=== PATIENT | male | born 1940 | race Caucasian/White ===

== ENCOUNTER 2020-01-26 14:38 | Inpatient (IN) ==
--- NOTE | 2020-01-26 15:31 | Emergency Department Note ---
History of Present Illness General Chief complaint: Weakness Stated complaint: WEAKNESS, INTERNAL BLEEDING Time Seen by Provider: 01/26/20 14:55 Source: patient, RN notes reviewed and old records reviewed Mode of arrival: ambulatory History of Present Illness Provider complaint: GI bleed Onset (ago): week(s) 1 Severity: similar to prior episodes Pain Consistency: + now resolved Maximum Pain Intensity: 0 Current Pain Intensity: 0 Relieved By: + none Exacerbated By: + none Associated symptoms: + weakness; no chest pain, no diaphoresis and no fever/chills Treatments prior to arrival: none This is a 79-year-old male who presents emergency department complaining of generalized weakness. Patient reports he has a history of a Whipple procedure and that his ranitidine was stopped. He was placed on another medication which she has been unable to get filled. He reports approximately a week ago that he began having black tarry stools. 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 Today he became weak and feels dizzy anytime he stands up therefore came to the emergency department. Home Medications Home Medications Medication Instructions Recorded Confirmed Type cimetidine 400 mg PO BID 01/26/20 01/26/20 History colestipol 1 g PO BID 01/26/20 01/26/20 History digoxin 0.125 mcg PO DAILY 01/26/20 01/26/20 History diltiazem HCl 240 mg PO DAILY 01/26/20 01/26/20 History glimepiride 2 mg DAILY 01/26/20 01/26/20 History lisinopril 5 mg PO DAILY 01/26/20 01/26/20 History loperamide [Imodium A-D] 2 mg PO BID 01/26/20 01/26/20 History warfarin 2.5 mg PO [id number] 01/26/20 01/26/20 History warfarin 5 mg PO WK 01/26/20 01/26/20 History acetaminophen [Mapap 650 mg PO Q4H PRN #6 tab 01/27/20 Rx (acetaminophen)] Allergies Allergy/AdvReac Type Severity Reaction Status Date / Time No Known Allergies Allergy Unknown Verified 01/26/20 15:27 Past Med/Surg History Medical History Atrial fibrillation (Chronic) Diabetes mellitus, type II (Chronic) Diarrhea due to malabsorption Dyslipidemia (Chronic) GERD (gastroesophageal reflux disease) (Chronic) HTN (hypertension) Pancreatic cancer (Resolved) Venous insufficiency (Chronic) Surgical History H/O cataract removal with insertion of prosthetic lens (Resolved) H/O total hip arthroplasty (Resolved) History of pancreatectomy (Resolved) "with subtotal duodenectomy performed by Dr. 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 [employer] Other Information That Helps Us Care for You: No Feels Safe at Home: Yes Safety Concerns: Feels Safe At This Time Smoking Status: Never smoker Do You Dip or Chew Tobacco: No ; Second Hand Exposure: No ; Tobacco Cessation Education Requested by Patient: No Hx Alcohol Use: No Hx Substance Use: No Review of Systems A total of 10 systems reviewed and were otherwise negative Physical Exam Vital Signs Vital Signs - 24 hr 01/26/20 14:40 01/26/20 15:32 Temperature 36.7 C Temperature Source Oral Pulse Rate 88 Pulse Rhythm Regular Pulse Strength Normal Respiratory Rate 16 Respiratory Effort / Characteristics Non-Labored Respiratory Depth Normal Respiratory Pattern Regular Blood Pressure 125/59 L Blood Pressure Mean 81 Blood Pressure Position Sitting Pulse Oximetry 97 97 Oxygen Delivery Method Room Air Room Air Sepsis Recent Fever Within 48 Hours No Sepsis Action Taken by Nursing No Action Required GENERAL: Patient is a healthy-appearing well-nourished male HEAD: Normocephalic atraumatic EYES: Ocular movements intact pupils equal and react to light OROPHARYNX mucous membranes are moist no exudates present no erythema or edema present NECK: Supple no nuchal rigidity CHEST: Good equal expansion LUNGS: Clear and equal to auscultation CARDIAC: Normal S1 and S2 ABDOMEN: Soft nontender no guarding BACK: No CVA tenderness RECTAL: Black Tarry stool, Dark red blood; grossly heme positive, No masses EXTREMITIES: No pain upon palpation normal muscle strength in all groups no clubbing cyanosis or edema NEURO: Patient is following commands is answering questions appropriately. Alert and oriented x3 Cranial Nerves 2-12 grossly intact Course Administered Medications Colestipol HCl (Colestid) 1 gm PO BID@1000,2200 [facility] Stop: 02/25/20 21:59 Last Admin: 01/27/20 11:41 Dose: 1 gm Documented by: [id number] Admin: 01/26/20 21:03 Dose: 1 gm Documented by: [id number] Digoxin (Lanoxin) 0.125 mg PO DAILY@1600 [facility] Stop: 02/26/20 15:59 Last Admin: 01/27/20 16:48 Dose: 0.125 mg Documented by: [id number] Diltiazem HCl (Cardizem Cd) 240 mg PO DAILY [facility] Stop: 02/26/20 08:59 Last Admin: 01/27/20 07:30 Dose: 240 mg Documented by: [id number] Pantoprazole Sodium 40 mg/ (Dextrose) 100 mls @ 20 mls/hr IV Q5H [facility] Stop: 02/25/20 15:44 Last Admin: 01/27/20 16:51 Dose: 20 mls/hr Documented by: [id number] Infusion: 01/27/20 16:51 Dose: 20 mls/hr Documented by: [id number] Admin: 01/27/20 13:21 Dose: 20 mls/hr Documented by: [id number] Infusion: 01/27/20 12:26 Dose: 20 mls/hr Documented by: [id number] Admin: 01/27/20 07:26 Dose: 20 mls/hr Documented by: [id number] Infusion: 01/27/20 06:56 Dose: 20 mls/hr Documented by: [id number] Admin: 01/27/20 01:56 Dose: 20 mls/hr Documented by: [id number] Infusion: 01/27/20 01:56 Dose: 20 mls/hr Documented by: [id number] Admin: 01/26/20 21:00 Dose: 20 mls/hr Documented by: [id number] Infusion: 01/26/20 21:00 Dose: 20 mls/hr Documented by: [id number] Admin: 01/26/20 16:37 Dose: 20 mls/hr Documented by: [id number] Piperacillin Sod/Tazobactam (Sod 3.375 gm/ Dextrose) 115 mls @ 28.75 mls/hr IV Q8H [facility]; Protocol Stop: 02/06/20 01:59 Last Admin: 01/27/20 18:03 Dose: 28 mls/hr Documented by: [id number] Infusion: 01/27/20 15:39 Dose: 0 mls/hr Documented by: [id number] Admin: 01/27/20 11:39 Dose: 28.8 mls/hr Documented by: [id number] Infusion: 01/27/20 05:56 Dose: 28.8 mls/hr Documented by: [id number] Admin: 01/27/20 01:56 Dose: 28.8 mls/hr Documented by: [id number] Insulin Aspart (Novolog Flexpen) 0 units SC [facility] Stop: 02/25/20 20:59 Last Admin: 01/27/20 16:49 Dose: Not Given Documented by: [id number] Cosigned by: [id number] Admin: 01/27/20 13:22 Dose: Not Given Documented by: [id number] Cosigned by: [id number] Admin: 01/27/20 09:47 Dose: Not Given Documented by: [id number] Cosigned by: [id number] Admin: 01/26/20 21:02 Dose: Not Given Documented by: [id number] Cosigned by: [id number] Insulin Glargine (Lantus Solostar Pen) 5 units SC [facility] Stop: 02/25/20 20:59 Last Admin: 01/26/20 21:01 Dose: 5 units Documented by: [id number] Cosigned by: [id number] Discontinued Medications Pantoprazole Sodium (Protonix Bolus/Drip) 0 mls @ 1 mls/hr IV ONE STA Stop: 01/26/20 15:33 Last Infusion: 01/27/20 17:09 Dose: 0 mls/hr Documented by: [id number] Admin: 01/26/20 16:37 Dose: 1 mls/hr Documented by: [id number] Pantoprazole Sodium 80 mg/ (Dextrose) 120 mls @ 400 mls/hr IV NOW ONE Stop: 01/26/20 15:49 Last Infusion: 01/26/20 16:37 Dose: 0 mls/hr Documented by: [id number] Admin: 01/26/20 16:08 Dose: 400 mls/hr Documented by: [id number] Phytonadione 5 mg/ Sodium (Chloride) 50.5 mls @ 101 mls/hr IV ONE ONE Stop: 01/26/20 16:56 Last Infusion: 01/26/20 18:15 Dose: 0 mls/hr Documented by: [id number] Admin: 01/26/20 16:48 Dose: 101 mls/hr Documented by: [id number] Piperacillin Sod/Tazobactam (Sod 3.375 gm/ Dextrose) 115 mls @ 230 mls/hr IV NOW ONE; Protocol Stop: 01/26/20 20:29 Last Infusion: 01/26/20 21:30 Dose: 230 mls/hr Documented by: [id number] Admin: 01/26/20 21:00 Dose: 230 mls/hr Documented by: [id number] Ioversol (Optiray 320 100ml) 93 ml IV ONCE PRN PRN Reason: Interaction Checking Stop: 01/30/20 15:55 Last Admin: 01/26/20 15:56 Dose: 1 ml Documented by: [id number] Lidocaine HCl (Xylocaine 2%) Confirm Administered Dose 4 ml INFIL .STK-MED ONE Stop: 01/27/20 10:51 Last Admin: 01/27/20 13:22 Dose: Not Given Documented by: [id number] Propofol (Diprivan) Confirm Administered Dose 200 mg IV .STK-MED ONE Stop: 01/27/20 10:51 Last Admin: 01/27/20 13:22 Dose: Not Given Documented by: [id number] Critical Care Time I have personally spent greater than 90 minutes of critical care time in the direct management of this patient. This includes bedside care, interpretation of diagnostic studies, and testing, discussion with consultants, patient, and family members, and other required patient management activities. This 90 minutes is in excess of all separately billable procedures. Medical Decision Making Differential Diagnosis Diverticulosis, AVM, coagulopathy, colitis, inflammatory bowel disease, malignancy, Fiordaliza-Tavarez tear, esophagitis, peptic ulcer disease, variceal bleed, gastritis, epistaxis, fissure, hemorrhoids, as well as other pathologies. Medical Records Attestation: I reviewed the patient's medical records. Home Medications Current Medication List: was personally reviewed by me Laboratory Data Attestation: I reviewed the patient's lab results. Result diagrams: 01/27/20 15:12 01/27/20 03:06 Lab Results 01/26/20 01/26/20 01/26/20 Range/Units 15:23 15:23 15:23 WBC 7.48 (4.8-10.8) K/uL RBC 2.88 L (4.7-6.1) M/uL Hgb 8.0 L (14.0-18.0) g/dL POC Hgb (14.0-18.0) g/dl Hct 24.4 L (42-52) % POC Hct (42-52) % MCV 84.7 (80-100) fL MCH 27.8 (25-34) pg MCHC 32.8 (32-36) g/dL RDW Std Deviation 48.0 H (36.4-46.3) fL RDW Coeff of Aleks 15.3 H (11.5-14.5) % Plt Count 169 (130-400) K/uL MPV 11.0 H (7.4-10.4) fL Immature Gran % (Auto) 0.4 % Neut % (Auto) 74.9 % Lymph % (Auto) 12.8 % Beckham % (Auto) 8.3 % Eos % (Auto) 3.2 % Baso % (Auto) 0.4 % Immature Gran # (Auto) 0.03 H (0.00-0.02) K/uL Neut # (Auto) 5.60 (1.4-6.5) K/uL Lymph # (Auto) 0.96 L (1.2-3.4) K/uL Beckham # (Auto) 0.62 H (0.11-0.59) K/uL Eos # (Auto) 0.24 (0-0.5) K/uL Baso # (Auto) 0.03 (0-0.2) K/uL PT 23.7 H (9.0-12.0) Seconds INR 2.4 H (0.9-1.1) APTT 32.9 H (21.0-31.0) Seconds PTT Ratio 1.2 POC Sodium (135-144) mmol/L Sodium (136-145) mmol/L POC Potassium (3.3-5.0) mmol/L Potassium (3.5-5.1) mmol/L POC Chloride (101-112) mmol/L Chloride (98-107) mmol/L Carbon Dioxide (21-32) mmol/L POC Total CO2 (24-31) mEq/l Anion Gap (3-11) POC Anion Gap (16-25) mmol/L POC BUN (7-18) mg/dl BUN (7-18) mg/dl Creatinine (0.6-1.4) mg/dl POC Creatinine (0.6-1.3) mg/dl Est Cr Clr Drug Dosing ml/min Est GFR ( Amer) Est GFR (Non-Af Amer) BUN/Creatinine Ratio (10-20) Glucose (70-99) mg/dl POC Glucose (other) (70-99) mg/dl Calcium (8.5-10.1) mg/dl POC Ioniz Calcium Ismael (1.12-1.32) mmol/l Total Bilirubin (0.2-1) mg/dl AST (15-37) U/L ALT (12-78) U/L Alkaline Phosphatase (45-117) U/L Total Creatine Kinase (39-308) U/L CK-MB (CK-2) (0.5-3.6) ng/ml CK/CKMB % Calc (0-3.0) Troponin I (0-0.045) ng/ml Total Protein (6.4-8.2) gm/dl Albumin (3.4-5.0) gm/dl Globulin (2.5-4.0) gm/dl Albumin/Globulin Ratio (0.9-2) Blood Type B Positive Antibody Screen NEGATIVE Crossmatch See Detail 01/26/20 01/26/20 Range/Units 15:23 15:34 WBC (4.8-10.8) K/uL RBC (4.7-6.1) M/uL Hgb (14.0-18.0) g/dL POC Hgb 7.8 L (14.0-18.0) g/dl Hct (42-52) % POC Hct 23 L (42-52) % MCV (80-100) fL MCH (25-34) pg MCHC (32-36) g/dL RDW Std Deviation (36.4-46.3) fL RDW Coeff of Aleks (11.5-14.5) % Plt Count (130-400) K/uL MPV (7.4-10.4) fL Immature Gran % (Auto) % Neut % (Auto) % Lymph % (Auto) % Beckham % (Auto) % Eos % (Auto) % Baso % (Auto) % Immature Gran # (Auto) (0.00-0.02) K/uL Neut # (Auto) (1.4-6.5) K/uL Lymph # (Auto) (1.2-3.4) K/uL Beckham # (Auto) (0.11-0.59) K/uL Eos # (Auto) (0-0.5) K/uL Baso # (Auto) (0-0.2) K/uL PT (9.0-12.0) Seconds INR (0.9-1.1) APTT (21.0-31.0) Seconds PTT Ratio POC Sodium 139 (135-144) mmol/L Sodium 137 (136-145) mmol/L POC Potassium 4.6 (3.3-5.0) mmol/L Potassium 4.6 (3.5-5.1) mmol/L POC Chloride 106 (101-112) mmol/L Chloride 108 H (98-107) mmol/L Carbon Dioxide 22 (21-32) mmol/L POC Total CO2 22 L (24-31) mEq/l Anion Gap 8.0 (3-11) POC Anion Gap 16.0 (16-25) mmol/L POC BUN 26 H (7-18) mg/dl BUN 28 H (7-18) mg/dl Creatinine 1.38 (0.6-1.4) mg/dl POC Creatinine 1.4 H (0.6-1.3) mg/dl Est Cr Clr Drug Dosing 47.8 ml/min Est GFR ( Amer) 56.8 Est GFR (Non-Af Amer) 49.0 BUN/Creatinine Ratio 20.2 H (10-20) Glucose 219 H (70-99) mg/dl POC Glucose (other) 218 H (70-99) mg/dl Calcium 8.3 L (8.5-10.1) mg/dl POC Ioniz Calcium Ismael 1.22 (1.12-1.32) mmol/l Total Bilirubin 0.5 (0.2-1) mg/dl AST 29 (15-37) U/L ALT 38 (12-78) U/L Alkaline Phosphatase 146 H (45-117) U/L Total Creatine Kinase 123 (39-308) U/L CK-MB (CK-2) 3.9 H (0.5-3.6) ng/ml CK/CKMB % Calc 3.2 H (0-3.0) Troponin I 0.019 (0-0.045) ng/ml Total Protein 6.3 L (6.4-8.2) gm/dl Albumin 3.1 L (3.4-5.0) gm/dl Globulin 3.2 (2.5-4.0) gm/dl Albumin/Globulin Ratio 1.0 (0.9-2) Blood Type Antibody Screen Crossmatch Imaging Data Radiologist's Impression: [place] [phone] CT Scan Report Patient: DOMENIC GUEVARA Admit Date: 01/26/20 MR#: [id number] Address1: [address] [place] [address] Acct ID:[id number] Address2: Date: 1940 [facility] Zip: [place] [address] Age: 79 Location: ED Sex: M Room/Bed: Att Phy: Diagnosis: WEAKNESS, INTERNAL BLEEDING Lorie Phy: Jordan Grant MD Service Date: 01/26/20 [facility] Phy: Interpreting Phy: Jordan Pang MD Admit Phy: Ordering Phy: Benito Carrillo MD cc: ~ CT abd pelvis IV con only CT DOSE: 913.92 mGycm HISTORY: Pain Pt c/o hx of whipple, abd pain TECHNIQUE: Multiaxial CT images of the abdomen and pelvis were performed following the use of intravenous contrast. A dose lowering technique was utilized adhering to the principles of ALARA. COMPARISON STUDY: 06/04/2016 FINDINGS: Small bilateral pleural effusions. Small parenchymal infiltrate/atelectasis right base. The liver is uniform. There is a trace amount of perihepatic ascites. Spleen remains unremarkable. There are findings of a prior Whipple type procedure. Kidneys are negative for hydronephrosis. Several small cortical renal cysts are present bilaterally. These are similar compared to the prior study. The cystic density previously described at the juncture of the pancreatic body and jejunum are diminished compared to the prior study. Maximum dimensions of diminished from 3.3 to 1.5 cm and 2.2 to 1.0 cm. Dilatation of the residual pancreatic duct persists. The bowel pattern is suggestive of a nonspecific enteritis. Postoperative changes appear to be nonobstructive. There is no significant bowel distention. Bladder is midline. There is a trace amount of infiltrative change of the pararenal spaces bilaterally considered chronic. IMPRESSION: 1. Mild nonspecific generalized enteritis. 2. Trace perihepatic ascites. 3. Operative changes consistent with a prior Whipple type procedure 4. Improved appearance to the cystic pancreatic/anastomotic lesions described previously. 5. Interval development of a trace amount of bilateral pleural fluid with mild atelectasis right lung base. ACT 112: Negative or not required by law. The above report was generated using voice recognition software. It may contain grammatical, syntax or spelling errors. Electronically signed by: Jordan Pang M.D. 01/26/2020 4:12 PM Dictated: 01/26/20 1605 Transcribed: 01/26/20 1605 [place], [place] [phone] XRay Report Patient: DOMENIC GUEVARA Admit Date: 01/26/20 MR#: [id number] Address1: [address] [place] [address] Acct ID:[id number] Address2: Date: 1940 [facility] Zip: [place] [address] Age: 79 Location: ED Sex: M Room/Bed: Att Phy: Diagnosis: WEAKNESS, INTERNAL BLEEDING Lorie Phy: Jordan Grant MD Service Date: 01/26/20 [facility] Phy: Interpreting Phy: Jordan Pang MD Admit Phy: Ordering Phy: Benito Carrillo MD cc: ~ XR chest 1V portable CLINICAL HISTORY: Pt c/o weakness dyspnea COMPARISON STUDY: 01/26/2020 FINDINGS: The bones soft tissues and hemidiaphragms are normal. The cardiomediastinal silhouette is normal. The lungs are clear. The pulmonary vasculature is normal. IMPRESSION: Negative chest. ACT 112: Negative or not required by law. The above report was generated using voice recognition software. It may contain grammatical, syntax or spelling errors. Electronically signed by: Jordan Pang M.D. 01/26/2020 4:13 PM Dictated: 01/26/201611 Transcribed: 01/26/201611 ECG Data Attestation: I personally reviewed and interpreted this ECG as follows: Indication: + weakness Rate (beats per minute): 82 Rhythm: + atrial fibrillation ECG Intervals/blocks: + Normal QT-c (401) ECG Linn: + Normal ECG ST segments: no ST depression and no ST elevation ECG Findings: + PVCs Comparison ECG Date: from (12/30/2015) Change: the following changes noted (PVCs noted) Blood Pressure Blood Pressure Findings: Elevated blood pressure Blood Pressure Disposition: elevated BP felt to be situational MDM Narrative This is a 79-year-old male who presents emergency department with concerns over GI bleeding. The patient has a history of Whipple procedure. He has never needed a blood transfusion before however his hemoglobin here is 8.0. Blood consent was signed and placed on the chart. I did discuss the case with the hospitalist service who did agree to admit the patient. Patient was also started on Protonix bolus and drip. Patient is in agreement with the treatment plan. The patient was evaluated during the global COVID-19 pandemic, and that diagnosis was suspected/considered upon their initial presentation. Their evaluation, treatment and testing was consistent with current guidelines for patients who present with complaints or symptoms that may be related to COVID- 19. Cardiac monitoring: An order was placed for continuous cardiac monitoring. The monitor shows a rate of 68 with atrial fibrillation rhythm. Impression & Plan GIB (gastrointestinal bleeding), Atrial fibrillation, Acute blood loss anemia Discharge Plan Visit Data *Final* Discharge Date/Time: 01/26/20 19:00 Chief Complaint: Weakness Stated Complaint: WEAKNESS, INTERNAL BLEEDING ED Provider: Benito Carrillo Discharge Problem: GIB (gastrointestinal bleeding), Atrial fibrillation, Acute blood loss anemia Patient Disposition: Admitted As Inpatient Condition: Serious Discharge Instructions Interventions: ED Discharge Assessment Last Done: 01/26/20 19:00 Discharge Problem: GIB (gastrointestinal bleeding) Qualifiers: GI bleed type/associated pathology: unspecified gastrointestinal hemorrhage type Qualified Code(s): K92.2 - Gastrointestinal hemorrhage, unspecified Atrial fibrillation Qualifiers: Atrial fibrillation type: unspecified Qualified Code(s): I48.91 - Unspecified atrial fibrillation
[2020-01-26] MEDS ORDERED: SODIUM CHLORIDE 0.9% 250 ML IV PRN ×2 (15:32→16:27)
[2020-01-26] MEDS ORDERED: PANTOPRAZOLE BOLUS/DRIP 1 EA IV STA (15:32)
[2020-01-26] MEDS ORDERED: PANTOprazole 80 MG in DEXTROSE 5% 100 ML IV ONE ×2 (15:32→15:45)
[2020-01-26 15:44] LABS: Basophils # (auto) 0.03 K/uL (0-0.2); Basophils % (auto) 0.4 %; Eosinophils # (auto) 0.24 K/uL (0-0.5); Eosinophils % (auto) 3.2 %; Hematocrit (blood only) 24.4 % (42-52); Immature Granulocytes # (auto) 0.03 K/uL (0.00-0.02); Immature Granulocytes % (auto) 0.4 %; Lymphocytes # (auto) 0.96 K/uL (1.2-3.4); Lymphocytes % (auto) 12.8 %; Mean Corpuscular Hemoglobin 27.8 pg (25-34); Mean Corpuscular Hgb Conc 32.8 g/dL (32-36); Mean Corpuscular Volume 84.7 fL (80-100); Monocytes # (auto) 0.62 K/uL (0.11-0.59); Monocytes % (auto) 8.3 %; Neutrophils % (auto) 74.9 %; Platelet Count 169 K/uL (130-400); RDW Coefficient of Variation 15.3 % (11.5-14.5); Red Blood Count 2.88 M/uL (4.7-6.1); White Blood Count 7.48 K/uL (4.8-10.8)
[2020-01-26 15:46] LABS: iSTAT Creatinine 1.4 mg/dl (0.6-1.3); iSTAT Hemoglobin 7.8 g/dl (14.0-18.0); iSTAT Ionized Calcium 1.22 mmol/l (1.12-1.32); iSTAT Potassium 4.6 mmol/L (3.3-5.0)
[2020-01-26 15:56] LABS: INR 2.4 (0.9-1.1); Partial Thromboplastin Ratio 1.2; Partial Thromboplastin Time 32.9 Seconds (21.0-31.0); Prothrombin Time 23.7 Seconds (9.0-12.0)
[2020-01-26] MEDS ORDERED: IOVERSOL 100ml IV PRN (15:56)
[2020-01-26 16:00] LABS: Albumin Level 3.1 gm/dl (3.4-5.0); BUN Creatinine Ratio 20.2 (10-20); Calcium 8.3 mg/dl (8.5-10.1); Creatinine Clr Calc Pharmacy 47.8 ml/min; Est GFR (African American) 56.8; Potassium 4.6 mmol/L (3.5-5.1)
[2020-01-26 16:05] LABS: Bilirubin,Total 0.5 mg/dl (0.2-1); Creatine Kinase MB 3.9 ng/ml (0.5-3.6); Globulin 3.2 gm/dl (2.5-4.0); Total Protein 6.3 gm/dl (6.4-8.2); Troponin I 0.019 ng/ml (0-0.045)
--- NOTE | 2020-01-26 16:13 | CT Scan Report ---
CT abd pelvis IV con only CT DOSE: 913.92 mGycm HISTORY: Pain Pt c/o hx of whipple, abd pain TECHNIQUE: Multiaxial CT images of the abdomen and pelvis were performed following the use of intrave nous contrast. A dose lowering technique was utilized adhering to the principles of ALARA. COMPARISON STUDY: 06/04/2016 FINDINGS: Small bilateral pleural effusions. Small parenchymal infiltrate/atelectasis right base. The liver is uniform. There is a trace amount of perihepatic ascites. Spleen remains unremarkable. There are findings of a prior Whipple type procedure. Kidneys are negative for hydronephrosis. Severa l small cortical renal cysts are present bilaterally. These are similar compared to the prior study. The cystic density previously described at the juncture of the pancreatic body and jejunum are dimini shed compared to the prior study. Maximum dimensions of diminished from 3.3 to 1.5 cm and 2.2 to 1.0 cm. Dilatation of the residual pancreatic duct persists. The bowel pattern is suggestive of a nonspecific enteritis. Postoperative changes appear to be nonobs tructive. There is no significant bowel distention. Bladder is midline. There is a trace amount of infiltrative change of the pararenal spaces bilaterall y considered chronic. IMPRESSION: 1. Mild nonspecific generalized enteritis. 2. Trace perihepatic ascites. 3. Operative changes consistent with a prior Whipple type procedure 4. Improved appearance to the cystic pancreatic/anastomotic lesions described previously. 5. Interval development of a trace amount of bilateral pleural fluid with mild atelectasis right lung base. ACT 112: Negative or not required by law. The above report was generated using voice recognition software. It may contain grammatical, syntax or spelling errors. Electronically signed by: Jordan Pang M.D. 01/26/2020 4:12 PM
--- NOTE | 2020-01-26 16:14 | XRay Report ---
XR chest 1V portable CLINICAL HISTORY: Pt c/o weakness dyspnea COMPARISON STUDY: 01/26/2020 FINDINGS: The bones soft tissues and hemidiaphragms are normal. The cardiomediastinal silhouette is n ormal. The lungs are clear. The pulmonary vasculature is normal. IMPRESSION: Negative chest. ACT 112: Negative or not required by law. The above report was generated using voice recognition software. It may contain grammatical, syntax or spelling errors. Electronically signed by: Jordan Pang M.D. 01/26/2020 4:13 PM
[2020-01-26] MEDS ORDERED: PHYTONADIONE 5 MG in SODIUM CHLORIDE 0.9% 50 ML IV ONE (16:27)
--- NOTE | 2020-01-26 16:29 | Electrocardiogram Report ---
Test Reason : Blood Pressure : / mmHG Vent. Rate : 082 BPM Atrial Rate : 054 BPM P-R Int : 000 ms QRS Dur : 074 ms QT Int : 344 ms P-R-T Axes : 000 013 052 degrees QTc Int : 401 ms Atrial fibrillation with premature ventricular or aberrantly conducted complexes Nonspecific T wave abnormality Abnormal ECG When compared with ECG of 30-DEC-2015 14:48, Borderline criteria for Inferior infarct are no longer Present Confirmed by Bob Ramírez ([id number]) on 01/26/2020 4:28:54 PM Referred By: REFERRED SELF Confirmed By:Bob Ramírez
[2020-01-26] MEDS: PANTOprazole 40 MG in DEXTROSE 5% 100 ML IV SCH ×2 (16:37→21:00)
--- NOTE | 2020-01-26 17:21 | History & Physical Report ---
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 In ED he remained hemodynamically stable. Lab work notable for H&H 8.0 and 24.4, WBC 7.48, platelet 164, INR 2.4, BUN 28, creatinine 1.3, glucose 216, chest x-ray no acute abnormality. CT scan abdomen pelvis concerning for nonspecific enteritis. He was initiated on PPI bolus and drip, given 5 mg IV vitamin K and type and cross for transfusion. admit to PCU Continue PPI gtt Transfuse 1 unit prbc repeat H&H and PT/INR @ 9pm H&H q6h , transfuse hgb < 8.0 consult GI clear liquid diet, NPO after midnight IV zosyn due to concern for enteritis (3) Enteritis: CT scan abd/pelvis: Mild nonspecific generalized enteritis. afebrile, wbc WNL, but pt with bloody diarrhea Chronic diarrhea due to hx of whipple procedure due to pancreatic ca in 2009 on colestipol No increase in freq of diarrhea check stool studies (4) FRANKO (acute kidney injury): baseline cr 1.0 Bun/Cr 28 and 1.38 today likely in setting of hypovolemia and GIB hold lisinopril, Transfuse monitor renal fxn, avoid nephrotoxic agents (5) Diabetes mellitus, type II: Last A1c 6.3 09/2019 Repeat A1c in a.m. Glimepiride BSG [address] on low-dose Lantus/NovoLog per protocol (6) Atrial fibrillation: Chronic Afib, [id number] 3 rate controlled with diltiazem, digoxin and on warfarin for prison anticoagulation Hold warfarin, IV vit K given to reverse INR repeat INR @ 9pm (7) History of pancreatic cancer: hx of pancreatic ca s/p whipple procedure in 2009 (8) HTN (hypertension): continue diltiazem hold lisinopril in setting of GIB bleed and hypovolemia (9) DVT prophylaxis: SCD/TEDS Disposition: admit to PCU Follow up: PCP Dr. Grant upon discharge Pt was seen and examined in collaboration with Dr. Miguel, please see addendum History of Present Illness Chief Complaint: Black tarry stools x4 to 5 days. 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 He states approximately a week and a half ago he ran out of his ranitidine and was unable to get it refilled secondary to it coming off the market. He noticed approximately a week ago he started developing epigastric discomfort that would come and go. Meals would make it worse. Pain was nonradiating, described as an ache, wax and wane, improved with time and over the past 4 to 5 days has been associated with black tarry stool. What alarmed him this morning was when he had a bowel movement and also noticed bright red blood. He called into his PCP who recommended he go to the ED for further evaluation. He further admits to being lightheaded, dizzy but no overt syncope, dyspnea on exertion and overall weak. He does have chronic diarrhea ever since having the procedure and takes colestipol 1 g twice a day for this. He does not feel his diarrhea is any worse as he usually has 3 BMs a day; however, he has had 4 already today. 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 He denies any fever, chills, sweats, syncope, chest pain, palpitations, shortness with at rest, cough, hemoptysis, nausea, vomiting, dysuria, increased urgency or frequency with urination. He denies any weight loss. His appetite is overall been decreased. He denies any exposure to known COVID-19 contacts, denies loss of taste or smell and has not traveled out of the state in the past 14 days. In ED he remained hemodynamically stable. Lab work notable for H&H 8.0 and 24.4, WBC 7.48, platelet 164, INR 2.4, BUN 28, creatinine 1.3, glucose 216, chest x-ray no acute abnormality. CT scan abdomen pelvis concerning for nonspecific enteritis. He was initiated on PPI bolus and drip, given 5 mg IV vitamin K and type and cross for transfusion. Allergies Allergy/AdvReac Type Severity Reaction Status Date / Time No Known Allergies Allergy Unknown Verified 01/26/20 15:27 Home Medications Home Medications Medication Instructions Recorded Confirmed Type cimetidine 400 mg PO BID 01/26/20 01/26/20 History colestipol 1 g PO BID 01/26/20 01/26/20 History digoxin 0.125 mcg PO DAILY 01/26/20 01/26/20 History diltiazem HCl 240 mg PO DAILY 01/26/20 01/26/20 History glimepiride 2 mg DAILY 01/26/20 01/26/20 History lisinopril 5 mg PO DAILY 01/26/20 01/26/20 History loperamide [Imodium A-D] 2 mg PO BID 01/26/20 01/26/20 History warfarin 2.5 mg PO [id number] 01/26/20 01/26/20 History warfarin 5 mg PO WK 01/26/20 01/26/20 History Past Med/Surg History Medical History (Updated 01/26/20 @ 17:50 by Nichol Rowland PA-C) Atrial fibrillation (Chronic) Diabetes mellitus, type II (Chronic) Diarrhea due to malabsorption Dyslipidemia (Chronic) GERD (gastroesophageal reflux disease) (Chronic) HTN (hypertension) Pancreatic cancer (Resolved) Venous insufficiency (Chronic) Surgical History (Updated 01/26/20 @ 17:25 by Nichol Rowland PA-C) H/O cataract removal with insertion of prosthetic lens (Resolved) H/O total hip arthroplasty (Resolved) History of pancreatectomy (Resolved) "with subtotal duodenectomy performed by Dr. 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 [employer] Feels Safe at Home: Yes Smoking Status: Never smoker Hx Alcohol Use: No Hx Substance Use: No Review of Systems Review of Systems: All systems reviewed & are unremarkable except as noted in HPI & below Physical Exam Physical Exam: Constitutional: WD/WN, pale, male, vitals as above, NAD, sitting up in bed, pleasant, conversing easily Head: Normocephalic, Atraumatic Eyes: PERRL, conjunctivae normal, anicteric sclerae ENMT: external ear and nose normal, oropharynx normal Neck: trachea midline, no thyromegaly normal visual inspection Respiratory: normal respiratory effort, lungs clear to auscultation, no wheeze, rales, rhonchi. Normal insp/exp effort, no accessory muscle use Cardiovascular: IRR/IRR, no murmur, trace pretibial edema, bilateral venous insufficiency changes regarding the left, bilateral pedal pulse +1 and equal Vessels: no JVD or carotid bruit Chest: normal inspection of chest Abdomen: normal bowel sounds, soft, tender to palpation in epigastrium, no rebound, no guarding, no rigidity, no hepatosplenomegaly Musculoskeletal: no cyanosis or clubbing, extremities motor strength 5/5 Skin: no rashes, warm and dry normal turgor Neurologic: PERRL, EOMI, accommodation nl, no face palsy, no dysarthria CN's II-XI intact bilaterally and moves all extremities Psychiatric: A+Ox3, euthymic affect Lymphatic: no cervical or axillary lymphadenopathy : deferred Results & Data Results & Data ([facility]) Vital Signs (Past 12 Hours) Vital Signs Temp Pulse Resp BP Pulse Ox 01/26/20 16:36 78 22 128/59 L 99 01/26/20 15:32 97 01/26/20 14:40 36.7 C 88 16 125/59 L 97 Laboratory Results Short CBC 01/26/20 Range/Units 15:23 WBC 7.48 (4.8-10.8) K/uL Hgb 8.0 L (14.0-18.0) g/dL Hct 24.4 L (42-52) % Plt Count 169 (130-400) K/uL BMP 01/26/20 15:23 Sodium 137 Potassium 4.6 Chloride 108 H Carbon Dioxide 22 BUN 28 H Creatinine 1.38 Glucose 219 H Calcium 8.3 L Cardiac Enzymes 01/26/20 Range/Units 15:23 Total Creatine Kinase 123 (39-308) U/L CK-MB (CK-2) 3.9 H (0.5-3.6) ng/ml Troponin I 0.019 (0-0.045) ng/ml Liver Function 01/26/20 Range/Units 15:23 Total Bilirubin 0.5 (0.2-1) mg/dl AST 29 (15-37) U/L ALT 38 (12-78) U/L Alkaline Phosphatase 146 H (45-117) U/L Albumin 3.1 L (3.4-5.0) gm/dl Diagnostic Findings CXR: IMPRESSION: Negative chest. CT abd/Pelvis: IMPRESSION: 1. Mild nonspecific generalized enteritis. 2. Trace perihepatic ascites. 3. Operative changes consistent with a prior Whipple type procedure 4. Improved appearance to the cystic pancreatic/anastomotic lesions described previously. 5. Interval development of a trace amount of bilateral pleural fluid with mild atelectasis right lung base. ECG Rate (beats per minute): 80 Rhythm: atrial fibrillation Code Status & VTE Plan Code Status Full Code VTE Prophylaxis Plan VTE Prophylaxis will be ordered: Yes Reason for no VTE drug order: Contraindicated Supervising Physician Co-Signing Physician Notes I saw this patient with the physician clinical data assistant, I participated in the history, physical, review of systems, and physical exam. I reviewed the medications with the patient and the physician clinical data assistant and helped reconcile the medications. I helped take a detailed family and social history as well. I formulated the assessment and plan personally with the physician clinical data assistant and went over it with the patient. ROS-No Headache, No Visual Changes, No Nausea, No Vomiting, No Fever, No Chills, No Neck Pain or Stiffness, No Chest Pain, No Palpitations, No SOB, No ARROYO, No Cough, No Sputum, No Wheezing, No Abdominal Pain, No Diarrhea, No Hematemesis, No Hemoptysis, No Unexpected Weight Loss, No Flank pain, + Melena, +BRBPR, No Hematochezia, No Frequency, No Urgency, No Burning, No Hematuria, No Rashes, No Diaphoresis. Appetite is Normal Physical Exam Gen-AAO x 3, NAD, Afebrile Head-NCAT, EOMI, PERRLA, Anicteric Sclera, No Posterior Pharyngeal Erythema Neck-Supple, No JVD, No Thyromegaly, No Masses, No LAD, No Bruits Lungs-Clear to Auscultation Bilaterally, No Rales, No Rhonchi, No Wheezing, No Crepitus Chest-No S4, +S1, +S2, No S3, No Murmurs, No Rubs, No Gallops, No Ectopy Abdomen-Soft, Bowel Sounds Present, Non Tender, Non Distended, No Hepatomegaly, No Splenomegaly, No Palpable Masses, No Rebound, No Rigidity, No Guarding Musculoskeletal-Full Range of Motion Bilaterally, No CVAT Extremities-No Cyanosis, No Clubbing, No Edema Nuero-Cranial Nerves II-XII grossly intact, Motor WNL, DTRs WNL, Strength WNL, Non Focal Psych-Normal Mood
[2020-01-26] MEDS ORDERED: GLUCOSE 10 TABS/TUBE PO PRN (19:28)
[2020-01-26] MEDS ORDERED: CARBOHYDRATES FOR HYPOGLYCEMIA PO PRN (19:28)
[2020-01-26] MEDS ORDERED: GLUCAGON FOR INJ 1 MG VIAL SQ PRN (19:28)
[2020-01-26] MEDS ORDERED: ACETAMINOPHEN 325 MG TAB PO PRN (19:28)
[2020-01-26] MEDS ORDERED: ONDANSETRON INJ 2 MG/ML 2 ML VIAL IV PRN (19:28)
[2020-01-26] MEDS ORDERED: PIPERACILL/TAZOBAC CONSULT ACTIVE PRN (19:28)
[2020-01-26] MEDS ORDERED: DEXTROSE 50% 50 ML SYRINGE IV PRN (19:28)
[2020-01-26] MEDS ORDERED: POLYETHYLENE (MIRALAX) 17 GM PACK PO PRN (19:28)
[2020-01-26] MEDS ORDERED: GLUCOSE 40% GEL 15 GM TUBE PO PRN (19:28)
[2020-01-26] MEDS ORDERED: PIPERACILLIN/TAZOBACTAM 3.375 GM in DEXTROSE 5% 100 ML IV ONE (20:00)
[2020-01-26] MEDS ORDERED: INSULIN GLARGINE SOLOSTAR 100 UNITS/ML 3 ML PEN SC SCH (21:00)
[2020-01-26] MEDS: INSULIN ASPART 100 UNITS/ML 3 ML PEN SC SCH (21:02)
[2020-01-26] MEDS: COLESTIPOL HCL 1 GM TAB PO SCH (21:03)
[2020-01-26 21:13] LABS: Hematocrit (blood only) 27.6 % (42-52); Hemoglobin 9.2 g/dL (14.0-18.0)
[2020-01-26 21:23] LABS: INR 1.7 (0.9-1.1); Prothrombin Time 17.9 Seconds (9.0-12.0)
[2020-01-27] MEDS: PANTOprazole 40 MG in DEXTROSE 5% 100 ML IV SCH ×4 (01:56→16:51)
[2020-01-27] MEDS: PIPERACILLIN/TAZOBACTAM 3.375 GM in DEXTROSE 5% 100 ML IV SCH ×3 (01:56→18:03)
[2020-01-27 03:27] LABS: Basophils # (auto) 0.03 K/uL (0-0.2); Basophils % (auto) 0.4 %; Eosinophils # (auto) 0.33 K/uL (0-0.5); Eosinophils % (auto) 4.9 %; Hemoglobin 7.8 g/dL (14.0-18.0); Immature Granulocytes # (auto) 0.04 K/uL (0.00-0.02); Immature Granulocytes % (auto) 0.6 %; Lymphocytes # (auto) 1.37 K/uL (1.2-3.4); Lymphocytes % (auto) 20.4 %; Mean Corpuscular Hemoglobin 28.4 pg (25-34); Mean Corpuscular Hgb Conc 33.9 g/dL (32-36); Mean Corpuscular Volume 83.6 fL (80-100); Mean Platelet Volume 10.6 fL (7.4-10.4); Monocytes # (auto) 0.44 K/uL (0.11-0.59); Monocytes % (auto) 6.6 %; Neutrophils # (auto) 4.49 K/uL (1.4-6.5); Neutrophils % (auto) 67.1 %; Platelet Count 136 K/uL (130-400); RDW Coefficient of Variation 15.1 % (11.5-14.5); RDW Standard Deviation 45.9 fL (36.4-46.3); Red Blood Count 2.75 M/uL (4.7-6.1)
[2020-01-27 03:39] LABS: INR 1.5 (0.9-1.1); Prothrombin Time 15.1 Seconds (9.0-12.0)
[2020-01-27 03:46] LABS: Albumin Level 2.6 gm/dl (3.4-5.0); BUN Creatinine Ratio 19.7 (10-20); Calcium 7.8 mg/dl (8.5-10.1); Creatinine Clr Calc Pharmacy 57.5 ml/min; Est GFR (African American) 72.3; Est GFR (Non-African American) 62.4; Potassium 4.2 mmol/L (3.5-5.1)
[2020-01-27 03:48] LABS: Albumin Globulin Ratio 0.8 (0.9-2); Bilirubin,Total 0.7 mg/dl (0.2-1); Globulin 3.1 gm/dl (2.5-4.0); Total Protein 5.7 gm/dl (6.4-8.2)
[2020-01-27 03:52] LABS: Polychromasia 1+
[2020-01-27 06:23] LABS: Estimated Average Glucose 120 mg/dl; Hemoglobin A1C 5.8 % (4.5-5.6)
--- NOTE | 2020-01-27 06:23 | Hospitalist Progress Note ---
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 In ED he remained hemodynamically stable. Lab work notable for H&H 8.0 and 24.4, WBC 7.48, platelet 164, INR 2.4, BUN 28, creatinine 1.3, glucose 216, chest x-ray no acute abnormality. CT scan abdomen pelvis concerning for nonspecific enteritis. He was initiated on PPI bolus and drip, given 5 mg IV vitamin K and type and cross for transfusion. PCU Continue PPI gtt Transfuse 1 unit prbc H&H q6h , transfuse hgb < 8.0 GI to see NPO IV Zosyn due to concern for enteritis (3) Enteritis: CT scan abd/pelvis: Mild nonspecific generalized enteritis. afebrile, wbc WNL, but pt with bloody diarrhea and melena Chronic diarrhea due to hx of whipple procedure due to pancreatic ca in 2009 on colestipol No increase in freq of diarrhea check stool studies (4) FRANKO (acute kidney injury): baseline cr 1.0 likely in setting of hypovolemia and GIB hold lisinopril, Transfuse monitor renal fxn, avoid nephrotoxic agents (5) Diabetes mellitus, type II: Last A1c 6.3 09/2019 Repeat A1c in a.m. Glimepiride BSG 219 in ED Lantus/NovoLog per protocol (6) Atrial fibrillation: Chronic Afib, [id number] 3 rate controlled with diltiazem, digoxin and on warfarin for residential anticoagulation Hold warfarin, IV Vit K given (7) History of pancreatic cancer: hx of pancreatic ca s/p whipple procedure in 2009 (8) HTN (hypertension): continue diltiazem hold lisinopril in setting of GIB bleed and hypovolemia (9) DVT prophylaxis: SCD/TEDS Disposition: admit to PCU Follow up: PCP Dr. Grant upon discharge Labs Checked ROS-No Headache, No Visual Changes, No Nausea, No Vomiting, No Fever, No Chills, No Neck Pain or Stiffness, No Chest Pain, No Palpitations, No SOB, No ARROYO, No Cough, No Sputum, No Wheezing, No Abdominal Pain, No Diarrhea, No Hematemesis, No Hemoptysis, No Unexpected Weight Loss, No Flank pain, No Melena, No Hematochezia, No Frequency, No Urgency, No Burning, No Hematuria, No Rashes, No Diaphoresis. Appetite is Normal Physical Exam Gen-AAO x 3, NAD, Afebrile Head-NCAT, EOMI, PERRLA, Anicteric Sclera, No Posterior Pharyngeal Erythema Neck-Supple, No JVD, No Thyromegaly, No Masses, No LAD, No Bruits Lungs-Clear to Auscultation Bilaterally, No Rales, No Rhonchi, No Wheezing, No Crepitus Chest-No S4, +S1, +S2, No S3, No Murmurs, No Rubs, No Gallops, No Ectopy Abdomen-Soft, Bowel Sounds Present, Non Tender, Non Distended, No Hepatomegaly, No Splenomegaly, No Palpable Masses, No Rebound, No Rigidity, No Guarding Musculoskeletal-Full Range of Motion Bilaterally, No CVAT Extremities-No Cyanosis, No Clubbing, No Edema Nuero-Cranial Nerves II-XII grossly intact, Motor WNL, DTRs WNL, Strength WNL, Non Focal Psych-Normal Mood Admission and Anticipated Discharge Date Admission Date: January 26, 2020 Results & Data Results & Data ([facility]) Vital Signs (Past 12 Hours) Vital Signs Temp Pulse Pulse Resp BP BP Pulse Ox 01/27/20 04:00 82 16 95 01/27/20 03:30 80 23 94 01/27/20 03:19 80 20 122/56 L 95 01/27/20 03:00 76 21 93 01/27/20 02:30 77 24 94 01/27/20 02:18 80 14 123/61 94 01/27/20 02:00 36.6 C 82 21 97 01/27/20 01:30 66 17 97 01/27/20 01:18 70 19 109/57 L 94 01/27/20 01:00 69 20 96 01/27/20 00:30 60 20 96 01/27/20 00:19 61 16 114/37 L 97 01/27/20 00:00 36.7 C 59 L 21 96 05/04/20 23:30 62 19 98 01/26/20 23:19 70 17 123/55 L 97 01/26/20 23:00 76 20 95 01/26/20 22:00 36.7 C 65 18 123/63 01/26/20 21:00 36.7 C 80 16 99 01/26/20 20:47 69 18 132/58 L 97 01/26/20 20:30 79 15 100 01/26/20 20:17 69 17 126/62 98 01/26/20 20:00 69 21 99 01/26/20 19:47 36.7 C 70 21 128/66 99 01/26/20 19:30 147 H 20 98 01/26/20 19:28 36.7 C 91 H 18 127/74 100 01/26/20 19:15 36.7 C 74 18 128/66 99 01/26/20 18:42 36.7 C 71 24 116/50 L 98 01/26/20 18:27 36.7 C 84 24 132/54 L 98
--- NOTE | 2020-01-27 08:48 | Gastrointestinal Consultation ---
Date of Consultation January 27, 2020 Assessment & Plan (1) Acute blood loss anemia: (2) Enteritis: (3) Gastrointestinal hemorrhage with melena: (4) BRBPR (bright red blood per rectum): Pt is a 79 y/o male w significant hx of pancreatic ca s/p Whipple in 2009, Afib on Coumadin presented w epigastric pain, melena x 4-5 days, started to have BRBPR 2 days ago. He is having symptomatic anemia. INR on presentation 1.7. - Keep NPO for EGD eval by Dr. Cortes today - Continue PPI gtt - Monitor H/H and transfuse prn - If diarrhea, check stool cx and Cdiff given enteritis on CT - GI will give further recs after EGD is completed today Supervising Physician Co-Signing Physician Notes Attending attestation I have seen, examined this patient, and agree with the findings and above by our mid-level provider TIARA Garcia, with the following additions - Signs of GI bleed, will plan on EGD today. - Further recs until after EGD History of Present Illness Reason for Consultation: GI bleed Requesting Physician: Dr. Car Miguel Attending Physician: Dr. Andriy Cortes History of Present Illness Pt is a 79 y/o male w hx of pancreatic ca s/p Whipple in 2009, FRANKO, HTN, DM II, GERD, dyslipidemia, Afib on Coumadin who presented yesterday w c/o black tarry stools since last (4 days). He states before that he was having trouble getting med substitute for Ranitidine and had been having post prandial epigastric pain for over a week. He has diarrhea at baseline after his Whipple, usually managed w Colestipol and Imodium daily. He noticed a sudden change in stool color last and aware he was bleeding. Started to have BRBPR x 2 days ago and he stopped taking his Coumadin in Sunday. He denies any n/v. He felt weak and lightheaded, no CP, SOB. ? weight loss 10 lbs in last week Upon eval, noted H/H 06/20 -> 7.8/23 after 1u PRBC transfusion. Plt 136, INR 1.7 -> 1.5 this AM. BUN/Cr 22/1.3. CXR unremarkable CT abd/pelvis w contrast: 1. Mild nonspecific generalized enteritis. 2. Trace perihepatic ascites. 3. Operative changes consistent with a prior Whipple type procedure 4. Improved appearance to the cystic pancreatic/anastomotic lesions described previously. 5. Interval development of a trace amount of bilateral pleural fluid with mild atelectasis right lung base. Last EGD 2015 - LA grade A reflux esophagitis, gastroenteric anastomosis normal Last colonoscopy 2013 - diverticulosis entire colon He denies tobacco, ETOH, NSAIDs products. Allergies Allergy/AdvReac Type Severity Reaction Status Date / Time No Known Allergies Allergy Unknown Verified 01/26/20 15:27 Home Medications Home Medications Medication Instructions Recorded Confirmed Type cimetidine 400 mg PO BID 01/26/20 01/26/20 History colestipol 1 g PO BID 01/26/20 01/26/20 History digoxin 0.125 mcg PO DAILY 01/26/20 01/26/20 History diltiazem HCl 240 mg PO DAILY 01/26/20 01/26/20 History glimepiride 2 mg DAILY 01/26/20 01/26/20 History lisinopril 5 mg PO DAILY 01/26/20 01/26/20 History loperamide [Imodium A-D] 2 mg PO BID 01/26/20 01/26/20 History warfarin 2.5 mg PO [id number] 01/26/20 01/26/20 History warfarin 5 mg PO WK 01/26/20 01/26/20 History Patient History Medical History Atrial fibrillation (Chronic) Diabetes mellitus, type II (Chronic) Diarrhea due to malabsorption Dyslipidemia (Chronic) GERD (gastroesophageal reflux disease) (Chronic) HTN (hypertension) Pancreatic cancer (Resolved) Venous insufficiency (Chronic) Surgical History H/O cataract removal with insertion of prosthetic lens (Resolved) H/O total hip arthroplasty (Resolved) History of pancreatectomy (Resolved) "with subtotal duodenectomy performed by Dr. 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 [employer] Other Information That Helps Us Care for You: No Feels Safe at Home: Yes Safety Concerns: Feels Safe At This Time Smoking Status: Never smoker Do You Dip or Chew Tobacco: No ; Second Hand Exposure: No ; Tobacco Cessation Education Requested by Patient: No Hx Alcohol Use: No Hx Substance Use: No Review of Systems Review of Systems: All systems reviewed & are unremarkable except as noted in HPI & below Physical Exam Constitutional: WD/WN, vitals as above well groomed, cooperative and comfortable Eyes: PERRL, conjunctivae normal, anicteric sclerae ENMT: external ear and nose normal, oropharynx normal Respiratory: normal respiratory effort, lungs clear to auscultation Cardiovascular: RRR, no murmur, no edema Gastrointestinal (Abdomen): Percussion/Palpation: + abdomen tender (epigastric ) Skin: no rashes, warm and dry no jaundice Neurologic: Motor/Sensory: no asterixis Psychiatric: A+Ox3, euthymic affect Lymphatic: no lymphedema Results & Data ([facility]) Vital Signs (Past 12 Hours) Vital Signs Temp Pulse Resp BP Pulse Ox 01/27/20 06:30 83 23 95 01/27/20 06:19 86 20 123/59 L 94 01/27/20 06:00 75 19 97 01/27/20 05:30 78 18 96 01/27/20 05:19 83 19 116/56 L 95 01/27/20 05:00 95 H 17 93 01/27/20 04:00 82 16 95 01/27/20 03:30 80 23 94 01/27/20 03:19 80 20 122/56 L 95 01/27/20 03:00 76 21 93 01/27/20 02:30 77 24 94 01/27/20 02:18 80 14 123/61 94 01/27/20 02:00 36.6 C 82 21 97 01/27/20 01:30 66 17 97 01/27/20 01:18 70 19 109/57 L 94 01/27/20 01:00 69 20 96 01/27/20 00:30 60 20 96 01/27/20 00:19 61 16 114/37 L 97 01/27/20 00:00 36.7 C 59 L 21 96 01/26/20 23:30 62 19 98 01/26/20 23:19 70 17 123/55 L 97 01/26/20 23:00 76 20 95 01/26/20 22:00 36.7 C 65 18 123/63 01/26/20 21:00 36.7 C 80 16 99 01/26/20 20:47 69 18 132/58 L 97
[2020-01-27] MEDS ORDERED: dilTIAZem HCL 240 MG CAPCR PO SCH (09:00)
[2020-01-27 09:05] LABS: Hematocrit (blood only) 23.3 % (42-52)
[2020-01-27] MEDS: INSULIN ASPART 100 UNITS/ML 3 ML PEN SC SCH ×3 (09:47→16:49)
--- NOTE | 2020-01-27 10:08 | Anesthesiology Consultation ---
Date of Service January 27, 2020 Assessment & Plan Chart Review Chart Review: Acceptable Risk for Surgery Consults Requested none ASA ASA3 Proposed Anesthesia Anesthesia Type: MAC Risk / Benefits Reviewed With: PT / POA / Parent / Guardian, Accepts Plan and Informed Consent Obtained History Surgery Operation Date: 01/27/20 10:00 Proposed Procedures p Esophagogastroduodenoscopy Dr Sebastian Cortes Height/Weight Height: 5 ft 8 in Weight: 83 kg Allergies Allergy/AdvReac Type Severity Reaction Status Date / Time No Known Allergies Allergy Unknown Verified 01/26/20 15:27 Medications Home Medications Medication Instructions Recorded Confirmed Last Taken cimetidine 400 mg PO BID 01/26/20 01/26/20 01/26/20 07:00 colestipol 1 g PO BID 01/26/20 01/26/20 01/26/20 07:00 digoxin 0.125 mcg PO DAILY 01/26/20 01/26/20 01/26/20 07:00 diltiazem HCl 240 mg PO DAILY 01/26/20 01/26/20 01/26/20 07:00 glimepiride 2 mg DAILY 01/26/20 01/26/20 01/26/20 07:00 lisinopril 5 mg PO DAILY 01/26/20 01/26/20 Unknown loperamide [Imodium A-D] 2 mg PO BID 01/26/20 01/26/20 01/26/20 07:00 warfarin 2.5 mg PO 6XWK 01/26/20 01/26/20 01/25/20 07:00 warfarin 5 mg PO WK 01/26/20 01/26/20 01/19/20 Active Medications Generic Name Dose Route Start Last Admin Trade Name Freq PRN Reason Stop Dose Admin Colestipol HCl 1 gm 01/26/20 22:00 01/26/20 21:03 Colestid PO 02/25/20 21:59 1 gm BID@1000,2200 BIGG Administration Diltiazem HCl 240 mg 01/27/20 09:00 01/27/20 07:30 Cardizem Cd PO 02/26/20 08:59 240 mg DAILY BIGG Administration Pantoprazole Sodium 40 mg/ 100 mls @ 20 mls/hr 01/26/20 15:45 01/27/20 07:26 Dextrose IV 02/25/20 15:44 20 mls/hr Q5H BIGG Administration Piperacillin Sod/Tazobactam 115 mls @ 28.75 mls/hr 01/27/20 02:00 01/27/20 05:56 Sod 3.375 gm/ Dextrose IV 02/06/20 01:59 Infused Q8H BIGG Infusion Protocol Insulin Aspart 0 units 01/26/20 21:00 01/27/20 09:47 Novolog Flexpen SC 02/25/20 20:59 Not Given ACHS BIGG Insulin Glargine 5 units 01/26/20 21:00 01/26/20 21:01 Lantus Solostar Pen SC 02/25/20 20:59 5 units HS BIGG Administration NPO Date Last Intake of Fluids: 01/27/20 Time Last Intake of Fluids: 07:00 Last Intake of Fluids Comment: Sip Date Last Intake of Solids: 01/26/20 Time Last Intake of Solids: 12:00 Past Medical History Medical History Atrial fibrillation (Chronic) Diabetes mellitus, type II (Chronic) Diarrhea due to malabsorption Dyslipidemia (Chronic) GERD (gastroesophageal reflux disease) (Chronic) HTN (hypertension) Pancreatic cancer (Resolved) Venous insufficiency (Chronic) fbg=97 Exercise / Class Metabolic Activity II 4-5 Yardwork/Stairs/Walk up hill Past Family History Family History Grandfather (Paternal) Pancreatic cancer Mother , 77 Lung cancer Diabetes Brother Diabetes Father Atrial fibrillation Past Surgical History Surgical History H/O cataract removal with insertion of prosthetic lens (Resolved) H/O total hip arthroplasty (Resolved) History of pancreatectomy (Resolved) "with subtotal duodenectomy performed by Dr. Rudd 03/2010" History of tonsillectomy and adenoidectomy (Resolved) Past Anesthesia History No Hx of Anesthesia Complications and No Family Hx of Anesthesia Complications History of PONV No Hx of PONV and No Hx of Motion Sickness Social History Smoking Status: Never smoker Do You Dip or Chew Tobacco: No Hx Alcohol Use: No Hx Substance Use: No substance use type: does not use Physical Exam Vital Signs Last Vital Signs Temp 36.6 C 01/27/20 02:00 Pulse 83 01/27/20 06:30 Resp 23 01/27/20 06:30 BP 123/59 L 01/27/20 06:19 Pulse Ox 95 01/27/20 06:30 ENMT Mouth: no TMJ abnormality Thyromental Distance: > or= 3.5 Finger Breadths Mallampati Class: II Neck normal visual inspection and trachea midline; neck extension not limited Respiratory normal respiratory effort Auscultation: lungs clear to auscultation bilaterally Cardiovascular Rate/Rhythm: regular rate and regular rhythm Heart Sounds: no murmur Musculoskeletal Spine: normal cervical ROM Extremities: full ROM of extremities Neurologic moves all extremities Psychiatric Orientation: alert and oriented x 3 Testing Laboratory Results 01/27/20 08:51 01/27/20 03:06 PT 15.1 Seconds (9.0-12.0) H 01/27/20 03:06 INR 1.5 (0.9-1.1) H 01/27/20 03:06 APTT 32.9 Seconds (21.0-31.0) H 01/26/20 15:23 Hemoglobin A1c 5.8 % (4.5-5.6) H 01/27/20 03:06 Blood Type B Positive 01/26/20 15:23 Antibody Screen NEGATIVE 01/26/20 15:23 01/27/20 07:33 POC Glucose 97
[2020-01-27 10:16] VITALS: TEMP 98.1
[2020-01-27] MEDS ORDERED: PROPOFOL IV EMULSION 10 MG/ML 20 ML VIAL IV ONE (10:50)
[2020-01-27] MEDS ORDERED: LIDOCAINE HCL 2% 2 ML VIAL/AMP(20MG/ML) INFIL ONE (10:50)
--- NOTE | 2020-01-27 10:58 | Anesthesiology Progress Note ---
Date of Service January 27, 2020 Anesthesia Post Procedure Vital Signs Vital Signs: Temp Pulse Pulse Pulse Resp BP BP 01/27/20 10:52 77 19 90/60 L 01/27/20 09:57 36.7 C 92 H 19 123/68 01/27/20 06:30 83 23 01/27/20 06:19 86 20 123/59 L 01/27/20 06:00 75 19 01/27/20 05:30 78 18 01/27/20 05:19 83 19 116/56 L 01/27/20 05:00 95 H 17 01/27/20 04:00 82 16 01/27/20 03:30 80 23 01/27/20 03:19 80 20 122/56 L 01/27/20 03:00 76 21 01/27/20 02:30 77 24 01/27/20 02:18 80 14 123/61 01/27/20 02:00 36.6 C 82 21 01/27/20 01:30 66 17 01/27/20 01:18 70 19 109/57 L 01/27/20 01:00 69 20 01/27/20 00:30 60 20 01/27/20 00:19 61 16 114/37 L 01/27/20 00:00 36.7 C 59 L 21 01/26/20 23:30 62 19 01/26/20 23:19 70 17 123/55 L 01/26/20 23:00 76 20 01/26/20 22:00 36.7 C 65 18 123/63 01/26/20 21:00 36.7 C 80 16 01/26/20 20:47 69 18 132/58 L 01/26/20 20:30 79 15 01/26/20 20:17 69 17 126/62 01/26/20 20:00 36.7 C 70 21 128/66 01/26/20 19:47 36.7 C 70 21 128/66 01/26/20 19:30 147 H 20 01/26/20 19:28 36.7 C 91 H 18 127/74 01/26/20 19:15 36.7 C 74 18 128/66 01/26/20 18:42 36.7 C 71 24 116/50 L 01/26/20 18:27 36.7 C 84 24 132/54 L 01/26/20 18:07 36.5 C 69 21 105/50 L 01/26/20 18:06 71 19 105/50 L 01/26/20 17:30 73 20 127/62 01/26/20 17:25 80 20 136/58 L 01/26/20 17:00 80 20 116/58 L 01/26/20 16:36 78 22 128/59 L 01/26/20 15:32 01/26/20 14:40 36.7 C 88 16 125/59 L Pulse Ox 01/27/20 10:52 99 01/27/20 09:57 96 01/27/20 06:30 95 01/27/20 06:19 94 01/27/20 06:00 97 01/27/20 05:30 96 01/27/20 05:19 95 01/27/20 05:00 93 01/27/20 04:00 95 01/27/20 03:30 94 01/27/20 03:19 95 01/27/20 03:00 93 01/27/20 02:30 94 01/27/20 02:18 94 01/27/20 02:00 97 01/27/20 01:30 97 01/27/20 01:18 94 01/27/20 01:00 96 01/27/20 00:30 96 01/27/20 00:19 97 01/27/20 00:00 96 01/26/20 23:30 98 01/26/20 23:19 97 01/26/20 23:00 95 01/26/20 22:00 01/26/20 21:00 99 01/26/20 20:47 97 01/26/20 20:30 100 01/26/20 20:17 98 01/26/20 20:00 99 01/26/20 19:47 99 01/26/20 19:30 98 01/26/20 19:28 100 01/26/20 19:15 99 01/26/20 18:42 98 01/26/20 18:27 98 01/26/20 18:07 99 01/26/20 18:06 99 01/26/20 17:30 98 01/26/20 17:25 100 01/26/20 17:00 97 01/26/20 16:36 99 01/26/20 15:32 97 01/26/20 14:40 97 Transfer of Care Handoff Completed per policy Notes Mental Status: alert / awake / arousable Patient Amnestic to Procedure: Yes Nausea / Vomiting: adequately controlled Pain: adequately controlled Airway Patency, RR, SpO2: stable & adequate BP & HR: stable & adequate Hydration State: stable & adequate Anesthetic Complications: no major complications apparent and Pt Satisfied with anesthetic care
--- NOTE | 2020-01-27 11:37 | GI REPORT ---
Patient Name: Sánchez Espinal Procedure Date: 01/27/2020 9:50 AM Date of : 1940 Admit Type: Inpatient Age: 79 Gender: Male Attending MD: Andriy Cortes MD Procedure: Upper GI endoscopy Providers: Andriy Cortes MD Referring MD: Car Miguel Do Indications: Hematochezia, Melena Medicines: Monitored Anesthesia Care Complications: No immediate complications. Estimated blood loss: None. Estimated Blood Loss: Estimated blood loss: none. Procedure: Pre-Anesthesia Assessment: - Pre-Anesthesia Assessment: - Prior to the procedure, a History and Physical was performed, and patient medications, allergies and sensitivities were reviewed. The patient's tolerance of previous anesthesia was reviewed. Please see [employer] for complete details. - The risks and benefits of the procedure and the sedation options and risks were discussed with the patient. All questions were answered and informed consent was obtained. - Patient identification and proposed procedure were verified prior to the procedure by the physician and the nurse. The procedure was verified in the pre-procedure area in the procedure room. After obtaining informed consent, the endoscope was passed carefully and meticuously under direct vision and only advanced when the lumen was clearly identified, C02 insuflation was utilized throughout the entirity of the procedure. Throughout the procedure, the patient's blood pressure, pulse, and oxygen saturations were monitored continuously. After obtaining informed consent, the endoscope was passed under direct vision. Throughout the procedure, the patient's blood pressure, pulse, and oxygen saturations were monitored continuously. The Endoscope was introduced through the mouth, and advanced to the jejunum. The upper GI endoscopy was accomplished without difficulty. The patient tolerated the procedure well. Findings: The examined esophagus was normal. 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 This was characterized by ulceration on the small bowel side. Non bleeding, however, there was a large clot or more concerning of a large visible vessel on the distal margin of the anastomosis of the small bowel. It was in an angulated semi-unstable position, given lack of IR and surgical support, definitive intervention was not performed. No Active Bleeding identified, but source confirmed. Impression: - Normal esophagus. 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 - No specimens collected. Recommendation: - Transfer patient to [facility] for possible over the scope clip and or IR intervention. - Continue NPO - Continue IV PPI gtt - Case discussed with GI attending continuous improvement engineer [place] [facility] [place] agreed with plan. Andriy Cortes MD 01/27/2020 11:37:39 AM This report has been signed electronically. Note Initiated On: 01/27/2020 9:50 AM Number of Addenda: 0 I attest to the content of the Intraoperative Record and orders documented therein, exceptions below {[id number]}
[2020-01-27] MEDS: COLESTIPOL HCL 1 GM TAB PO SCH (11:41)
--- NOTE | 2020-01-27 12:28 | Discharge Summary ---
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 He states approximately a week and a half ago he ran out of his ranitidine and was unable to get it refilled secondary to it coming off the market. He noticed approximately a week ago he started developing epigastric discomfort that would come and go. Meals would make it worse. Pain was nonradiating, described as an ache, wax and wane, improved with time and over the past 4 to 5 days has been associated with black tarry stool. What alarmed him this morning was when he had a bowel movement and also noticed bright red blood. He called into his PCP who recommended he go to the ED for further evaluation. He further admits to being lightheaded, dizzy but no overt syncope, dyspnea on exertion and overall weak. He does have chronic diarrhea ever since having the procedure and takes colestipol 1 g twice a day for this. He does not feel his diarrhea is any worse as he usually has 3 BMs a day; however, he has had 4 already today. 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 He denies any fever, chills, sweats, syncope, chest pain, palpitations, shortness with at rest, cough, hemoptysis, nausea, vomiting, dysuria, increased urgency or frequency with urination. He denies any weight loss. His appetite is overall been decreased. He denies any exposure to known COVID-19 contacts, denies loss of taste or smell and has not traveled out of the [facility] in the past 14 days. In ED he remained hemodynamically stable. Lab work notable for H&H 8.0 and 24.4, WBC 7.48, platelet 164, INR 2.4, BUN 28, creatinine 1.3, glucose 216, chest x-ray no acute abnormality. CT scan abdomen pelvis concerning for nonspecific enteritis. He was initiated on PPI bolus and drip, given 5 mg IV vitamin K and type and cross for transfusion. Admission Exam Per Admitting Provider Constitutional: WD/WN, pale, male, vitals as above, NAD, sitting up in bed, pleasant, conversing easily Head: Normocephalic, Atraumatic Eyes: PERRL, conjunctivae normal, anicteric sclerae ENMT: external ear and nose normal, oropharynx normal Neck: trachea midline, no thyromegaly normal visual inspection Respiratory: normal respiratory effort, lungs clear to auscultation, no wheeze, rales, rhonchi. Normal insp/exp effort, no accessory muscle use Cardiovascular: IRR/IRR, no murmur, trace pretibial edema, bilateral venous insufficiency changes regarding the left, bilateral pedal pulse +1 and equal Vessels: no JVD or carotid bruit Chest: normal inspection of chest Abdomen: normal bowel sounds, soft, tender to palpation in epigastrium, no rebound, no guarding, no rigidity, no hepatosplenomegaly Musculoskeletal: no cyanosis or clubbing, extremities motor strength 5/5 Skin: no rashes, warm and dry normal turgor Neurologic: PERRL, EOMI, accommodation nl, no face palsy, no dysarthria CN's II-XI intact bilaterally and moves all extremities Psychiatric: A+Ox3, euthymic affect Lymphatic: no cervical or axillary lymphadenopathy : deferred Principal Diagnosis UGIB-Melena and BRBPR Hx Pancreatic CA/Whipple HTN DM II HLD GERD AFIB Chronic Anticoagulation Discharge Exam Physical Exam Gen-AAO x 3, NAD, Afebrile Head-NCAT, EOMI, PERRLA, Anicteric Sclera, No Posterior Pharyngeal Erythema Neck-Supple, No JVD, No Thyromegaly, No Masses, No LAD, No Bruits Lungs-Clear to Auscultation Bilaterally, No Rales, No Rhonchi, No Wheezing, No Crepitus Chest-No S4, +S1, +S2, No S3, No Murmurs, No Rubs, No Gallops, No Ectopy Abdomen-Soft, Bowel Sounds Present, Non Tender, Non Distended, No Hepatomegaly, No Splenomegaly, No Palpable Masses, No Rebound, No Rigidity, No Guarding Musculoskeletal-Full Range of Motion Bilaterally, No CVAT Extremities-No Cyanosis, No Clubbing, No Edema Nuero-Cranial Nerves II-XII grossly intact, Motor WNL, DTRs WNL, Strength WNL, Non Focal Psych-Normal Mood Discharge Data Allergies Allergy/AdvReac Type Severity Reaction Status Date / Time No Known Allergies Allergy Unknown Verified 01/26/20 15:27 Consultations 01/26/20 16:20 ED Decision to Admit Stat 01/26/20 19:28 Consult Case Management - Discharge Planning Routine Consult Gastroenterology Routine Procedures Performed Operation Date: 01/27/20 10:00 Actual Procedures p Esophagogastroduodenoscopy - Andriy Cortes-Impression: - Normal esophagus. 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 - No specimens collected. Recommendation: - Transfer patient to [facility] for possible over the scope clip and or IR intervention. - Continue NPO - Continue IV PPI gtt - Case discussed with GI attending Dr Iyer hyperion analyst at [facility] [place] who agreed with plan. Ordered Studies 01/26/20 15:20 CT abd pelvis IV con only Stat Current Diagnoses Acute posthemorrhagic anemia (01/26/20) Type 2 diabetes mellitus without complications (01/26/20) Essential (primary) hypertension (01/26/20) Unspecified atrial fibrillation (01/26/20) Noninfective gastroenteritis and colitis, unspecified (01/26/20) Hemorrhage of anus and rectum (01/26/20) Melena (01/26/20) Gastrointestinal hemorrhage, unspecified (01/26/20) Acute kidney failure, unspecified (01/26/20) Encounter for prophylactic measures, unspecified (01/26/20) Personal history of malignant neoplasm of pancreas (01/26/20) Allergies No Known Allergies Allergy (Unknown, Verified 01/26/20 15:27) Height/Weight/Isolation Height 5 ft 8 in Weight 83 kg Chemistry 01/26/20 01/27/20 15:23 03:06 Sodium 137 141 Potassium 4.6 4.2 Chloride 108 H 111 H Carbon Dioxide 22 23 Anion Gap 8.0 7.0 BUN 28 H 22 H Creatinine 1.38 1.13 Glucose 219 H 88 Hospital Course (1) GIB (gastrointestinal bleeding): (2) Acute blood loss anemia: This is a 79-year-old male who has significant past medical history of pancreatic cancer status post Whipple procedure, PAF anticoagulated on warfarin, HTN, HLD, T2DM, 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 In ED he remained hemodynamically stable. Lab work notable for H&H 8.0 and 24.4, WBC 7.48, platelet 164, INR 2.4, BUN 28, creatinine 1.3, glucose 216, chest x-ray no acute abnormality. CT scan abdomen pelvis concerning for nonspecific enteritis. He was initiated on PPI bolus and drip, given 5 mg IV vitamin K and type and cross for transfusion. PCU Continue PPI gtt Transfuse 1 unit prbc H&H q6h , transfuse hgb < 8.0 GI Scoped-See above NPO IV Zosyn due to concern for enteritis Transfer to [facility] for IR or clip over Ulcer (3) Enteritis: CT scan abd/pelvis: Mild nonspecific generalized enteritis. afebrile, wbc WNL, but pt with bloody diarrhea and melena Chronic diarrhea due to hx of whipple procedure due to pancreatic ca in 2009 on colestipol (4) FRANKO (acute kidney injury): baseline cr 1.0 likely in setting of hypovolemia and GIB hold lisinopril, Transfuse monitor renal fxn, avoid nephrotoxic agents (5) Diabetes mellitus, type II: Last A1c 6.3 09/2019 Repeat A1c in a.m. Glimepiride BSG 219 in ED Lantus/NovoLog per protocol (6) Atrial fibrillation: Chronic Afib, [id number] 3 rate controlled with diltiazem, digoxin and on warfarin for halfway anticoagulation Hold warfarin, IV Vit K given (7) History of pancreatic cancer: hx of pancreatic ca s/p whipple procedure in 2009 (8) HTN (hypertension): continue diltiazem hold lisinopril in setting of GIB bleed and hypovolemia (9) DVT prophylaxis: SCD/TEDS Disposition: Transfer To [facility] Follow up: PCP Dr. Grant upon discharge Total Time Total Time Spent Total Time Spent (In Minutes): 60 mins Total Time Includes: Examination of the Patient, Discharge Planning, Medication Reconciliation and Communication With Other Providers Discharge Plan Discharge Items Patient Disposition: Transfer Acute Care Hospital Reason For Visit: GIB Discharge Diagnosis: UGIB-Melena and BRBPR Hx Pancreatic CA/Whipple HTN DM II HLD GERD AFIB Chronic Anticoagulation Condition on Discharge: Serious Health Concerns: bleeding Activity: Per Instructions section Activity Comment: bedrest Lifting: None Bathing: No limitations Sexual Activity: Wait until after follow-up appointment Exercise/Sports: None Driving/Machine Use: none Weightbearing: Full weightbearing Non-emergency contact: [employer] Call non-emergency contact if: you have any medication questions Follow-up/Referrals: Jordan Grant MD [Primary Care Provider] - Diet: Clear liquid Addtl Attending Provider Instructions: npo Pending Studies at Discharge: No Stand-Alone Forms: [facility] [employer] Skilled Items Patient informed of condition?: Yes DNR: No Discharge Level of Care: Other Communicable Disease: No Discharge Prognosis: Stable Lines: Peripheral IV Urinary Catheter: No Medications and DC Order Prescriptions: New acetaminophen [Mapap (acetaminophen)] 325 mg Tablet 650 mg PO Q4H PRN (Reason: fever or pain) Qty: 6 RF: 0 Continued diltiazem HCl 240 mg capsule,extended release 24hr 240 mg PO DAILY RF: 0 digoxin 125 mcg (0.125 mg) tablet 0.125 mcg PO DAILY RF: 0 colestipol 1 gram tablet 1 g PO BID RF: 0 Discontinued cimetidine 400 mg tablet 400 mg PO BID RF: 0 glimepiride 2 mg tablet 2 mg DAILY RF: 0 warfarin 5 mg tablet 5 mg PO WK RF: 0 warfarin 5 mg tablet 2.5 mg PO 6XWK RF: 0 loperamide [Imodium A-D] 2 mg Tablet 2 mg PO BID RF: 0 lisinopril 5 mg tablet 5 mg PO DAILY RF: 0 Discharge Orders: Discharge Order (Routine); Ordered 01/27/20 Ordered By: Car Miguel Admission Data Admit Date/Time: 01/26/20 16:33 Attending Provider: Car Miguel Admit Provider: Car Miguel Primary Care Provider: Jordan Grant Other Providers: Car Miguel ; Andriy Cortes
[2020-01-27 15:18] LABS: Hematocrit (blood only) 25.2 % (42-52); Hemoglobin 8.5 g/dL (14.0-18.0)
[2020-01-27] MEDS ORDERED: DIGOXIN 0.125 MG TAB PO SCH (16:00)
[2020-01-27 18:56] VITALS: BP 120/63; PULSE 75; O2SAT 96
== END 2020-01-27 19:30 | disposition short-term general hospital (02) | DRG 379 ==
LOC: ED 14:38 → 1E 16:33

== ENCOUNTER 2021-02-15 03:13 | Observation (INO) ==
[2021-02-15] MEDS ORDERED: SODIUM CHLORIDE 0.9% 1000ML 500 ML IV ONE (03:32)
[2021-02-15] MEDS ORDERED: ONDANSETRON INJ 2 MG/ML 2 ML VIAL IV STA (03:32)
--- NOTE | 2021-02-15 03:40 | Emergency Department Note ---
Impression & Plan Acute weakness, Acute dehydration, Elevated troponin ED Provider Note Name: DOMENIC GUEVARA Age: 80 Sex: M Arrives Via: Walk-In Informant: Patient, ED Provider: Paresh Marte MD Chief Complaint: Weakness Impression: Acute Weakness Acute Dehydration Elevated Troponin Medical Decision Makin yr old male with history afib, chf, ckd, gib, htn, dmii, gerd, amongst others arrives with worsening weakness, fatigue, falling and illness. He is dehydrated on exam and given 500ml IV fluids with improvement in symptoms. Labs with mild renal insufficiency and mildly bumped troponin. CBC with no significant anemia though thrombocytopenia has worsened from baseline. CT head and cxr clear. EKG with Afib. Dig level is low but hr is well controlled. Given weakness, elevated trop and general findings of this patient felt hospitalist evaluation warranted. I do not feel there is clear evidence of sepsis at this time, nor acute stroke requiring emergent MRI> Prior Medical Record and Triage/Nursing Notes reviewed by Me Additional history obtained from chart Differentials:Infection, dehydration, metabolic abnormality, hypo/hyperglycemia, electrolyte disturbance, anemia, hypoxia, cardiac sources, intracerebral event, toxicologic, neurologic, as well as other pathologies. Vital Signs: reviewed and remarkable for no significant abnormalities Interventions: Saline lock, nss bolus 500ml IV, Zofran 4mg IV Labs:Reviewed and remarkable for no significant abnormalities Imaging:X ray results are stated below per my interpretation: Chest: 1 view: No infiltrate, no effusion, normal cardiac border. [facility] Radiologist interpretation reviewed by me: ct head no acute findings, old findings noted EKG:Per My Interpretation: Indication Weakness: Afib 84 bpm, qtc 399 with PVCs, no Ischemia. Compared to EKG 01/26/20, no significant changes though baseline today much improved. Cardiac/Tele Monitoring: Cardiac Monitoring: An Order was placed for continuous cardiac monitoring. The monitor shows a rate of 80 with a afib rhythm. Consults:Dr Mart Acuna Hospitalist Plan: Disposition:Hospitalization. Condition: Good History of Present Illness:80 yr old male arrives for evaluation of generalized weakness. Patient notes that he has been unwell for the last decade though the last few months has been weak. His Spe[place] Fisher started him on lasix for heart failure and increased the dose to 80mg daily a few months ago. States that he has rapidly worsened since then. The last 2 days he has been very unsteady, weak, nauseous and stumbling. Admits striking his head on something a few days ago though cant remember what nor when. Notes nausea without vomiting. States he is getting to point he is too weak to walk. He has had increased loose stools recently. He always has frequent urination. Urine is dark. Denies cp, sob, headache, neck pain, vision changes, focal deficits, abdominal pain, back pain, urinary burning, leg swelling, calf pain, rashes, fevers nor other symptoms. No change in medications the last few days. Notes he hasn't been eating well either. Exertion makes worse, rest makes better. He is on coumadin and digoxin for his afib. ROS: See above HPI for pertinent positives & negatives. A total of 10 systems reviewed and were otherwise negative. Past Medical History:GERD, GI Bleed, CKD, Pancreatic Cancer, HLD, Afib, DMII, HTN Past Surgical History:Whipple Family History:See Below Social History:See Below Home Medications:See Below Allergies:NKDA Vitals:Blood Pressure: 94/56, Pulse 75, RR 20, T 36.6C, O2 97% on RA Physical Exam: GENERAL: Patient is chronically unwell appearing and in mild distress. Dehydrated appearing HEAD: Abrasion to left forehead EYES: No scleral icterus, unremarkable pupils. ENT: Mucous membranes dry, no nasal congestion. NECK: No masses appreciated, nomeningismus, trachea is midline. RESPIRATORY: No dyspnea. Clear to auscultation and equal bilaterally. No wheeze, no rhonchi. CARDIOVASCULAR: Irregular.No murmurs, rubs, gallops appreciated. GASTROINTESTINAL: Abdomen soft, non-tender, no peritonitis.Bowel sounds positive.No masses appreciated. BACK: No midline tenderness, no CVA tenderness EXTREMITIES: Normal motion all extremities, no cyanosis, no edema. NEUROLOGIC: Alert and oriented, no acute motor or sensory deficits, no focal weakness, cranial nerves grossly intact. SKIN: Bruising varying ages over arms. No rash, no jaundice, no diaphoresis. PSYCH: Anxious, sad GCS: 15 ED Course: Times/Reassessments: stable, feeling better with IV fluids though still weak on examination Paresh Marte MD Past Med/Surg History Medical History (Updated 02/15/21 @ 06:40 by Gallo Cevallos MD) Atrial fibrillation Diabetes mellitus, type II Diarrhea due to malabsorption Dyslipidemia GERD (gastroesophageal reflux disease) HTN (hypertension) Pancreatic cancer Venous insufficiency Surgical History H/O cataract removal with insertion of prosthetic lens H/O total hip arthroplasty History of pancreatectomy "with subtotal duodenectomy performed by Dr. 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5 mg PO 6XWK 01/26/20 01/26/20 warfarin 5 mg PO WK 01/26/20 01/26/20 Previous Rx's Medication Instructions Recorded acetaminophen [Mapap 650 mg PO Q4H PRN #6 tab 01/27/20 (acetaminophen)] Results & Data (ED) Vital Signs Vital Signs - 24 hr 02/15/21 03:17 02/15/21 03:48 02/15/21 04:40 Temperature 36.6 C Temperature Source Temporal Artery Scan Pulse Rate 75 Pulse Rate [Bilateral Apical] 85 83 Pulse Rhythm Regular Pulse Strength Normal Respiratory Rate 20 20 20 Respiratory Effort / Characteristics Non-Labored Spontaneous Respiratory Depth Normal Respiratory Pattern Regular Blood Pressure 94/56 L Blood Pressure [Left Arm] 128/68 114/62 Blood Pressure Mean 68 Blood Pressure Mean [Left Arm] 88 79 Blood Pressure Position Sitting Blood Pressure Position [Left Arm] Lying Pulse Oximetry 97 99 97 Oxygen Delivery Method Room Air Room Air Room Air Sepsis Recent Fever Within 48 Hours No Sepsis New/Unexplained Change in Mental Status N/A Sepsis Action Taken by Nursing No Action Required 02/15/21 05:31 02/15/21 06:29 Temperature Temperature Source Pulse Rate Pulse Rate [Bilateral Apical] 78 76 Pulse Rhythm Pulse Strength Respiratory Rate 18 20 Respiratory Effort / Characteristics Respiratory Depth Respiratory Pattern Blood Pressure Blood Pressure [Left Arm] 107/90 116/60 Blood Pressure Mean Blood Pressure Mean [Left Arm] 95 78 Blood Pressure Position Blood Pressure Position [Left Arm] Pulse Oximetry 98 96 Oxygen Delivery Method Room Air Room Air Sepsis Recent Fever Within 48 Hours Sepsis New/Unexplained Change in Mental Status Sepsis Action Taken by Nursing Laboratory Data Result diagrams: 02/15/21 04:34 02/15/21 03:34 Lab Results 02/15/21 02/15/21 02/15/21 Range/Units 03:33 03:34 03:34 WBC (4.8-10.8) K/uL RBC (4.7-6.1) M/uL Hgb (14.0-18.0) g/dL Hct (42-52) % MCV (80-100) fL MCH (25-34) pg MCHC (32-36) g/dL RDW Std Deviation (36.4-46.3) fL RDW Coeff of Aleks (11.5-14.5) % Plt Count (130-400) K/uL MPV (7.4-10.4) fL Immature Gran % (Auto) % Neut % (Auto) % Lymph % (Auto) % Conway % (Auto) % Eos % (Auto) % Baso % (Auto) % Neut # (Auto) (1.4-6.5) K/uL Lymph # (Auto) (1.2-3.4) K/uL Conway # (Auto) (0.11-0.59) K/uL Eos # (Auto) (0-0.5) K/uL Baso # (Auto) (0-0.2) K/uL Immature Gran # (Auto) (0.00-0.02) K/uL Platelet Estimate (Normal) RBC Morphology PT 15.4 H (9.0-12.0) Seconds INR 1.6 H (0.9-1.1) APTT 38.0 H (21.0-31.0) Seconds PTT Ratio 1.4 Sodium 129 L (136-145) mmol/L Potassium 3.9 (3.5-5.1) mmol/L Chloride 95 L (98-107) mmol/L Carbon Dioxide 29 (21-32) mmol/L Anion Gap 5.0 (3-11) BUN 16 (7-18) mg/dl Creatinine 1.41 H (0.6-1.4) mg/dl Est Cr Clr Drug Dosing 43.2 ml/min Est GFR ( Amer) 54.9 ml/min Est GFR (Non-Af Amer) 47.4 ml/min BUN/Creatinine Ratio 11.5 (10-20) Glucose 90 (70-99) mg/dl Osmolality (280-300) mOsm/kg Calcium 7.7 L (8.5-10.1) mg/dl Magnesium 1.8 (1.8-2.4) mg/dl Total Bilirubin 1.1 H (0.2-1) mg/dl Direct Bilirubin 0.5 H (0-0.2) mg/dl AST 69 H (15-37) U/L ALT 41 (12-78) U/L Alkaline Phosphatase 134 H (45-117) U/L Troponin I 0.061 H* (0-0.045) ng/ml Total Protein 6.6 (6.4-8.2) gm/dl Albumin 2.4 L (3.4-5.0) gm/dl Lipase 52 L (73-393) U/L TSH 2.320 Cancelled (0.300-4.500) uIu/ml Urine Color Urine Appearance (Clear) Urine pH (4.5-7.5) Ur Specific Ulysses (1.000-1.030) Urine Protein (Negative) Urine Glucose (UA) (Negative) Urine Ketones (Negative) Urine Blood (Negative) Urine Nitrite (Negative) Urine Bilirubin (Negative) Urine Urobilinogen (Negative) Ur Leukocyte Esterase (Negative) Urine Osmolality (500-800) mOsm/kg Ur Random Sodium mmol/L Digoxin (0.8-2.0) ng/ml COVID-19 Eval Order SARS-CoV-2 (PCR) (Negative) 02/15/21 02/15/21 02/15/21 Range/Units 03:51 03:51 04:33 WBC (4.8-10.8) K/uL RBC (4.7-6.1) M/uL Hgb (14.0-18.0) g/dL Hct (42-52) % MCV (80-100) fL MCH (25-34) pg MCHC (32-36) g/dL RDW Std Deviation (36.4-46.3) fL RDW Coeff of Aleks (11.5-14.5) % Plt Count (130-400) K/uL MPV (7.4-10.4) fL Immature Gran % (Auto) % Neut % (Auto) % Lymph % (Auto) % Conway % (Auto) % Eos % (Auto) % Baso % (Auto) % Neut # (Auto) (1.4-6.5) K/uL Lymph # (Auto) (1.2-3.4) K/uL Conway # (Auto) (0.11-0.59) K/uL Eos # (Auto) (0-0.5) K/uL Baso # (Auto) (0-0.2) K/uL Immature Gran # (Auto) (0.00-0.02) K/uL Platelet Estimate (Normal) RBC Morphology PT (9.0-12.0) Seconds INR (0.9-1.1) APTT (21.0-31.0) Seconds PTT Ratio Sodium (136-145) mmol/L Potassium (3.5-5.1) mmol/L Chloride (98-107) mmol/L Carbon Dioxide (21-32) mmol/L Anion Gap (3-11) BUN (7-18) mg/dl Creatinine (0.6-1.4) mg/dl Est Cr Clr Drug Dosing ml/min Est GFR ( Amer) ml/min Est GFR (Non-Af Amer) ml/min BUN/Creatinine Ratio (10-20) Glucose (70-99) mg/dl Osmolality (280-300) mOsm/kg Calcium (8.5-10.1) mg/dl Magnesium (1.8-2.4) mg/dl Total Bilirubin (0.2-1) mg/dl Direct Bilirubin (0-0.2) mg/dl AST (15-37) U/L ALT (12-78) U/L Alkaline Phosphatase (45-117) U/L Troponin I (0-0.045) ng/ml Total Protein (6.4-8.2) gm/dl Albumin (3.4-5.0) gm/dl Lipase (73-393) U/L TSH (0.300-4.500) uIu/ml Urine Color Urine Appearance (Clear) Urine pH (4.5-7.5) Ur Specific Ulysses (1.000-1.030) Urine Protein (Negative) Urine Glucose (UA) (Negative) Urine Ketones (Negative) Urine Blood (Negative) Urine Nitrite (Negative) Urine Bilirubin (Negative) Urine Urobilinogen (Negative) Ur Leukocyte Esterase (Negative) Urine Osmolality (500-800) mOsm/kg Ur Random Sodium mmol/L Digoxin 0.7 L (0.8-2.0) ng/ml COVID-19 Eval Order Covid19 at [facility] SARS-CoV-2 (PCR) NEGATIVE (Negative) 02/15/21 02/15/21 02/15/21 Range/Units 04:33 04:34 05:08 WBC 6.22 (4.8-10.8) K/uL RBC 3.86 L (4.7-6.1) M/uL Hgb 10.5 L (14.0-18.0) g/dL Hct 30.4 L (42-52) % MCV 78.8 L (80-100) fL MCH 27.2 (25-34) pg MCHC 34.5 (32-36) g/dL RDW Std Deviation 43.7 (36.4-46.3) fL RDW Coeff of Aleks 15.2 H (11.5-14.5) % Plt Count 87 L (130-400) K/uL MPV 10.4 (7.4-10.4) fL Immature Gran % (Auto) 0.2 % Neut % (Auto) 75.3 % Lymph % (Auto) 14.8 % Conway % (Auto) 9.5 % Eos % (Auto) 0.0 % Baso % (Auto) 0.2 % Neut # (Auto) 4.69 (1.4-6.5) K/uL Lymph # (Auto) 0.92 L (1.2-3.4) K/uL Conway # (Auto) 0.59 (0.11-0.59) K/uL Eos # (Auto) 0.00 (0-0.5) K/uL Baso # (Auto) 0.01 (0-0.2) K/uL Immature Gran # (Auto) 0.01 (0.00-0.02) K/uL Platelet Estimate Decreased L (Normal) RBC Morphology Unremarkable PT (9.0-12.0) Seconds INR (0.9-1.1) APTT (21.0-31.0) Seconds PTT Ratio Sodium (136-145) mmol/L Potassium (3.5-5.1) mmol/L Chloride (98-107) mmol/L Carbon Dioxide (21-32) mmol/L Anion Gap (3-11) BUN (7-18) mg/dl Creatinine (0.6-1.4) mg/dl Est Cr Clr Drug Dosing ml/min Est GFR ( Amer) ml/min Est GFR (Non-Af Amer) ml/min BUN/Creatinine Ratio (10-20) Glucose (70-99) mg/dl Osmolality 263 L (280-300) mOsm/kg Calcium (8.5-10.1) mg/dl Magnesium (1.8-2.4) mg/dl Total Bilirubin (0.2-1) mg/dl Direct Bilirubin (0-0.2) mg/dl AST (15-37) U/L ALT (12-78) U/L Alkaline Phosphatase (45-117) U/L Troponin I (0-0.045) ng/ml Total Protein (6.4-8.2) gm/dl Albumin (3.4-5.0) gm/dl Lipase (73-393) U/L TSH (0.300-4.500) uIu/ml Urine Color Yellow Urine Appearance Clear (Clear) Urine pH 6.0 (4.5-7.5) Ur Specific Ulysses 1.010 (1.000-1.030) Urine Protein Negative (Negative) Urine Glucose (UA) Negative (Negative) Urine Ketones Trace H (Negative) Urine Blood Negative (Negative) Urine Nitrite Negative (Negative) Urine Bilirubin Negative (Negative) Urine Urobilinogen Negative (Negative) Ur Leukocyte Esterase Negative (Negative) Urine Osmolality (500-800) mOsm/kg Ur Random Sodium mmol/L Digoxin (0.8-2.0) ng/ml COVID-19 Eval Order SARS-CoV-2 (PCR) (Negative) 02/15/21 02/15/21 Range/Units 05:08 05:08 WBC (4.8-10.8) K/uL RBC (4.7-6.1) M/uL Hgb (14.0-18.0) g/dL Hct (42-52) % MCV (80-100) fL MCH (25-34) pg MCHC (32-36) g/dL RDW Std Deviation (36.4-46.3) fL RDW Coeff of Aleks (11.5-14.5) % Plt Count (130-400) K/uL MPV (7.4-10.4) fL Immature Gran % (Auto) % Neut % (Auto) % Lymph % (Auto) % Conway % (Auto) % Eos % (Auto) % Baso % (Auto) % Neut # (Auto) (1.4-6.5) K/uL Lymph # (Auto) (1.2-3.4) K/uL Conway # (Auto) (0.11-0.59) K/uL Eos # (Auto) (0-0.5) K/uL Baso # (Auto) (0-0.2) K/uL Immature Gran # (Auto) (0.00-0.02) K/uL Platelet Estimate (Normal) RBC Morphology PT (9.0-12.0) Seconds INR (0.9-1.1) APTT (21.0-31.0) Seconds PTT Ratio Sodium (136-145) mmol/L Potassium (3.5-5.1) mmol/L Chloride (98-107) mmol/L Carbon Dioxide (21-32) mmol/L Anion Gap (3-11) BUN (7-18) mg/dl Creatinine (0.6-1.4) mg/dl Est Cr Clr Drug Dosing ml/min Est GFR ( Amer) ml/min Est GFR (Non-Af Amer) ml/min BUN/Creatinine Ratio (10-20) Glucose (70-99) mg/dl Osmolality (280-300) mOsm/kg Calcium (8.5-10.1) mg/dl Magnesium (1.8-2.4) mg/dl Total Bilirubin (0.2-1) mg/dl Direct Bilirubin (0-0.2) mg/dl AST (15-37) U/L ALT (12-78) U/L Alkaline Phosphatase (45-117) U/L Troponin I (0-0.045) ng/ml Total Protein (6.4-8.2) gm/dl Albumin (3.4-5.0) gm/dl Lipase (73-393) U/L TSH (0.300-4.500) uIu/ml Urine Color Urine Appearance (Clear) Urine pH (4.5-7.5) Ur Specific Ulysses (1.000-1.030) Urine Protein (Negative) Urine Glucose (UA) (Negative) Urine Ketones (Negative) Urine Blood (Negative) Urine Nitrite (Negative) Urine Bilirubin (Negative) Urine Urobilinogen (Negative) Ur Leukocyte Esterase (Negative) Urine Osmolality 353 L (500-800) mOsm/kg Ur Random Sodium 60 mmol/L Digoxin (0.8-2.0) ng/ml COVID-19 Eval Order SARS-CoV-2 (PCR) (Negative) Administered Medications Discontinued Medications Sodium Chloride (Nss 1000ml) 500 mls @ 999 mls/hr IV .Q31M ONE Stop: 02/15/21 04:02 Last Infusion: 02/15/21 04:19 Dose: 0 mls/hr Documented by: [id number] Admin: 02/15/21 03:45 Dose: 999 mls/hr Documented by: [id number] Ondansetron HCl (Ondansetron Inj 2 Mg/Ml 2 Ml Vial) 4 mg IV NOW STA Stop: 02/15/21 03:33 Last Admin: 02/15/21 03:45 Dose: 4 mg Documented by: [id number] Discharge Plan Visit Data Chief Complaint: Illness Stated Complaint: SICK,LETHARGIC,OUT OF IT ED Provider: Paresh Marte Discharge Problem: Acute weakness, Acute dehydration, Elevated troponin Forms Stand Alone Forms: My [facility] Prescriptions Prescriptions: No Action cimetidine 400 mg tablet 400 mg PO BID RF: 0 diltiazem HCl 240 mg capsule,extended release 24hr 240 mg PO DAILY RF: 0 glimepiride 2 mg tablet 2 mg DAILY RF: 0 digoxin 125 mcg (0.125 mg) tablet 0.125 mcg PO DAILY RF: 0 colestipol 1 gram tablet 1 g PO BID RF: 0 warfarin 5 mg tablet 5 mg PO WK RF: 0 warfarin 5 mg tablet 2.5 mg PO 6XWK RF: 0 loperamide [Imodium A-D] 2 mg Tablet 2 mg PO BID RF: 0 lisinopril 5 mg tablet 5 mg PO DAILY RF: 0 acetaminophen [Mapap (acetaminophen)] 325 mg Tablet 650 mg PO Q4H PRN (Reason: fever or pain) Qty: 6 RF: 0
[2021-02-15 04:03] LABS: INR 1.6 (0.9-1.1); Partial Thromboplastin Ratio 1.4; Prothrombin Time 15.4 Seconds (9.0-12.0)
[2021-02-15 04:13] LABS: Albumin Level 2.4 gm/dl (3.4-5.0); BUN Creatinine Ratio 11.5 (10-20); Bilirubin Direct 0.5 mg/dl (0-0.2); Calcium 7.7 mg/dl (8.5-10.1); Creatinine Clr Calc Pharmacy 43.2 ml/min; Est GFR (African American) 54.9 ml/min; Est GFR (Non-African American) 47.4 ml/min; Magnesium 1.8 mg/dl (1.8-2.4); Potassium 3.9 mmol/L (3.5-5.1)
[2021-02-15 04:29] LABS: Bilirubin,Total 1.1 mg/dl (0.2-1); Total Protein 6.6 gm/dl (6.4-8.2); Troponin I 0.061 ng/ml (0-0.045)
[2021-02-15 05:17] LABS: Appearance Urine Clear (Clear); Bilirubin Urine Negative (Negative); Blood Urine Negative (Negative); Color Urine Yellow; Glucose Urine UA Negative (Negative); Ketones Urine Trace (Negative); Leukocyte Esterase Urine Negative (Negative); Nitrite Urine Negative (Negative); Protein Urine Negative (Negative); Urobilinogen Urine Negative (Negative)
[2021-02-15 05:29] LABS: Basophils # (auto) 0.01 K/uL (0-0.2); Basophils % (auto) 0.2 %; Hematocrit (blood only) 30.4 % (42-52); Hemoglobin 10.5 g/dL (14.0-18.0); Immature Granulocytes # (auto) 0.01 K/uL (0.00-0.02); Immature Granulocytes % (auto) 0.2 %; Lymphocytes # (auto) 0.92 K/uL (1.2-3.4); Lymphocytes % (auto) 14.8 %; Mean Corpuscular Hemoglobin 27.2 pg (25-34); Mean Corpuscular Hgb Conc 34.5 g/dL (32-36); Mean Corpuscular Volume 78.8 fL (80-100); Mean Platelet Volume 10.4 fL (7.4-10.4); Monocytes # (auto) 0.59 K/uL (0.11-0.59); Monocytes % (auto) 9.5 %; Neutrophils # (auto) 4.69 K/uL (1.4-6.5); Neutrophils % (auto) 75.3 %; Platelet Count 87 K/uL (130-400); Platelet Estimate Decreased (Normal); RBC Morphology Unremarkable; RDW Coefficient of Variation 15.2 % (11.5-14.5); RDW Standard Deviation 43.7 fL (36.4-46.3); Red Blood Count 3.86 M/uL (4.7-6.1); White Blood Count 6.22 K/uL (4.8-10.8)
--- NOTE | 2021-02-15 06:05 | History & Physical Report ---
Date of Service February 15, 2021 Assessment & Plan (1) Hyponatremia: Secondary to poor p.o. intake secondary to worsening of chronic abdominal pain/diarrhea symptoms Rule out intra-abdominal pathology with abnormal LFTs, C. difficile Asymptomatic troponin elevation in the setting of baseline chronic kidney dysfunction chronic diastolic heart failure (EF 50%, TTE 2020), patient on the dry side A. fib on Coumadin, rate controlled, INR subtherapeutic HTN, BP on the lower side, possible explanation for weakness/lightheadedness symptoms valvular heart disease (moderate MR, severe TR) pancreatic cancer sp partial Whipple procedure 2009, GERD, stable on PPI DM2 diet-controlled, well-controlled as of recent hemoglobin A1c of 6.27 April 2020 chronic anemia, hemoglobin at baseline Episodic thrombocytopenia past tobacco abuse. Medical telemetry Careful correction of sodium Hyponatremia work-up Hold home diuretic for now Nephrology consult if without improvement CT abdomen pelvis RE abdominal pain Stool C. difficile Appropriate to decrease maintenance beta-rosendo dose, hold home KEYANNA inhibitor given borderline BP ISS BG goal 1 10-1 40, update hemoglobin A1c DVT prophylaxis. Coumadin INR goal between 2 and 3 if no bleeding on CAT scan Full code Patient's requesting update providers. Ms. Patito Espinal, contact #[phone]. Text document was generated using [employer] voice recognition software. It may contain grammatical or spelling errors. Kindly contact undersigned for clarification of any documentation item in question. History of Present Illness Chief Complaint: Weakness, abdominal pain, poor appetite Primary Care Provider: Jordan Grant MD History obtained from patient, family, and records. Medical history significant for chronic diastolic heart failure (EF 50%, TTE 2020), A. fib on Coumadin, HTN, hyperlipidemia, valvular heart disease (moderate MR, severe TR), pancreatic cancer sp partial Whipple procedure 2009, IBS diarrhea predominant, GERD, DM2 diet-controlled, CRI (baseline creatinine 1.3-1.5), chronic anemia (baseline hemoglobin 10), past tobacco abuse. Last confinement January 2020 for UGI B. [place] subsequently [place] [facility] [place] Patient unhappy with current Lasix 80 mg daily dosing which leads to urinary frequency for about a year now. The last few days, patient noted some worsening of chronic lower abdominal discomfort along with worsening nonbloody diarrhea symptoms. No fever, no chills. Patient denies chest pain, S OB. No recent out-of-town travel/sick c ontacts/antibiotic Rx. Poor appetite. Patient denies depression. Patient noted to be unsteady and weak by . Patient later stumbled at home leading to head trauma. No syncope/LOC. Patient was brought to the Emergency Room by . Patient feeling much better after IVF administration at the ER. MEDICAL HISTORY: As above. SURGERIES: He had a Whipple procedure, cataract surgery, Lasik surgery, partial Whipple procedure, tonsillectomy, and adenectomy. FAMILY HISTORY: Lung cancer and heart disease. PERSONAL AND SOCIAL HISTORY: past tobacco abuse. No chronic intake of alcoho lic beverages. 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 Allergies Allergy/AdvReac Type Severity Reaction Status Date / Time No Known Allergies Allergy Unknown Verified 01/26/20 15:27 Home Medications Medication Instructions Recorded Confirmed Type cimetidine 400 mg PO BID 01/26/20 01/26/20 History colestipol 1 g PO BID 01/26/20 01/26/20 History digoxin 0.125 mcg PO DAILY 01/26/20 01/26/20 History diltiazem HCl 240 mg PO DAILY 01/26/20 01/26/20 History glimepiride 2 mg DAILY 01/26/20 01/26/20 History lisinopril 5 mg PO DAILY 01/26/20 01/26/20 History loperamide [Imodium A-D] 2 mg PO BID 01/26/20 01/26/20 History warfarin 2.5 mg PO [id number] 01/26/20 01/26/20 History warfarin 5 mg PO WK 01/26/20 01/26/20 History acetaminophen [Mapap 650 mg PO Q4H PRN #6 tab 01/27/20 Rx (acetaminophen)] Past Med/Surg History Medical History (Updated 02/15/21 @ 06:40 by Gallo Cevallos MD) Atrial fibrillation Diabetes mellitus, type II Diarrhea due to malabsorption Dyslipidemia GERD (gastroesophageal reflux disease) HTN (hypertension) Pancreatic cancer Venous insufficiency Surgical History H/O cataract removal with insertion of prosthetic lens H/O total hip arthroplasty History of pancreatectomy "with subtotal duodenectomy performed by Dr. 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 [employer] Feels Safe at Home: Yes Assistive Devices: None Review of Systems Review of Systems: As per HPI, all 10 systems reviewed, all other ROS negative Physical Exam Physical Exam: GENERAL: Slightly uncomfortable, pleasant, no respiratory distress SKIN: Pallor , warm HEENT: Alopecia, pale palpebral conjunctivae, no ptosis, dry buccal mucosa NECK : Supple, no tenderness CHEST : Decreased breath sounds, no tenderness HEART : Irregular, apical systolic murmur ABDOMEN: Some distention, hypogastric tenderness EXTREMITIES : No LE swelling/tenderness, no other conspicuous deformities noted NEUROLOGIC : Coherent, no facial asymmetry, no other gross focality Results & Data Results & Data ([facility]) Vital Signs (Past 12 Hours) Vital Signs Temp Pulse Pulse Resp BP BP Pulse Ox 02/15/21 05:31 78 18 107/90 98 02/15/21 04:40 83 20 114/62 97 02/15/21 03:48 85 20 128/68 99 02/15/21 03:17 36.6 C 75 20 94/56 L 97 Laboratory Results Laboratory Results WBC 6.22 K/uL (4.8-10.8) 02/15/21 04:34 RBC 3.86 M/uL (4.7-6.1) L 02/15/21 04:34 Hgb 10.5 g/dL (14.0-18.0) L 02/15/21 04:34 Hct 30.4 % (42-52) L 02/15/21 04:34 MCV 78.8 fL (80-100) L 02/15/21 04:34 MCH 27.2 pg (25-34) 02/15/21 04:34 MCHC 34.5 g/dL (32-36) 02/15/21 04:34 RDW Std Deviation 43.7 fL (36.4-46.3) 02/15/21 04:34 RDW Coeff of Aleks 15.2 % (11.5-14.5) H 02/15/21 04:34 Plt Count 87 K/uL (130-400) L 02/15/21 04:34 MPV 10.4 fL (7.4-10.4) 02/15/21 04:34 Immature Gran % (Auto) 0.2 % 02/15/21 04:34 Neut % (Auto) 75.3 % 02/15/21 04:34 Lymph % (Auto) 14.8 % 02/15/21 04:34 Camp % (Auto) 9.5 % 02/15/21 04:34 Eos % (Auto) 0.0 % 02/15/21 04:34 Baso % (Auto) 0.2 % 02/15/21 04:34 Neut # (Auto) 4.69 K/uL (1.4-6.5) 02/15/21 04:34 Lymph # (Auto) 0.92 K/uL (1.2-3.4) L 02/15/21 04:34 Camp # (Auto) 0.59 K/uL (0.11-0.59) 02/15/21 04:34 Eos # (Auto) 0.00 K/uL (0-0.5) 02/15/21 04:34 Baso # (Auto) 0.01 K/uL (0-0.2) 02/15/21 04:34 Immature Gran # (Auto) 0.01 K/uL (0.00-0.02) 02/15/21 04:34 Platelet Estimate Decreased (Normal) L 02/15/21 04:34 RBC Morphology Unremarkable 02/15/21 04:34 PT 15.4 Seconds (9.0-12.0) H 02/15/21 03:33 INR 1.6 (0.9-1.1) H 02/15/21 03:33 APTT 38.0 Seconds (21.0-31.0) H 02/15/21 03:33 PTT Ratio 1.4 02/15/21 03:33 Sodium 129 mmol/L (136-145) L 02/15/21 03:34 Potassium 3.9 mmol/L (3.5-5.1) 02/15/21 03:34 Chloride 95 mmol/L (98-107) L 02/15/21 03:34 Carbon Dioxide 29 mmol/L (21-32) 02/15/21 03:34 Anion Gap 5.0 (3-11) 02/15/21 03:34 BUN 16 mg/dl (7-18) 02/15/21 03:34 Creatinine 1.41 mg/dl (0.6-1.4) H 02/15/21 03:34 Est Cr Clr Drug Dosing 43.2 ml/min 02/15/21 03:34 Est GFR ( Amer) 54.9 ml/min 02/15/21 03:34 Est GFR (Non-Af Amer) 47.4 ml/min 02/15/21 03:34 BUN/Creatinine Ratio 11.5 (10-20) 02/15/21 03:34 Glucose 90 mg/dl (70-99) 02/15/21 03:34 Osmolality 263 mOsm/kg (280-300) L 02/15/21 04:33 Calcium 7.7 mg/dl (8.5-10.1) L 02/15/21 03:34 Magnesium 1.8 mg/dl (1.8-2.4) 02/15/21 03:34 Total Bilirubin 1.1 mg/dl (0.2-1) H 02/15/21 03:34 Direct Bilirubin 0.5 mg/dl (0-0.2) H 02/15/21 03:34 AST 69 U/L (15-37) H 02/15/21 03:34 ALT 41 U/L (12-78) 02/15/21 03:34 Alkaline Phosphatase 134 U/L (45-117) H 02/15/21 03:34 Troponin I 0.061 ng/ml (0-0.045) H* 02/15/21 03:34 Total Protein 6.6 gm/dl (6.4-8.2) 02/15/21 03:34 Albumin 2.4 gm/dl (3.4-5.0) L 02/15/21 03:34 Lipase 52 U/L (73-393) L 02/15/21 03:34 TSH Cancelled 02/15/21 03:34 Urine Color Yellow 02/15/21 05:08 Urine Appearance Clear (Clear) 02/15/21 05:08 Urine pH 6.0 (4.5-7.5) 02/15/21 05:08 Ur Specific [place] 1.010 (1.000-1.030) 02/15/21 05:08 Urine Protein Negative (Negative) 02/15/21 05:08 Urine Glucose (UA) Negative (Negative) 02/15/21 05:08 Urine Ketones Trace (Negative) H 02/15/21 05:08 Urine Blood Negative (Negative) 02/15/21 05:08 Urine Nitrite Negative (Negative) 02/15/21 05:08 Urine Bilirubin Negative (Negative) 02/15/21 05:08 Urine Urobilinogen Negative (Negative) 02/15/21 05:08 Ur Leukocyte Esterase Negative (Negative) 02/15/21 05:08 Urine Osmolality 353 mOsm/kg (500-800) L 02/15/21 05:08 Ur Random Sodium 60 mmol/L 02/15/21 05:08 Digoxin 0.7 ng/ml (0.8-2.0) L 02/15/21 04:33 COVID-19 Eval Order Covid19 at [facility] 02/15/21 03:51 SARS-CoV-2 (PCR) NEGATIVE (Negative) 02/15/21 03:[address] head initial read: There is an approximately 1.5 cm area of encephalomalacia in the left frontal lobe subcortical white matter consistent with old infarct. Mild periventricular and deep white matter low densities consistent with chronic small vessel disease and/or senescent changes. There is no evidence of acute large vessel infarct or intracranial hemorrhage. The paranasal sinuses and mastoid air cells are normal. No skull fracture or significant scalp hematoma is seen. Chest x-ray : Cardiomegaly, elevated right hemidiaphragm EKG as per my interpretation : Rate 85, A. fib, T wave flattening lateral leads, low voltage
[2021-02-15 06:07] LABS: Thyroid Stimulating Hormone 2.32 uIu/ml (0.300-4.500)
[2021-02-15 07:09] LABS: Estimated Average Glucose 131 mg/dl; Hemoglobin A1C 6.2 % (4.5-5.6)
--- NOTE | 2021-02-15 07:33 | CT Scan Report ---
ABDOMEN AND PELVIS CT WITHOUT CONTRAST CT DOSE: 430.00 mGy.cm HISTORY: Generalized abdominal pain. Pancreatic cancer. TECHNIQUE: Multiaxial CT images of the abdomen and pelvis were performed without contrast. A dose lo wering technique was utilized adhering to the principles of ALARA. COMPARISON STUDY: Abdomen and pelvis CT 01/26/2020. FINDINGS: The lung bases are clear. The heart remains enlarged. No pneumoperitoneum. No pneumatosis. There is a right total hip arthroplasty. No suspicious lytic or blastic osseous lesions. Stable mildl y enlarged right anterior diaphragmatic lymph node measuring 11 mm. No hepatic or splenic masses. Sma ll focal right subhepatic fluid collection best seen on image 198. This measures 4.2 cm. No hydroneph rosis. Normal caliber abdominal aorta. The adrenal glands are unremarkable. Prior cholecystectomy and Whipple procedure. Persistent dilatation of the residual pancreatic duct. No retroperitoneal lymphad enopathy. Upper abdominal varicosities persist. The bladder is unremarkable. The prostate gland is en larged. There are also scattered pelvic varicosities most pronounced in the perirectal location. [place] ceci diverticulosis. There is moderate diffuse colonic wall thickening with pericolonic fat stranding consistent with a pancolitis. Normal appendix. No dilated loops of bowel to suggest an obstruction. IMPRESSION: 1. Moderate diffuse colonic wall thickening with pericolonic fat stranding consistent with a nonspeci fic colitis. This favors an infectious or inflammatory process. 2. Status post Whipple procedure. No change in the dilated residual main pancreatic duct. 3. Nonspecific 4.2 cm focal fluid collection within the right subhepatic location. This could repres ent a pseudocyst. Follow-up recommended to ensure resolution. 4. Colonic diverticulosis. No evidence for acute diverticulitis. ACT 112: Negative or not required by law. Electronically signed by: Tesfaye Muro M.D. 02/15/2021 7:32 AM
[2021-02-15] MEDS ORDERED: GLUCAGON FOR INJ 1 MG VIAL SQ PRN (07:51)
[2021-02-15] MEDS ORDERED: HYDROmorphone INJ 0.5 MG/0.5 ML SYR IV PRN (07:51)
[2021-02-15] MEDS ORDERED: CARBOHYDRATES FOR HYPOGLYCEMIA PO PRN (07:51)
[2021-02-15] MEDS ORDERED: oxyCODONE HCL IR 5 MG TAB (IMMEDIATE RELEASE) PO PRN (07:51)
[2021-02-15] MEDS ORDERED: POTASSIUM CHLORIDE CRTAB 20 MEQ TABCR PO STA (07:51)
[2021-02-15] MEDS ORDERED: ACETAMINOPHEN 325 MG TAB PO PRN (07:51)
[2021-02-15] MEDS ORDERED: POTASSIUM CHLORIDE CRTAB 20 MEQ TABCR PO SCH (07:51)
[2021-02-15] MEDS ORDERED: DEXTROSE 50% 50 ML SYRINGE IV PRN (07:51)
[2021-02-15] MEDS ORDERED: GLUCOSE 10 TABS/TUBE PO PRN (07:51)
[2021-02-15] MEDS ORDERED: PROMETHAZINE HCL 6.25 MG in SODIUM CHLORIDE 0.9% 50 ML IV PRN (07:51)
[2021-02-15] MEDS ORDERED: GLUCOSE 40% GEL 15 GM TUBE PO PRN (07:51)
[2021-02-15] MEDS ORDERED: MAGNESIUM SULFATE / D5W 1 GM/100 ML BAG IV ONE (08:00)
--- NOTE | 2021-02-15 08:07 | XRay Report ---
XR chest 1V portable HISTORY: weakness COMPARISON: Chest 01/26/2020. FINDINGS: No pneumothorax. No pleural effusions. The cardiac silhouette remains mildly enlarged. No n ew focal lung consolidations to suggest pneumonia. No evidence for pulmonary edema. IMPRESSION: Stable mild cardiomegaly. ACT 112: Negative or not required by law. Electronically signed by: Tesfaye Muro M.D. 02/15/2021 8:05 AM
--- NOTE | 2021-02-15 08:53 | CT Scan Report ---
CT SCAN OF THE BRAIN WITHOUT IV CONTRAST CLINICAL HISTORY: Generalized weakness. For an injury. COMPARISON STUDY: No priors. TECHNIQUE: Unenhanced axial CT scan of the brain is performed from the vertex to the skull base. A do se lowering technique was utilized adhering to the principles of ALARA. CT DOSE: 614.27 mGy.cm FINDINGS: Brain parenchyma: There are age-related involutional changes noting mild to moderate subcortical and periventricular microangiopathic change. A focus of left frontal encephalomalacia is consistent with a remote insult. There is no hemorrhage, mass effect, or evidence of acute territorial ischemia by C T criteria. Enriquez-white matter differentiation is preserved. No extra-axial fluid collection is seen. Mineralization is noted in the basal ganglia. Ventricles, sulci, cisterns: Prominent secondary to involutional change. Intracranial vasculature: There is atherosclerotic calcification of the cavernous carotid arteries. Calvarium: Unremarkable. Sinuses and mastoids: The visualized paranasal sinuses are clear. The mastoid air cells are well pneu matized. Orbits: The bony orbits are grossly intact. There are bilateral ocular lens implants. IMPRESSION: There is no hemorrhage, mass effect, or evidence of acute territorial ischemia by CT natalia naik. ACT 112: Negative or not required by law. Electronically signed by: Benedict Ray M.D. 02/15/2021 8:51 AM
[2021-02-15] MEDS: INSULIN ASPART 100 UNITS/ML 3 ML PEN SC SCH ×4 (09:24→20:22)
[2021-02-15] MEDS: METOPROLOL SUCC 25MG EXT REL TAB PO SCH (10:11)
[2021-02-15] MEDS: PANTOprazole 40 MG TAB PO SCH (10:12)
--- NOTE | 2021-02-15 11:40 | History & Physical Report ---
Date of Service February 15, 2021 Assessment & Plan (1) Colitis: 80-year-old male s/p Whipple 2009 for pancreatic CA, admitted with acute on chronic diarrhea, weakness, hyponatremia, and CT findings suggestive of colitis, and nonspecific fluid collection in the subhepatic region. Diff dx for his CT findings would be infectious versus inflammatory colitis, does not seem to be consistent with ischemic etiology; also consider colopathy from CHF. Today overall he is feeling better; abd soft. -Await C. diff testing -On review of his Epic chart, his chronic diarrhea s/p Billroth II surgery was not previously helped by pancreatic enzymes, Imodium or Questran; am not sure that repeat trial of pancreatic enzymes would be beneficial. I'm not sure if Lomotil has been tried. Will r/o infectious etiologies first. - Supportive care with hydration; liquid diet as tolerated - His subhepatic fluid collection is of unclear etiology; would recommend follow-up with repeat imaging after discharge Thank you for allowing us to participate in the care of this patient. Please call with any acute changes, questions or concerns. Please see addendum below with additional recommendation from my supervising physician. Admission and Anticipated Discharge Date Admission Date: February 15, 2021 History of Present Illness Chief Complaint: colitis Primary Care Provider: Jordan Grant MD This is a 80-year-old male with history of chronic diastolic heart failure, A. fib on Coumadin, HTN, HLD, valvular heart disease, pancreatic cancer SP partial Whipple 2009, IBS diarrhea, GERD, T2DM, CKD, chronic anemia, past tobacco abuse, history of gastrojejunal anastomotic ulcer, admitted today after presenting with worsening of his chronic lower abdominal discomfort and diarrhea, along with weakness. Patient states he was too weak to get up and so his took him to the hospital. On arrival, found to have hyponatremia; Hgb improved from baseline at 10.5. CTAP with diffuse colonic thickening c/w nonspecific colitis and a nonspecific 4.2 cm focal fluid collection within the right subhepatic location. Stool culture neg; c diff pending. He states ever since his whipple he's had chronic nonbloody diarrhea several times a day. He states he was tried on pancreatic enzymes which were not helpful. Denies melena, hematochezia, hematemesis fevers or chills, chest pain or shortness of breath, change in appetite. No recent sick contacts, he is on well water. Lasix has been added recently, and he feels that this may have contributed to his weakness. Last EGD 05/25/2020: Large inlet patch x 2 in proximal esophagus. The GE junction was unremarkable. There was evidence of a prior gastro jejunostomy. The stomach mucosa was normal. Random stomach biopsies were done. The previously placed Padlock clip was seen to be embedded in the mucosa at the anastomosis. There was no active scar or anastomotic stricture. The small intestine was normal. Last colonoscopy 05/25/2020: Hemorrhoids found on perianal exam. - Diverticulosis in the entire examined colon. - One 2 mm polyp in the ascending colon, removed with a cold snare. Complete resection. Polyp tissue not retrieved. - The examination was otherwise normal. Allergies Allergy/AdvReac Type Severity Reaction Status Date / Time No Known Allergies Allergy Unknown Verified 02/15/21 07:18 Home Medications Medication Instructions Recorded Confirmed Type digoxin 0.125 mcg PO DAILY 01/26/20 02/15/21 History glimepiride 2 mg PO DAILY 01/26/20 02/15/21 History loperamide [Imodium A-D] 2 mg PO BID 01/26/20 02/15/21 History ascorbic acid (vitamin C) [Vitamin 500 mg PO DAILY 02/15/21 02/15/21 History C] cholecalciferol (vitamin D3) 5,000 unit PO DAILY 02/15/21 02/15/21 History ferrous sulfate 325 mg PO BID 02/15/21 02/15/21 History furosemide 80 mg PO DAILY 02/15/21 02/15/21 History lisinopril 2.5 mg PO DAILY 02/15/21 02/15/21 History metoprolol succinate 150 mg PO DAILY 02/15/21 02/15/21 History pantoprazole 40 mg PO DAILY 02/15/21 02/15/21 History warfarin See Rx Instructions .ROUTE .COMPLEX 02/15/21 02/15/21 History Past Med/Surg History Medical History (Updated 02/15/21 @ 11:48 by Meseret Ren PA-C) Atrial fibrillation Diabetes mellitus, type II Diarrhea due to malabsorption Dyslipidemia GERD (gastroesophageal reflux disease) HTN (hypertension) Pancreatic cancer Venous insufficiency Surgical History H/O cataract removal with insertion of prosthetic lens H/O total hip arthroplasty History of pancreatectomy "with subtotal duodenectomy performed by Dr. 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 [employer] Feels Safe at Home: Yes Assistive Devices: None Review of Systems All systems reviewed & are unremarkable except as noted in HPI & below Physical Exam Constitutional: WD/WN, vitals as above Eyes: + anicteric sclerae Neck: trachea midline Respiratory: normal respiratory effort, lungs clear to auscultation Cardiovascular: RRR, no murmur, no edema Gastrointestinal (Abdomen): normal bowel sounds, soft, nontender, no hepat osplenomegaly + Healed surgical scars Skin: no rashes, warm and dry Psychiatric: A+Ox3, euthymic affect Results & Data ([facility]) Vital Signs (Past 12 Hours) Vital Signs Temp Pulse Pulse Resp BP BP Pulse Ox 02/15/21 11:04 37.7 C H 89 16 136/73 99 02/15/21 06:29 76 20 116/60 96 02/15/21 05:31 78 18 107/90 98 02/15/21 04:40 83 20 114/62 97 02/15/21 03:48 85 20 128/68 99 02/15/21 03:17 36.6 C 75 20 94/56 L 97 Laboratory Results 02/15/21 02/15/21 02/15/21 Range/Units 11:30 08:09 08:09 WBC (4.8-10.8) K/uL RBC (4.7-6.1) M/uL Hgb (14.0-18.0) g/dL Hct (42-52) % MCV (80-100) fL MCH (25-34) pg MCHC (32-36) g/dL RDW Std Deviation (36.4-46.3) fL RDW Coeff of Aleks (11.5-14.5) % Plt Count (130-400) K/uL MPV (7.4-10.4) fL Immature Gran % (Auto) % Neut % (Auto) % Lymph % (Auto) % [place] % (Auto) % Eos % (Auto) % Baso % (Auto) % Neut # (Auto) (1.4-6.5) K/uL Lymph # (Auto) (1.2-3.4) K/uL [place] # (Auto) (0.11-0.59) K/uL Eos # (Auto) (0-0.5) K/uL Baso # (Auto) (0-0.2) K/uL Immature Gran # (Auto) (0.00-0.02) K/uL Platelet Estimate (Normal) RBC Morphology PT (9.0-12.0) Seconds INR (0.9-1.1) APTT (21.0-31.0) Seconds PTT Ratio Sodium (136-145) mmol/L Potassium (3.5-5.1) mmol/L Chloride (98-107) mmol/L Carbon Dioxide (21-32) mmol/L Anion Gap (3-11) BUN (7-18) mg/dl Creatinine (0.6-1.4) mg/dl Est Cr Clr Drug Dosing ml/min Est GFR ( Amer) ml/min Est GFR (Non-Af Amer) ml/min BUN/Creatinine Ratio (10-20) Glucose (70-99) mg/dl POC Glucose 139 H (70-99) mg/dl Estimat Average Glucose mg/dl Hemoglobin A1c (4.5-5.6) % Osmolality (280-300) mOsm/kg Lactate 1.1 (0.4-2.0) mmol/L Calcium (8.5-10.1) mg/dl Magnesium (1.8-2.4) mg/dl Total Bilirubin (0.2-1) mg/dl Direct Bilirubin (0-0.2) mg/dl AST (15-37) U/L ALT (12-78) U/L Alkaline Phosphatase (45-117) U/L Troponin I 0.064 H* (0-0.045) ng/ml Total Protein (6.4-8.2) gm/dl Albumin (3.4-5.0) gm/dl Lipase (73-393) U/L TSH (0.300-4.500) uIu/ml Urine Color Urine Appearance (Clear) Urine pH (4.5-7.5) Ur Specific [place] (1.000-1.030) Urine Protein (Negative) Urine Glucose (UA) (Negative) Urine Ketones (Negative) Urine Blood (Negative) Urine Nitrite (Negative) Urine Bilirubin (Negative) Urine Urobilinogen (Negative) Ur Leukocyte Esterase (Negative) Urine Osmolality (500-800) mOsm/kg Ur Random Sodium mmol/L Digoxin (0.8-2.0) ng/ml COVID-19 Eval Order SARS-CoV-2 (PCR) (Negative) 02/15/21 02/15/21 02/15/21 Range/Units 07:56 05:08 05:08 WBC (4.8-10.8) K/uL RBC (4.7-6.1) M/uL Hgb (14.0-18.0) g/dL Hct (42-52) % MCV (80-100) fL MCH (25-34) pg MCHC (32-36) g/dL RDW Std Deviation (36.4-46.3) fL RDW Coeff of Aleks (11.5-14.5) % Plt Count (130-400) K/uL MPV (7.4-10.4) fL Immature Gran % (Auto) % Neut % (Auto) % Lymph % (Auto) % [place] % (Auto) % Eos % (Auto) % Baso % (Auto) % Neut # (Auto) (1.4-6.5) K/uL Lymph # (Auto) (1.2-3.4) K/uL [place] # (Auto) (0.11-0.59) K/uL Eos # (Auto) (0-0.5) K/uL Baso # (Auto) (0-0.2) K/uL Immature Gran # (Auto) (0.00-0.02) K/uL Platelet Estimate (Normal) RBC Morphology PT (9.0-12.0) Seconds INR (0.9-1.1) APTT (21.0-31.0) Seconds PTT Ratio Sodium (136-145) mmol/L Potassium (3.5-5.1) mmol/L Chloride (98-107) mmol/L Carbon Dioxide (21-32) mmol/L Anion Gap (3-11) BUN (7-18) mg/dl Creatinine (0.6-1.4) mg/dl Est Cr Clr Drug Dosing ml/min Est GFR ( Amer) ml/min Est GFR (Non-Af Amer) ml/min BUN/Creatinine Ratio (10-20) Glucose (70-99) mg/dl POC Glucose 78 (70-99) mg/dl Estimat Average Glucose mg/dl Hemoglobin A1c (4.5-5.6) % Osmolality (280-300) mOsm/kg Lactate (0.4-2.0) mmol/L Calcium (8.5-10.1) mg/dl Magnesium (1.8-2.4) mg/dl Total Bilirubin (0.2-1) mg/dl Direct Bilirubin (0-0.2) mg/dl AST (15-37) U/L ALT (12-78) U/L Alkaline Phosphatase (45-117) U/L Troponin I (0-0.045) ng/ml Total Protein (6.4-8.2) gm/dl Albumin (3.4-5.0) gm/dl Lipase (73-393) U/L TSH (0.300-4.500) uIu/ml Urine Color Urine Appearance (Clear) Urine pH (4.5-7.5) Ur Specific [place] (1.000-1.030) Urine Protein (Negative) Urine Glucose (UA) (Negative) Urine Ketones (Negative) Urine Blood (Negative) Urine Nitrite (Negative) Urine Bilirubin (Negative) Urine Urobilinogen (Negative) Ur Leukocyte Esterase (Negative) Urine Osmolality 353 L (500-800) mOsm/kg Ur Random Sodium 60 mmol/L Digoxin (0.8-2.0) ng/ml COVID-19 Eval Order SARS-CoV-2 (PCR) (Negative) 05/25/21 05/25/21 05/25/21 Range/Units 05:08 04:34 04:34 WBC 6.22 (4.8-10.8) K/uL RBC 3.86 L (4.7-6.1) M/uL Hgb 10.5 L (14.0-18.0) g/dL Hct 30.4 L (42-52) % MCV 78.8 L (80-100) fL MCH 27.2 (25-34) pg MCHC 34.5 (32-36) g/dL RDW Std Deviation 43.7 (36.4-46.3) fL RDW Coeff of Aleks 15.2 H (11.5-14.5) % Plt Count 87 L (130-400) K/uL MPV 10.4 (7.4-10.4) fL Immature Gran % (Auto) 0.2 % Neut % (Auto) 75.3 % Lymph % (Auto) 14.8 % [place] % (Auto) 9.5 % Eos % (Auto) 0.0 % Baso % (Auto) 0.2 % Neut # (Auto) 4.69 (1.4-6.5) K/uL Lymph # (Auto) 0.92 L (1.2-3.4) K/uL [place] # (Auto) 0.59 (0.11-0.59) K/uL Eos # (Auto) 0.00 (0-0.5) K/uL Baso # (Auto) 0.01 (0-0.2) K/uL Immature Gran # (Auto) 0.01 (0.00-0.02) K/uL Platelet Estimate Decreased L (Normal) RBC Morphology Unremarkable PT (9.0-12.0) Seconds INR (0.9-1.1) APTT (21.0-31.0) Seconds PTT Ratio Sodium (136-145) mmol/L Potassium (3.5-5.1) mmol/L Chloride (98-107) mmol/L Carbon Dioxide (21-32) mmol/L Anion Gap (3-11) BUN (7-18) mg/dl Creatinine (0.6-1.4) mg/dl Est Cr Clr Drug Dosing ml/min Est GFR ( Amer) ml/min Est GFR (Non-Af Amer) ml/min BUN/Creatinine Ratio (10-20) Glucose (70-99) mg/dl POC Glucose (70-99) mg/dl Estimat Average Glucose 131 mg/dl Hemoglobin A1c 6.2 H (4.5-5.6) % Osmolality (280-300) mOsm/kg Lactate (0.4-2.0) mmol/L Calcium (8.5-10.1) mg/dl Magnesium (1.8-2.4) mg/dl Total Bilirubin (0.2-1) mg/dl Direct Bilirubin (0-0.2) mg/dl AST (15-37) U/L ALT (12-78) U/L Alkaline Phosphatase (45-117) U/L Troponin I (0-0.045) ng/ml Total Protein (6.4-8.2) gm/dl Albumin (3.4-5.0) gm/dl Lipase (73-393) U/L TSH (0.300-4.500) uIu/ml Urine Color Yellow Urine Appearance Clear (Clear) Urine pH 6.0 (4.5-7.5) Ur Specific [place] 1.010 (1.000-1.030) Urine Protein Negative (Negative) Urine Glucose (UA) Negative (Negative) Urine Ketones Trace H (Negative) Urine Blood Negative (Negative) Urine Nitrite Negative (Negative) Urine Bilirubin Negative (Negative) Urine Urobilinogen Negative (Negative) Ur Leukocyte Esterase Negative (Negative) Urine Osmolality (500-800) mOsm/kg Ur Random Sodium mmol/L Digoxin (0.8-2.0) ng/ml COVID-19 Eval Order SARS-CoV-2 (PCR) (Negative) 02/15/21 02/15/21 02/15/21 Range/Units 04:33 04:33 03:51 WBC (4.8-10.8) K/uL RBC (4.7-6.1) M/uL Hgb (14.0-18.0) g/dL Hct (42-52) % MCV (80-100) fL MCH (25-34) pg MCHC (32-36) g/dL RDW Std Deviation (36.4-46.3) fL RDW Coeff of Aleks (11.5-14.5) % Plt Count (130-400) K/uL MPV (7.4-10.4) fL Immature Gran % (Auto) % Neut % (Auto) % Lymph % (Auto) % [place] % (Auto) % Eos % (Auto) % Baso % (Auto) % Neut # (Auto) (1.4-6.5) K/uL Lymph # (Auto) (1.2-3.4) K/uL [place] # (Auto) (0.11-0.59) K/uL Eos # (Auto) (0-0.5) K/uL Baso # (Auto) (0-0.2) K/uL Immature Gran # (Auto) (0.00-0.02) K/uL Platelet Estimate (Normal) RBC Morphology PT (9.0-12.0) Seconds INR (0.9-1.1) APTT (21.0-31.0) Seconds PTT Ratio Sodium (136-145) mmol/L Potassium (3.5-5.1) mmol/L Chloride (98-107) mmol/L Carbon Dioxide (21-32) mmol/L Anion Gap (3-11) BUN (7-18) mg/dl Creatinine (0.6-1.4) mg/dl Est Cr Clr Drug Dosing ml/min Est GFR ( Amer) ml/min Est GFR (Non-Af Amer) ml/min BUN/Creatinine Ratio (10-20) Glucose (70-99) mg/dl POC Glucose (70-99) mg/dl Estimat Average Glucose mg/dl Hemoglobin A1c (4.5-5.6) % Osmolality 263 L (280-300) mOsm/kg Lactate (0.4-2.0) mmol/L Calcium (8.5-10.1) mg/dl Magnesium (1.8-2.4) mg/dl Total Bilirubin (0.2-1) mg/dl Direct Bilirubin (0-0.2) mg/dl AST (15-37) U/L ALT (12-78) U/L Alkaline Phosphatase (45-117) U/L Troponin I (0-0.045) ng/ml Total Protein (6.4-8.2) gm/dl Albumin (3.4-5.0) gm/dl Lipase (73-393) U/L TSH (0.300-4.500) uIu/ml Urine Color Urine Appearance (Clear) Urine pH (4.5-7.5) Ur Specific [place] (1.000-1.030) Urine Protein (Negative) Urine Glucose (UA) (Negative) Urine Ketones (Negative) Urine Blood (Negative) Urine Nitrite (Negative) Urine Bilirubin (Negative) Urine Urobilinogen (Negative) Ur Leukocyte Esterase (Negative) Urine Osmolality (500-800) mOsm/kg Ur Random Sodium mmol/L Digoxin 0.7 L (0.8-2.0) ng/ml COVID-19 Eval Order SARS-CoV-2 (PCR) NEGATIVE (Negative) 02/15/21 02/15/21 02/15/21 Range/Units 03:51 03:34 03:34 WBC (4.8-10.8) K/uL RBC (4.7-6.1) M/uL Hgb (14.0-18.0) g/dL Hct (42-52) % MCV (80-100) fL MCH (25-34) pg MCHC (32-36) g/dL RDW Std Deviation (36.4-46.3) fL RDW Coeff of Aleks (11.5-14.5) % Plt Count (130-400) K/uL MPV (7.4-10.4) fL Immature Gran % (Auto) % Neut % (Auto) % Lymph % (Auto) % [place] % (Auto) % Eos % (Auto) % Baso % (Auto) % Neut # (Auto) (1.4-6.5) K/uL Lymph # (Auto) (1.2-3.4) K/uL [place] # (Auto) (0.11-0.59) K/uL Eos # (Auto) (0-0.5) K/uL Baso # (Auto) (0-0.2) K/uL Immature Gran # (Auto) (0.00-0.02) K/uL Platelet Estimate (Normal) RBC Morphology PT (9.0-12.0) Seconds INR (0.9-1.1) APTT (21.0-31.0) Seconds PTT Ratio Sodium 129 L (136-145) mmol/L Potassium 3.9 (3.5-5.1) mmol/L Chloride 95 L (98-107) mmol/L Carbon Dioxide 29 (21-32) mmol/L Anion Gap 5.0 (3-11) BUN 16 (7-18) mg/dl Creatinine 1.41 H (0.6-1.4) mg/dl Est Cr Clr Drug Dosing 43.2 ml/min Est GFR ( Amer) 54.9 ml/min Est GFR (Non-Af Amer) 47.4 ml/min BUN/Creatinine Ratio 11.5 (10-20) Glucose 90 (70-99) mg/dl POC Glucose (70-99) mg/dl Estimat Average Glucose mg/dl Hemoglobin A1c (4.5-5.6) % Osmolality (280-300) mOsm/kg Lactate (0.4-2.0) mmol/L Calcium 7.7 L (8.5-10.1) mg/dl Magnesium 1.8 (1.8-2.4) mg/dl Total Bilirubin 1.1 H (0.2-1) mg/dl Direct Bilirubin 0.5 H (0-0.2) mg/dl AST 69 H (15-37) U/L ALT 41 (12-78) U/L Alkaline Phosphatase 134 H (45-117) U/L Troponin I 0.061 H* (0-0.045) ng/ml Total Protein 6.6 (6.4-8.2) gm/dl Albumin 2.4 L (3.4-5.0) gm/dl Lipase 52 L (73-393) U/L TSH Cancelled 2.320 (0.300-4.500) uIu/ml Urine Color Urine Appearance (Clear) Urine pH (4.5-7.5) Ur Specific [place] (1.000-1.030) Urine Protein (Negative) Urine Glucose (UA) (Negative) Urine Ketones (Negative) Urine Blood (Negative) Urine Nitrite (Negative) Urine Bilirubin (Negative) Urine Urobilinogen (Negative) Ur Leukocyte Esterase (Negative) Urine Osmolality (500-800) mOsm/kg Ur Random Sodium mmol/L Digoxin (0.8-2.0) ng/ml COVID-19 Eval Order Covid19 at [facility] SARS-CoV-2 (PCR) (Negative) 02/15/21 Range/Units 03:33 WBC (4.8-10.8) K/uL RBC (4.7-6.1) M/uL Hgb (14.0-18.0) g/dL Hct (42-52) % MCV (80-100) fL MCH (25-34) pg MCHC (32-36) g/dL RDW Std Deviation (36.4-46.3) fL RDW Coeff of Aleks (11.5-14.5) % Plt Count (130-400) K/uL MPV (7.4-10.4) fL Immature Gran % (Auto) % Neut % (Auto) % Lymph % (Auto) % [place] % (Auto) % Eos % (Auto) % Baso % (Auto) % Neut # (Auto) (1.4-6.5) K/uL Lymph # (Auto) (1.2-3.4) K/uL [place] # (Auto) (0.11-0.59) K/uL Eos # (Auto) (0-0.5) K/uL Baso # (Auto) (0-0.2) K/uL Immature Gran # (Auto) (0.00-0.02) K/uL Platelet Estimate (Normal) RBC Morphology PT 15.4 H (9.0-12.0) Seconds INR 1.6 H (0.9-1.1) APTT 38.0 H (21.0-31.0) Seconds PTT Ratio 1.4 Sodium (136-145) mmol/L Potassium (3.5-5.1) mmol/L Chloride (98-107) mmol/L Carbon Dioxide (21-32) mmol/L Anion Gap (3-11) BUN (7-18) mg/dl Creatinine (0.6-1.4) mg/dl Est Cr Clr Drug Dosing ml/min Est GFR ( Amer) ml/min Est GFR (Non-Af Amer) ml/min BUN/Creatinine Ratio (10-20) Glucose (70-99) mg/dl POC Glucose (70-99) mg/dl Estimat Average Glucose mg/dl Hemoglobin A1c (4.5-5.6) % Osmolality (280-300) mOsm/kg Lactate (0.4-2.0) mmol/L Calcium (8.5-10.1) mg/dl Magnesium (1.8-2.4) mg/dl Total Bilirubin (0.2-1) mg/dl Direct Bilirubin (0-0.2) mg/dl AST (15-37) U/L ALT (12-78) U/L Alkaline Phosphatase (45-117) U/L Troponin I (0-0.045) ng/ml Total Protein (6.4-8.2) gm/dl Albumin (3.4-5.0) gm/dl Lipase (73-393) U/L TSH (0.300-4.500) uIu/ml Urine Color Urine Appearance (Clear) Urine pH (4.5-7.5) Ur Specific [place] (1.000-1.030) Urine Protein (Negative) Urine Glucose (UA) (Negative) Urine Ketones (Negative) Urine Blood (Negative) Urine Nitrite (Negative) Urine Bilirubin (Negative) Urine Urobilinogen (Negative) Ur Leukocyte Esterase (Negative) Urine Osmolality (500-800) mOsm/kg Ur Random Sodium mmol/L Digoxin (0.8-2.0) ng/ml COVID-19 Eval Order SARS-CoV-2 (PCR) (Negative) Diagnostic Findings CTAP: 1. Moderate diffuse colonic wall thickening with pericolonic fat stranding consistent with a nonspecific colitis. This favors an infectious or inflammatory process. 2. Status post Whipple procedure. No change in the dilated residual main pancreatic duct. 3. Nonspecific 4.2 cm focal fluid collection within the right subhepatic location. This could represent a pseudocyst. Follow-up recommended to ensure resolution. 4. Colonic diverticulosis. No evidence for acute diverticulitis. Head CT: IMPRESSION: There is no hemorrhage, mass effect, or evidence of acute territorial ischemia by CT criteria. CXR: Stable mild cardiomegaly. Code Status & VTE Plan VTE Prophylaxis Plan VTE Prophylaxis will be ordered: Yes Supervising Physician Co-Signing Physician Notes I have seen and examined the patient and discussed the management with Meseret Ren PA-C. Consult for diarrhea/colitis on imaging. Has had chronic diarrhea since prior whipple surgery, recent worsening that he states he believes is after recent medication use (lasix he states). Admitted for weakness- feeling better today, has an appetite. Acute worsening of diarrhea he reports remains floaty type diarrhea, without evidence of bleeding. Labs reviewed, images reviewed Agree with further plan of care as per the assessment and plan below.
[2021-02-15] MEDS ORDERED: CONSULT PHARMACY STA (13:28)
--- NOTE | 2021-02-15 13:28 | Electrocardiogram Report ---
Test Reason : Blood Pressure : / mmHG Vent. Rate : 084 BPM Atrial Rate : 092 BPM P-R Int : 000 ms QRS Dur : 080 ms QT Int : 338 ms P-R-T Axes : 000 -05 073 degrees QTc Int : 399 ms Atrial fibrillation with premature ventricular or aberrantly conducted complexes Nonspecific T wave abnormality Abnormal ECG When compared with ECG of 26-JAN-2020 15:29, Nonspecific T wave abnormality, worse in Lateral leads Confirmed by Elver Urbina ([id number]) on 02/15/2021 1:27:53 PM Referred By: REFERRED SELF Confirmed By:Elver Urbina
[2021-02-15] MEDS ORDERED: SODIUM CHLORIDE 0.9% 1000ML 1,000 ML IV ONE (13:30)
[2021-02-15] MEDS ORDERED: PIPERACILL/TAZOBAC CONSULT ACTIVE PRN (13:40)
[2021-02-15] MEDS ORDERED: PIPERACILLIN/TAZOBACTAM 3.375 GM in DEXTROSE 5% 100 ML IV ONE (13:45)
--- NOTE | 2021-02-15 14:18 | Hospitalist Progress Note ---
Date of Service February 15, 2021 Assessment & Plan (1) Hyponatremia: Colitis -CT ABD:Moderate diffuse colonic wall thickening with pericolonic fat stranding consistent with a nonspecific colitis. This favors an infectious or inflammatory process. Status post Whipple procedure. No change in the dilated residual main pancreatic duct. Nonspecific 4.2 cm focal fluid collection within the right subhepatic location. This could represent a pseudocyst. Follow-up recommended to ensure resolution. Colonic diverticulosis. No evidence for acute diverticulitis. -Patient states having chronic diarrhea after having Whipple surgery -Blood cultures obtained -Stool for C. difficile pending Stool culture negative IV fluids as needed Empirically started on Zosyn GI consulted for input Febrile today Thrombocytopenia No acute bleeding issues Monitor platelets Mild Troponin Likely Type II DC/FRANKO Denies any anginal symptoms EKG shows nonspecific T wave abnormality Obtain resting ECHO Acute kidney injury Creatinine 1.4 Avoid nephrotoxic agents as able Monitor renal function Gentle IV fluids given H/O CHF Hold lisinopril Chronic diastolic heart failure EF 50%, TTE 2020 Valvular heart disease (moderate MR, severe TR) No signs of exacerbation Monitor volume status Continue home medications Atrial fibrillation Subtherapeutic INR INR: 1.6 Continue metoprolol Continue Coumadin--adjust dose as needed Following dose decreased secondary to relatively low blood pressure, adjust dose as able HTN BP relatively low Likely due to dehydration Hold diuretics Hyponatremia Likely secondary to diuretics, dehydration from diarrhea Monitor sodium levels closely Gentle IV fluids Pancreatic cancer S/P Partial Whipple procedure 2009 GI consulted GERD on PPI DM II HbA1c of 6.27 April 2020 Hold p.o. meds Continue insulin therapy while hospitalized Monitor BGs DVT Px: Coumadin Code Status Full code Disposition PT/OT prior to discharge Admission and Anticipated Discharge Date Admission Date: February 15, 2021 Subjective Patient is seen and examined at bedside Nausea much improved States feeling extremely tired and weak States having mild lower abdominal discomfort Reports chronic diarrhea unchanged as per patient Denies chest pain, dyspnea, dizziness, nausea, abdominal pain Offers no other complaints Febrile today Review of Systems Review of Systems: All systems reviewed & are unremarkable except as noted in HPI & below Physical Exam Physical Exam: Physical Exam: Vitals signs as noted above General Appearance:Moderately built and nourished, no apparent distress Head: normocephalic, Atraumatic Eyes: normal inspection, EOMI Neck: supple, Trachea midline Respiratory/Chest: Decreased breath sounds, CTA Cardiovascular: Irregularly irregular, No murmur Abdomen/GI:Soft, Mild lower abd tender, Bowel sounds present Extremities/Musculoskeletal:normal inspection, no edema Neurologic/Psych:AAOX3, grossly no focal neurological deficits Skin: normal color, warm Results & Data Results & Data ([facility]) Vital Signs (Past 12 Hours) Vital Signs Temp Pulse Pulse Resp BP BP Pulse Ox 02/15/21 11:36 38.8 C H 86 20 114/65 98 02/15/21 11:04 37.7 C H 89 16 136/73 99 02/15/21 06:29 76 20 116/60 96 02/15/21 05:31 78 18 107/90 98 02/15/21 04:40 83 20 114/62 97 02/15/21 03:48 85 20 128/68 99 02/15/21 03:17 36.6 C 75 20 94/56 L 97 Laboratory Results Short CBC 02/15/21 Range/Units 04:34 WBC 6.22 (4.8-10.8) K/uL Hgb 10.5 L (14.0-18.0) g/dL Hct 30.4 L (42-52) % Plt Count 87 L (130-400) K/uL BMP 02/15/21 03:34 Sodium 129 L Potassium 3.9 Chloride 95 L Carbon Dioxide 29 BUN 16 Creatinine 1.41 H Glucose 90 Calcium 7.7 L Cardiac Enzymes 02/15/21 02/15/21 Range/Units 03:34 08:09 Troponin I 0.061 H* 0.064 H* (0-0.045) ng/ml Liver Function 02/15/21 Range/Units 03:34 Total Bilirubin 1.1 H (0.2-1) mg/dl Direct Bilirubin 0.5 H (0-0.2) mg/dl AST 69 H (15-37) U/L ALT 41 (12-78) U/L Alkaline Phosphatase 134 H (45-117) U/L Albumin 2.4 L (3.4-5.0) gm/dl Urine 02/15/21 Range/Units 05:08 Urine Color Yellow Urine Appearance Clear (Clear) Urine pH 6.0 (4.5-7.5) Ur Specific [place] 1.010 (1.000-1.030) Urine Protein Negative (Negative) Urine Glucose (UA) Negative (Negative)
[2021-02-15] MEDS ORDERED: DIGOXIN 0.125 MG TAB PO SCH (16:00)
[2021-02-15] MEDS ORDERED: WARFARIN SOD 5 MG TAB PO ONE (16:00)
[2021-02-15] MEDS: PIPERACILLIN/TAZOBACTAM 3.375 GM in DEXTROSE 5% 100 ML IV SCH (17:41)
[2021-02-16] MEDS: PIPERACILLIN/TAZOBACTAM 3.375 GM in DEXTROSE 5% 100 ML IV SCH ×2 (02:47→10:14)
--- NOTE | 2021-02-16 03:36 | Communication Note ---
Date of Service: February 16, 2021 Notified by RN of patient complaint of persistent diarrhea with last BM being black. Intermittent occurrence at home since 2009 since Whipple surgery as per patient. AP Dark stool Rule out GI bleed Stool FOBT Will relay to AM provider.
[2021-02-16 07:12] LABS: Hematocrit (blood only) 32.9 % (42-52); Hemoglobin 11.4 g/dL (14.0-18.0); Mean Corpuscular Hemoglobin 27.6 pg (25-34); Mean Corpuscular Hgb Conc 34.7 g/dL (32-36); Mean Corpuscular Volume 79.7 fL (80-100); RDW Coefficient of Variation 15.4 % (11.5-14.5); RDW Standard Deviation 45.5 fL (36.4-46.3); Red Blood Count 4.13 M/uL (4.7-6.1)
[2021-02-16 07:19] LABS: INR 1.9 (0.9-1.1); Prothrombin Time 18.4 Seconds (9.0-12.0)
[2021-02-16 07:40] LABS: Albumin Level 2.2 gm/dl (3.4-5.0); BUN Creatinine Ratio 12.7 (10-20); Calcium 7.7 mg/dl (8.5-10.1); Creatinine Clr Calc Pharmacy 46.5 ml/min; Est GFR (Non-African American) 51.8 ml/min; Magnesium 2.5 mg/dl (1.8-2.4); Potassium 3.4 mmol/L (3.5-5.1)
[2021-02-16 07:41] LABS: Basophils # (auto) 0.01 K/uL (0-0.2); Basophils % (auto) 0.2 %; Eosinophils # (auto) 0.01 K/uL (0-0.5); Eosinophils % (auto) 0.2 %; Immature Granulocytes # (auto) 0.01 K/uL (0.00-0.02); Immature Granulocytes % (auto) 0.2 %; Lymphocytes # (auto) 0.93 K/uL (1.2-3.4); Lymphocytes % (auto) 19.8 %; Mean Platelet Volume 10.4 fL (7.4-10.4); Monocytes % (auto) 10.6 %; Neutrophils # (auto) 3.24 K/uL (1.4-6.5); Platelet Count 88 K/uL (130-400)
[2021-02-16 07:43] LABS: Albumin Globulin Ratio 0.6 (0.9-2); Globulin 3.8 gm/dl (2.5-4.0)
[2021-02-16] MEDS: METOPROLOL SUCC 25MG EXT REL TAB PO SCH (08:01)
[2021-02-16] MEDS: PANTOprazole 40 MG TAB PO SCH (08:01)
[2021-02-16] MEDS: INSULIN ASPART 100 UNITS/ML 3 ML PEN SC SCH ×2 (08:02→12:22)
--- NOTE | 2021-02-16 09:15 | Gastroenterology Progress Note ---
Date of Service February 16, 2021 Assessment & Plan (1) Colitis: 80-year-old male s/p Whipple 2010 for pancreatic CA, admitted with acute on chronic diarrhea, weakness, hyponatremia, and CT findings suggestive of colitis, and nonspecific fluid collection in the subhepatic region. Stool cultures neg. Consider diff including infectious vs inflammatory vs colopathy from CHF. Today overall he is feeling much better and diarrhea seems to resolved. - Await c diff testing -If infectious etiology ruled out, and diarrhea returns, as his chronic diarrhea s/p Billroth II surgery was not previously helped by pancreatic enzymes, Imodium or Questran; am not sure that repeat trial of pancreatic enzymes would be beneficial. I'm not sure if Lomotil has been tried. - Supportive care with hydration, diet as tolerated - His subhepatic fluid collection is of unclear etiology; would recommend foll ow-up with repeat imaging after discharge Thank you for allowing us to participate in the care of this patient. Please call with any acute changes, questions or concerns. Please see addendum below wi th additional recommendation from my supervising physician. Admission and Anticipated Discharge Date Admission Date: February 15, 2021 Supervising Physician Co-Signing Physician Notes I have seen and examined the patient. Patient reports no further diarrhea today, feeling better. Slight fever overnite- stated on zosyn. Reports he does not want an outpatient in 2 months. PE - unchanged- benign abdomen Reports he thinks his worsening of diarrhea was from a recent get together this past sunday that he thinks is food related. Would consider a brief course of abx (10 days) as an outpatient givne findings of fever, subhepatic fluid collection which appears to be chronic and also colitis on imaging for presumed infectious colitis. His reported hemoccult + stool can be from colitis. Okay to dc home from a gi perspective when tolerating po and given no further episodes of diarrhea. Subjective Patient seen and examined, chart reviewed. Today he tolerated a regular breakfast. Had a formed stool today, none overnight. Feels much better, states he is ready to go home. Denies diarrhea, abdominal pain, hematemesis, melena or hematochezia, fevers or chills, chest pain or shortness of breath. Review of Systems Review of Systems: All systems reviewed & are unremarkable except as noted in HPI & below Physical Exam Constitutional: WD/WN, vitals as above Eyes: + anicteric sclerae Neck: trachea midline Respiratory: normal respiratory effort Cardiovascular: Rate/Rhythm: regular rate and regular rhythm Gastrointestinal (Abdomen): normal bowel sounds, soft, nontender, no hepatosplenomegaly Skin: no rashes, warm and dry Psychiatric: A+Ox3, euthymic affect Results & Data ([facility]) Vital Signs (Past 12 Hours) Vital Signs Temp Pulse Pulse Resp BP BP Pulse Ox 02/16/21 07:31 36.9 C 100 H 20 112/65 97 02/16/21 07:15 90 02/16/21 03:00 36.9 C 76 20 107/71 98 02/16/21 00:15 69 02/15/21 22:53 36.8 C 86 18 97/56 L 97 Laboratory Results 02/16/21 02/16/21 02/16/21 Range/Units 08:00 08:00 07:23 WBC (4.8-10.8) K/uL RBC (4.7-6.1) M/uL Hgb (14.0-18.0) g/dL Hct (42-52) % MCV (80-100) fL MCH (25-34) pg MCHC (32-36) g/dL RDW Std Deviation (36.4-46.3) fL RDW Coeff of Aleks (11.5-14.5) % Plt Count (130-400) K/uL MPV (7.4-10.4) fL Immature Gran % (Auto) % Neut % (Auto) % Lymph % (Auto) % [place] % (Auto) % Eos % (Auto) % Baso % (Auto) % Neut # (Auto) (1.4-6.5) K/uL Lymph # (Auto) (1.2-3.4) K/uL [place] # (Auto) (0.11-0.59) K/uL Eos # (Auto) (0-0.5) K/uL Baso # (Auto) (0-0.2) K/uL Immature Gran # (Auto) (0.00-0.02) K/uL PT (9.0-12.0) Seconds INR (0.9-1.1) Sodium (136-145) mmol/L Potassium (3.5-5.1) mmol/L Chloride (98-107) mmol/L Carbon Dioxide (21-32) mmol/L Anion Gap (3-11) BUN (7-18) mg/dl Creatinine (0.6-1.4) mg/dl Est Cr Clr Drug Dosing ml/min Est GFR ( Amer) ml/min Est GFR (Non-Af Amer) ml/min BUN/Creatinine Ratio (10-20) Glucose (70-99) mg/dl POC Glucose 92 (70-99) mg/dl Calcium (8.5-10.1) mg/dl Magnesium (1.8-2.4) mg/dl Total Bilirubin (0.2-1) mg/dl AST (15-37) U/L ALT (12-78) U/L Alkaline Phosphatase (45-117) U/L Total Protein (6.4-8.2) gm/dl Albumin (3.4-5.0) gm/dl Globulin (2.5-4.0) gm/dl Albumin/Globulin Ratio (0.9-2) Stool Occult Bld Scrn Positive A (Negative) Stl C. diff Tox B Gene Pending Blood Type Antibody Screen 02/16/21 02/16/21 02/16/21 Range/Units 06:50 06:50 06:50 WBC (4.8-10.8) K/uL RBC (4.7-6.1) M/uL Hgb (14.0-18.0) g/dL Hct (42-52) % MCV (80-100) fL MCH (25-34) pg MCHC (32-36) g/dL RDW Std Deviation (36.4-46.3) fL RDW Coeff of Aleks (11.5-14.5) % Plt Count (130-400) K/uL MPV (7.4-10.4) fL Immature Gran % (Auto) % Neut % (Auto) % Lymph % (Auto) % [place] % (Auto) % Eos % (Auto) % Baso % (Auto) % Neut # (Auto) (1.4-6.5) K/uL Lymph # (Auto) (1.2-3.4) K/uL [place] # (Auto) (0.11-0.59) K/uL Eos # (Auto) (0-0.5) K/uL Baso # (Auto) (0-0.2) K/uL Immature Gran # (Auto) (0.00-0.02) K/uL PT 18.4 H (9.0-12.0) Seconds INR 1.9 H (0.9-1.1) Sodium 134 L (136-145) mmol/L Potassium 3.4 L (3.5-5.1) mmol/L Chloride 103 (98-107) mmol/L Carbon Dioxide 24 (21-32) mmol/L Anion Gap 7.0 (3-11) BUN 17 (7-18) mg/dl Creatinine 1.31 (0.6-1.4) mg/dl Est Cr Clr Drug Dosing 46.5 ml/min Est GFR ( Amer) 60.0 ml/min Est GFR (Non-Af Amer) 51.8 ml/min BUN/Creatinine Ratio 12.7 (10-20) Glucose 85 (70-99) mg/dl POC Glucose (70-99) mg/dl Calcium 7.7 L (8.5-10.1) mg/dl Magnesium 2.5 H (1.8-2.4) mg/dl Total Bilirubin 1.0 (0.2-1) mg/dl AST 59 H (15-37) U/L ALT 36 (12-78) U/L Alkaline Phosphatase 114 (45-117) U/L Total Protein 6.0 L (6.4-8.2) gm/dl Albumin 2.2 L (3.4-5.0) gm/dl Globulin 3.8 (2.5-4.0) gm/dl Albumin/Globulin Ratio 0.6 L (0.9-2) Stool Occult Bld Scrn (Negative) Stl C. diff Tox B Gene Blood Type B Positive Antibody Screen NEGATIVE 02/16/21 02/15/21 02/15/21 Range/Units 06:50 20:17 16:20 WBC 4.70 L (4.8-10.8) K/uL RBC 4.13 L (4.7-6.1) M/uL Hgb 11.4 L (14.0-18.0) g/dL Hct 32.9 L (42-52) % MCV 79.7 L (80-100) fL MCH 27.6 (25-34) pg MCHC 34.7 (32-36) g/dL RDW Std Deviation 45.5 (36.4-46.3) fL RDW Coeff of Aleks 15.4 H (11.5-14.5) % Plt Count 88 L (130-400) K/uL MPV 10.4 (7.4-10.4) fL Immature Gran % (Auto) 0.2 % Neut % (Auto) 69.0 % Lymph % (Auto) 19.8 % [place] % (Auto) 10.6 % Eos % (Auto) 0.2 % Baso % (Auto) 0.2 % Neut # (Auto) 3.24 (1.4-6.5) K/uL Lymph # (Auto) 0.93 L (1.2-3.4) K/uL [place] # (Auto) 0.50 (0.11-0.59) K/uL Eos # (Auto) 0.01 (0-0.5) K/uL Baso # (Auto) 0.01 (0-0.2) K/uL Immature Gran # (Auto) 0.01 (0.00-0.02) K/uL PT (9.0-12.0) Seconds INR (0.9-1.1) Sodium (136-145) mmol/L Potassium (3.5-5.1) mmol/L Chloride (98-107) mmol/L Carbon Dioxide (21-32) mmol/L Anion Gap (3-11) BUN (7-18) mg/dl Creatinine (0.6-1.4) mg/dl Est Cr Clr Drug Dosing ml/min Est GFR ( Amer) ml/min Est GFR (Non-Af Amer) ml/min BUN/Creatinine Ratio (10-20) Glucose (70-99) mg/dl POC Glucose 106 H 86 (70-99) mg/dl Calcium (8.5-10.1) mg/dl Magnesium (1.8-2.4) mg/dl Total Bilirubin (0.2-1) mg/dl AST (15-37) U/L ALT (12-78) U/L Alkaline Phosphatase (45-117) U/L Total Protein (6.4-8.2) gm/dl Albumin (3.4-5.0) gm/dl Globulin (2.5-4.0) gm/dl Albumin/Globulin Ratio (0.9-2) Stool Occult Bld Scrn (Negative) Stl C. diff Tox B Gene Blood Type Antibody Screen 02/15/21 02/15/21 Range/Units 13:50 11:30 WBC (4.8-10.8) K/uL RBC (4.7-6.1) M/uL Hgb (14.0-18.0) g/dL Hct (42-52) % MCV (80-100) fL MCH (25-34) pg MCHC (32-36) g/dL RDW Std Deviation (36.4-46.3) fL RDW Coeff of Aleks (11.5-14.5) % Plt Count (130-400) K/uL MPV (7.4-10.4) fL Immature Gran % (Auto) % Neut % (Auto) % Lymph % (Auto) % [place] % (Auto) % Eos % (Auto) % Baso % (Auto) % Neut # (Auto) (1.4-6.5) K/uL Lymph # (Auto) (1.2-3.4) K/uL [place] # (Auto) (0.11-0.59) K/uL Eos # (Auto) (0-0.5) K/uL Baso # (Auto) (0-0.2) K/uL Immature Gran # (Auto) (0.00-0.02) K/uL PT (9.0-12.0) Seconds INR (0.9-1.1) Sodium 128 L (136-145) mmol/L Potassium (3.5-5.1) mmol/L Chloride (98-107) mmol/L Carbon Dioxide (21-32) mmol/L Anion Gap (3-11) BUN (7-18) mg/dl Creatinine (0.6-1.4) mg/dl Est Cr Clr Drug Dosing ml/min Est GFR ( Amer) ml/min Est GFR (Non-Af Amer) ml/min BUN/Creatinine Ratio (10-20) Glucose (70-99) mg/dl POC Glucose 139 H (70-99) mg/dl Calcium (8.5-10.1) mg/dl Magnesium (1.8-2.4) mg/dl Total Bilirubin (0.2-1) mg/dl AST (15-37) U/L ALT (12-78) U/L Alkaline Phosphatase (45-117) U/L Total Protein (6.4-8.2) gm/dl Albumin (3.4-5.0) gm/dl Globulin (2.5-4.0) gm/dl Albumin/Globulin Ratio (0.9-2) Stool Occult Bld Scrn (Negative) Stl C. diff Tox B Gene Blood Type Antibody Screen
--- NOTE | 2021-02-16 10:14 | Hospitalist Progress Note ---
Date of Service February 16, 2021 Assessment & Plan (1) Hyponatremia: Colitis -CT ABD:Moderate diffuse colonic wall thickening with pericolonic fat stranding consistent with a nonspecific colitis. This favors an infectious or inflammatory process. Status post Whipple procedure. No change in the dilated residual main pancreatic duct. Nonspecific 4.2 cm focal fluid collection within the right subhepatic location. This could represent a pseudocyst. Follow-up recommended to ensure resolution. Colonic diverticulosis. No evidence for acute diverticulitis. -Patient states having chronic diarrhea after having Whipple surgery -Blood cultures NGTD -Stool for C. difficile pending Stool culture negative IV fluids Empirically started on Zosyn GI consulted for input Febrile at 1900 5/25 Thrombocytopenia No acute bleeding issues Monitor platelets Mild Troponin Likely Type II AZ/FRANKO Denies any anginal symptoms EKG shows nonspecific T wave abnormality Obtain resting ECHO Acute kidney injury Creatinine 1.4 Avoid nephrotoxic agents as able Monitor renal function Gentle IV fluids given H/O CHF Hold lisinopril Chronic diastolic heart failure EF 50%, TTE 2020 Valvular heart disease (moderate MR, severe TR) No signs of exacerbation Monitor volume status Continue home medications Atrial fibrillation Subtherapeutic INR INR: 1.6 Continue metoprolol Continue Coumadin--adjust dose as needed Following dose decreased secondary to relatively low blood pressure, adjust dose as able HTN BP relatively low Likely due to dehydration Hold diuretics Hyponatremia Likely secondary to diuretics, dehydration from diarrhea Monitor sodium levels closely Gentle IV fluids Pancreatic cancer S/P Partial Whipple procedure 2009 GI consulted GERD on PPI DM II HbA1c of 6.27 April 2020 Hold p.o. meds Continue insulin therapy while hospitalized Monitor BGs DVT Px: Coumadin Code Status Full code Disposition PT/OT prior to discharge, DC 1-2 days ROS-No Headache, No Visual Changes, No Nausea, No Vomiting, No Fever, No Chills, No Neck Pain or Stiffness, No Chest Pain, No Palpitations, No SOB, No ARROYO, No Cough, No Sputum, No Wheezing, No Abdominal Pain, No Diarrhea, No Hematemesis, No Hemoptysis, No Unexpected Weight Loss, No Flank pain, No Melena, No Hematoch ezia, No Frequency, No Urgency, No Burning, No Hematuria, No Rashes, No Diaphoresis. Appetite is Normal Physical Exam Gen-AAO x 3, NAD, Afebrile Head-NCAT, EOMI, PERRLA, Anicteric Sclera, No Posterior Pharyngeal Erythema Neck-Supple, No JVD, No Thyromegaly, No Masses, No LAD, No Bruits Lungs-Clear to Auscultation Bilaterally, No Rales, No Rhonchi, No Wheezing, No Crepitus Chest-No S4, +S1, +S2, No S3, No Murmurs, No Rubs, No Gallops, No Ectopy Abdomen-Soft, Bowel Sounds Present, Non Tender, Non Distended, No Hepatomegaly, No Splenomegaly, No Palpable Masses, No Rebound, No Rigidity, No Guarding Musculoskeletal-Full Range of Motion Bilaterally, No CVAT Extremities-No Cyanosis, No Clubbing, No Edema Nuero-Cranial Nerves II-XII grossly intact, Motor WNL, DTRs WNL, Strength WNL, Non Focal Psych-Normal Mood Admission and Anticipated Discharge Date Admission Date: February 15, 2021 Results & Data Results & Data ([facility]) Vital Signs (Past 12 Hours) Vital Signs Temp Pulse Pulse Resp BP BP Pulse Ox 02/16/21 07:31 36.9 C 100 H 20 112/65 97 02/16/21 07:15 90 02/16/21 03:00 36.9 C 76 20 107/71 98 02/16/21 00:15 69 02/15/21 22:53 36.8 C 86 18 97/56 L 97
--- NOTE | 2021-02-16 13:02 | Discharge Summary ---
Date of Service February 16, 2021 Admission HPI Per Admitting Provider This is a 80-year-old male with history of chronic diastolic heart failure, A. fib on Coumadin, HTN, HLD, valvular heart disease, pancreatic cancer SP partial Whipple 2010, IBS diarrhea, GERD, T2DM, CKD, chronic anemia, past tobacco abuse, history of gastrojejunal anastomotic ulcer, admitted today after presenting with worsening of his chronic lower abdominal discomfort and diarrhea, along with weakness. Patient states he was too weak to get up and so his took him to the hospital. On arrival, found to have hyponatremia; Hgb improved from baseline at 10.5. CTAP with diffuse colonic thickening c/w nonspecific colitis and a nonspecific 4.2 cm focal fluid collection within the right subhepatic location. Stool culture neg; c diff pending. He states ever since his whipple he's had chronic nonbloody diarrhea several times a day. He states he was tried on pancreatic enzymes which were not helpful. Denies melena, hematochezia, hematemesis fevers or chills, chest pain or shortness of breath, change in appetite. No recent sick contacts, he is on well water. Lasix has been added recently, and he feels that this may have contributed to his weakness. Last EGD 05/25/2020: Large inlet patch x 2 in proximal esophagus. The GE junction was unremarkable. There was evidence of a prior gastro jejunostomy. The stomach mucosa was normal. Random stomach biopsies were done. The previously placed Padlock clip was seen to be embedded in the mucosa at the anastomosis. There was no active scar or anastomotic stricture. The small intestine was normal. Last colonoscopy 05/25/2020: Hemorrhoids found on perianal exam. - Diverticulosis in the entire examined colon. - One 2 mm polyp in the ascending colon, removed with a cold snare. Complete resection. Polyp tissue not retrieved. - The examination was otherwise normal. Admission Exam Per Admitting Provider GENERAL: Slightly uncomfortable, pleasant, no respiratory distress SKIN: Pallor , warm HEENT: Alopecia, pale palpebral conjunctivae, no ptosis, dry buccal mucosa NECK : Supple, no tenderness CHEST : Decreased breath sounds, no tenderness HEART : Irregular, apical systolic murmur ABDOMEN: Some distention, hypogastric tenderness EXTREMITIES : No LE swelling/tenderness, no other conspicuous deformities noted NEUROLOGIC : Coherent, no facial asymmetry, no other gross focality Principal Diagnosis Hyponatremia: Colitis Thrombocytopenia Acute kidney injury Chronic diastolic heart failure Atrial fibrillation HTN Hyponatremia Pancreatic cancer GERD DM II Discharge Exam See Below Discharge Data Allergies Allergy/AdvReac Type Severity Reaction Status Date / Time No Known Allergies Allergy Unknown Verified 02/15/21 07:18 Consultations 02/15/21 05:35 ED Decision to Admit Stat 02/15/21 09:06 Consult Gastroenterology Routine Ordered Studies 02/15/21 03:32 CT head/brain wo con Urgent 02/15/21 06:09 CT abd pelvis wo con Urgent Current Diagnoses Hypo-osmolality and hyponatremia (02/15/21) Noninfective gastroenteritis and colitis, unspecified (02/15/21) Allergies No Known Allergies Allergy (Unknown, Verified 02/15/21 07:18) Height/Weight/Isolation Height 5 ft 9 in Weight 73.5 kg Chemistry 02/15/21 02/15/21 02/16/21 03:34 13:50 06:50 Sodium 129 L 128 L 134 L Potassium 3.9 3.4 L Chloride 95 L 103 Carbon Dioxide 29 24 Anion Gap 5.0 7.0 BUN 16 17 Creatinine 1.41 H 1.31 Glucose 90 85 Urinalysis 02/15/21 05:08 Urine Color Yellow Urine Appearance Clear Urine pH 6.0 Ur Specific [place] 1.010 Urine Protein Negative Urine Glucose (UA) Negative Urine Ketones Trace H Urine Blood Negative Urine Nitrite Negative Urine Bilirubin Negative Microbiology 02/15/21 14:03 Blood Aerobic Blood Culture - Pending 02/15/21 14:03 Blood Anaerobic Blood Culture - Pending 02/15/21 13:50 Blood Aerobic Blood Culture - Pending 02/15/21 13:50 Blood Anaerobic Blood Culture - Pending Hospital Course (1) Hyponatremia: Infectious Colitis-Heme Pos Colitis, will treat c PO augmentin -CT ABD:Moderate diffuse colonic wall thickening with pericolonic fat stranding consistent with a nonspecific colitis. This favors an infectious or inflammatory process. Status post Whipple procedure. No change in the dilated residual main pancreatic duct. Nonspecific 4.2 cm focal fluid collection within the right subhepatic location. This could represent a pseudocyst. Follow-up recommended to ensure resolution. Colonic diverticulosis. No evidence for acute diverticulitis. -Patient states having chronic diarrhea after having Whipple surgery -Blood cultures NGTD -Stool for C. difficile was negative Stool culture negative IV fluids Thrombocytopenia No acute bleeding issues Monitor platelets Mild Troponin Likely Type II MS/FRANKO Denies any anginal symptoms EKG shows nonspecific T wave abnormality ECHO EF 50-55% Acute kidney injury Gentle IV fluids given H/O CHF Resume lisinopril on DC Chronic diastolic heart failure EF 50-55%, TTE done yesterday Valvular heart disease (moderate MR, severe TR) No signs of exacerbation Monitor volume status Continue home medications Atrial fibrillation Continue metoprolol Continue Coumadin--adjust dose as needed Following dose decreased secondary to relatively low blood pressure, adjust dose as able HTN BP good Hyponatremia improved, Push diet Pancreatic cancer S/P Partial Whipple procedure 2009 GERD on PPI DM II HbA1c of 6.27 April 2020 Hold p.o. meds Continue insulin therapy while hospitalized Monitor BGs DVT Px: Coumadin Code Status Full code Disposition DC home ROS-No Headache, No Visual Changes, No Nausea, No Vomiting, No Fever, No Chills, No Neck Pain or Stiffness, No Chest Pain, No Palpitations, No SOB, No ARROYO, No Cough, No Sputum, No Wheezing, No Abdominal Pain, No Diarrhea, No Hematemesis, No Hemoptysis, No Unexpected Weight Loss, No Flank pain, No Melena, No Hematochezia, No Frequency, No Urgency, No Burning, No Hematuria, No Rashes, No Diaphoresis. Appetite is Normal Physical Exam Gen-AAO x 3, NAD, Afebrile Head-NCAT, EOMI, PERRLA, Anicteric Sclera, No Posterior Pharyngeal Erythema Neck-Supple, No JVD, No Thyromegaly, No Masses, No LAD, No Bruits Lungs-Clear to Auscultation Bilaterally, No Rales, No Rhonchi, No Wheezing, No Crepitus Chest-No S4, +S1, +S2, No S3, No Murmurs, No Rubs, No Gallops, No Ectopy Abdomen-Soft, Bowel Sounds Present, Non Tender, Non Distended, No Hepatomegaly, No Splenomegaly, No Palpable Masses, No Rebound, No Rigidity, No Guarding Musculoskeletal-Full Range of Motion Bilaterally, No CVAT Extremities-No Cyanosis, No Clubbing, No Edema Nuero-Cranial Nerves II-XII grossly intact, Motor WNL, DTRs WNL, Strength WNL, Non Focal Psych-Normal Mood Total Time Total Time Spent Total Time Spent (In Minutes): 45 mins Discharge Plan Discharge Items Patient Disposition: Home - Self-Care Reason For Visit: HYPONATREMIA Discharge Diagnosis: Hyponatremia: Colitis Thrombocytopenia Acute kidney injury Chronic diastolic heart failure Atrial fibrillation HTN Hyponatremia Pancreatic cancer GERD DM II Condition on Discharge: Good Health Concerns: Nutrition Activity: Resume your previous activity Lifting: Gradually increase as tolerated Bathing: No limitations Exercise/Sports: Gradually increase as tolerated Driving/Machine Use: none Weightbearing: Full weightbearing Non-emergency contact: Primary Care Provider Call non-emergency contact if: you have any medication questions Follow-up/Referrals: Jordan Grant MD [Primary Care Provider] - (Date & Time 02/22/2021 11:20 AM Provider Jordan Grant MD [facility] ) Diet: Carb Consistent or DM2 and Heart Healthy Addtl Attending Provider Instructions: None Pending Studies at Discharge: No Stand-Alone Forms: My [employer], Smoking Cessation Medications and DC Order Prescriptions: New warfarin [Jantoven] 2.5 mg Tablet 2.5 mg PO DAILY@1600 Qty: 30 RF: 0 metoprolol succinate 25 mg Tablet Extended Release 24 Hr 25 mg PO QAM Qty: 30 RF: 0 amoxicillin-pot clavulanate [Augmentin] 875-125 mg Tablet 1 tab PO BID Qty: 20 RF: 0 furosemide [Lasix] 40 mg tablet 40 mg PO QAM Qty: 60 RF: 0 Continued glimepiride 2 mg tablet 2 mg PO DAILY RF: 0 digoxin 125 mcg (0.125 mg) tablet 0.125 mcg PO DAILY RF: 0 loperamide [Imodium A-D] 2 mg Tablet 2 mg PO BID RF: 0 pantoprazole 40 mg tablet,delayed release (DR/EC) 40 mg PO DAILY RF: 0 ferrous sulfate 325 mg (65 mg iron) tablet 325 mg PO BID RF: 0 ascorbic acid (vitamin C) [Vitamin C] 500 mg Capsule, Extended Release 500 mg PO DAILY RF: 0 lisinopril 2.5 mg tablet 2.5 mg PO DAILY RF: 0 cholecalciferol (vitamin D3) 125 mcg (5,000 unit) capsule 5,000 unit PO DAILY RF: 0 Discontinued metoprolol succinate 100 mg tablet extended release 24 hr 150 mg PO DAILY RF: 0 furosemide 80 mg tablet 80 mg PO DAILY RF: 0 warfarin 5 mg tablet See Rx Instructions .ROUTE .COMPLEX RF: 0 Discharge Orders: Discharge Order (Routine); Ordered 02/16/21 Ordered By: Car Cantu/Other Patient Handouts: Managing Type 2 Diabetes, A1C Admission Data Admit Date/Time: 02/15/21 06:13 Attending Provider: Car Miguel Admit Provider: Gallo Cevallos Primary Care Provider: Jordan Grant Other Providers: Gallo Cevallos ; Glen Brannon ; Meseret Ren ; Wesley Castaneda ; Jayda Lopez ; Andriy Cortes ; Justo Shaikh ; Nancy Stroud ; Davon Rodgers ; Dariela Green ; Tessa Benson ; Tori Shannon ; Faye Balderas ; Ronni Orellana
--- NOTE | 2021-02-16 13:44 | Electrocardiogram Report ---
Test Reason : Blood Pressure : / mmHG Vent. Rate : 086 BPM Atrial Rate : 036 BPM P-R Int : 000 ms QRS Dur : 078 ms QT Int : 340 ms P-R-T Axes : 000 004 052 degrees QTc Int : 406 ms Atrial fibrillation with premature ventricular or aberrantly conducted complexes Low voltage QRS Septal infarct , age undetermined Abnormal ECG When compared with ECG of 15-FEB-2021 03:29, Nonspecific T wave abnormality now evident in Inferior leads Confirmed by Elver Urbina ([id number]) on 02/16/2021 1:44:30 PM Referred By: REFERRED SELF Confirmed By:Elver Urbina
[2021-02-16] MEDS ORDERED: WARFARIN SOD 2.5 MG TAB PO SCH (16:00)
[2021-02-16] MEDS ORDERED: AMOXICILLIN/CLAVULANATE 875 MG TAB PO SCH (21:00)
== END 2021-02-16 15:24 | disposition home or self-care (01) ==
LOC: ED 03:13 → 2N 06:13 → INTOOBSV 06:13 → SUATTDRO 06:13 → 2N 06:51

== ENCOUNTER 2022-12-12 18:45 | Observation (INO) ==
[2022-12-12 19:49] LABS: Basophils # (auto) 0.02 K/uL (0-0.2); Basophils % (auto) 0.3 %; Eosinophils # (auto) 0.07 K/uL (0-0.50); Eosinophils % (auto) 0.9 %; Hematocrit (blood only) 32.6 % (42.0-52.0); Hemoglobin 11.2 g/dl (14.0-18.0); Immature Granulocytes # (auto) 0.03 K/uL (0.01-0.20); Immature Granulocytes % (auto) 0.4 %; Lymphocytes # (auto) 0.54 K/uL (1.2-3.4); Mean Corpuscular Hemoglobin 30.4 pg (25.0-34.0); Mean Corpuscular Hgb Conc 34.4 g/dL (32.0-36.0); Mean Corpuscular Volume 88.6 fL (80.0-100.0); Mean Platelet Volume 10.6 fL (9.4-12.4); Monocytes # (auto) 0.51 K/uL (0.11-0.59); Monocytes % (auto) 6.6 %; Neutrophils # (auto) 6.54 K/uL (1.40-6.50); Neutrophils % (auto) 84.8 %; Platelet Count 147 K/uL (130-400); RDW Coefficient of Variation 13.6 % (11.5-14.5); RDW Standard Deviation 44.2 fL (36.4-46.3); Red Blood Count 3.68 M/uL (4.70-6.10); White Blood Count 7.71 K/ul (4.8-10.8)
[2022-12-12 20:02] LABS: Albumin Level 3.3 gm/dl (3.4-5.0); BUN Creatinine Ratio 13.4 (10-20); Bilirubin,Total 1.3 mg/dl (0.2-1.0); Calcium 8.5 mg/dl (8.5-10.1); Creatinine Clr Calc Pharmacy 50.9 ml/min; Est GFR (African American) 71.5 ml/min; Est GFR (Non-African American) 61.7 ml/min; Globulin 3.2 gm/dl (2.5-4.0); Potassium 3.1 mmol/L (3.5-5.1); Total Protein 6.5 gm/dl (6.0-8.3)
--- NOTE | 2022-12-12 21:07 | Emergency Department Note ---
Impression & Plan SBO (small bowel obstruction), Nonspecific colitis, History of pancreatic cancer ED Provider Note NAME: DOMENIC GUEVARA AGE: 82 SEX: M ARRIVES VIA: Walk-In INFORMANT: Patient ED PROVIDER(S): Raad Noe MD CHIEF COMPLAINT: SBO, referred. PLAN: Disposition: Admit MEDICAL DECISION MAKING: The patient is a pleasant 82-year-old gentleman with a past medical history of pancreatic cancer status post Whipple procedure approximately 13 years ago who presents to the emergency department referred by his PCP office for evaluation and admission after having outpatient CT imaging which demonstrated evidence of small bowel obstruction which was ordered/performed in the setting of the patient having acute onset upper abdominal pain and nausea last night that cont inued into today. The patient reports that he had his bowels several times but this was somewhat loose and mostly gas. He reports he did take Pepto-Bismol which she felt significantly improved his pain. Outpatient CT scan was performed this afternoon and demonstrated the following impression: "The pancreaticobiliary limb appears dilated and fluid-filled, measuring up to 3.7 cm in diameter. Findings are highly suspicious for obstruction of this loop, and this may be a closed loop type obstruction related to an internal hernia. Clinical and laboratory correlation will be essential. Surgical assessment is advised." as well as "...evidence of a nonspecific colitis of the left colon. This could be on an infectious, inflammatory, or ischemic basis. Correlate clinically." On my evaluation the patient is well-appearing in no acute distress, afebrile with stable vital signs. He has mild epigastric discomfort without discrete tenderness. He has no guarding or rebound. WBC and platelets within normal limits. H/H similar to prior range values. Chemistry without metabolic acidosis. Nonspecific LFT elevations are noted with total bilirubin 1.3 and direct bilirubin 0.5 and AST, ALT and alk phos 167, 81 and 198, respectively. Lipase is not elevated. UA without evidence of infection. COVID-19 RNA, JUAN DANIEL test was negative. Case was discussed with Dr. Tripp, general surgery on-call. Appreciate consultation/recommendation and agrees with admission for n.p.o. status and IV fluids at this time. Given no significant abdominal tenderness in the setting of the patient being afebrile without leukocytosis closed-loop obstruction is not likely at this time. Additionally, given the patient is minimally symptomatic G-tube can be deferred at this time. Case was discussed with Dr. Benito, [facility] hospitalist, who will evaluate the patient for admission. Triage Nursing notes reviewed and agree them. Prior/outside medical records reviewed Vital Signs: reviewed Differential diagnosis: See below. ER treatment provided: See below. Diagnostics interpreted by me: Cardiac Monitoring: An order for continuous cardiac monitoring was placed and demonstrated normal sinus rhythm, 60 bpm, no ectopy. Laboratory studies: See below Imaging studies: See below Consultation(s): Dr. Tripp, general surgery on-call. Dr. Benito, [facility] hospitalist. HPI: The patient is a pleasant 82-year-old gentleman with a past medical history of pancreatic cancer status post Whipple procedure approximately 13 years ago who presents to the emergency department referred by his PCP office for evaluation and admission after having outpatient CT imaging which demonstrated evidence of small bowel obstruction which was ordered/performed in the setting of the patient having acute onset upper abdominal pain and nausea last night that continued into today. The patient reports that he had his bowels several times but this was somewhat loose and mostly gas. He reports he did take Pepto- Bismol which she felt significantly improved his pain. Outpatient CT scan was performed this afternoon and demonstrated the following impression: "The pancreaticobiliary limb appears dilated and fluid-filled, measuring up to 3.7 cm in diameter. Findings are highly suspicious for obstruction of this loop, and this may be a closed loop type obstruction related to an internal hernia. Clinical and laboratory correlation will be essential. Surgical assessment is advised." as well as "...evidence of a nonspecific colitis of the left colon. This could be on an infectious, inflammatory, or ischemic basis. Correlate clinically." ROS: See above HPI for pertinent positives & negatives. A total of 10 systems reviewed and were otherwise negative. VITALS:See Below PHYSICAL EXAMINATION: GENERAL: Awake, alert, well-appearing, in no distress HENT: Normocephalic, atraumatic. Oropharynx with dry mucous membranes and otherwise unremarkable. EYES: Normal conjunctiva. Sclera non-icteric. NECK: Supple. No nuchal rigidity. FROM. No JVD. RESPIRATORY: Clear to auscultation. CARDIAC: Regular rate, normal rhythm. Extremities warm and well perfused. Pulses equal. ABDOMEN: Soft, non-distended. Mild epigastric discomfort without discrete tenderness to palpation. No rebound or guarding. No masses. RECTAL: Deferred. MUSCULOSKELETAL: Chest examination reveals no tenderness. The back is sy mmetrical on inspection without obvious abnormality. There is no CVA tenderness to palpation. No joint edema. LOWER EXTREMITIES: Calves are equal size bilaterally and non-tender. No edema. No discoloration. NEURO: Normal sensorium. No sensory or motor deficits noted. SKIN: No rash or jaundice noted. Raad Noe MD Past Med/Surg History Medical History (Updated 12/13/22 @ 01:19 by Raad Noe MD) Atrial fibrillation Diabetes mellitus, type II Diarrhea due to malabsorption Dyslipidemia GERD (gastroesophageal reflux disease) HTN (hypertension) Pancreatic cancer Venous insufficiency Surgical History H/O cataract removal with insertion of prosthetic lens H/O total hip arthroplasty History of pancreatectomy "with subtotal duodenectomy performed by Dr. 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: No Beliefs That Will Affect Care: None marital status: Current Living Situation: Spouse Current Living Situation Comment: Lives with on farm current occupational status: retired 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 [employer] How many Children do You have: 2 Other Information That Helps Us Care for You: No Feels Safe at Home: Yes Assistive Devices: Denture - Upper and Glasses Assistive Devices Comment: Partial upper dentures and reading glasses - both n ot present Allergies Allergies Allergy/AdvReac Type Severity Reaction Status Date / Time No Known Allergies Allergy Unknown Verified 12/12/22 21:32 Home Meds Home Medications Medication Instructions Recorded Confirmed digoxin 125 mcg (0.125 mg) tablet 0.125 mcg PO 3XWK 01/26/20 12/12/22 cholecalciferol (vitamin D3) 125 5,000 unit PO DAILY 02/15/21 12/12/22 mcg (5,000 unit) capsule ferrous sulfate 325 mg (65 mg 325 mg PO BID 02/15/21 12/12/22 iron) tablet pantoprazole 40 mg tablet,delayed 40 mg PO DAILY 02/15/21 12/12/22 release amoxicillin 500 mg capsule 2,000 mg PO DIRECTED PRN PRIOR 12/12/22 12/12/22 TO DENTAL APPT. ascorbic acid (vitamin C) 1,000 mg 1 g PO DAILY 12/12/22 12/12/22 tablet (Vitamin C) aspirin 81 mg tablet,delayed 81 mg PO DAILY 12/12/22 12/12/22 release clopidogrel 75 mg tablet (Plavix) 75 mg PO QAM 12/12/22 12/12/22 furosemide 20 mg tablet (Lasix) 20 mg PO QAM 12/12/22 12/12/22 furosemide 80 mg tablet (Lasix) 80 mg PO QAM 12/12/22 12/12/22 metoprolol succinate 100 mg 100 mg PO DAILY 12/12/22 12/12/22 tablet,extended release 24 hr Results & Data (ED) Vital Signs Vital Signs - 24 hr 12/12/22 19:03 12/12/22 20:55 12/12/22 21:00 Temperature 36.2 C L Temperature Source Temporal Artery Scan Pulse Rate 91 H 72 Pulse Rate [Finger] 82 Respiratory Rate 18 20 Respiratory Effort / Characteristics Non-Labored Spontaneous Respiratory Depth Normal Blood Pressure 135/78 Blood Pressure [Left Arm] 121/74 Blood Pressure Mean 97 Blood Pressure Mean [Left Arm] 89 Pulse Oximetry 97 96 Oxygen Delivery Method Room Air Room Air Sepsis Recent Fever Within 48 Hours No Sepsis New/Unexplained Change in Mental Status No Sepsis Action Taken by Nursing No Action Required Laboratory Data Attestation: I reviewed the patient's lab results. 12/12/22 19:28 12/12/22 19:28 Lab Results 12/12/22 12/12/22 12/12/22 Range/Units 19:28 19:28 21:38 WBC 7.71 (4.8-10.8) K/ul RBC 3.68 L (4.70-6.10) M/uL Hgb 11.2 L (14.0-18.0) g/dl Hct 32.6 L (42.0-52.0) % MCV 88.6 (80.0-100.0) fL MCH 30.4 (25.0-34.0) pg MCHC 34.4 (32.0-36.0) g/dL RDW Std Deviation 44.2 (36.4-46.3) fL RDW Coeff of Aleks 13.6 (11.5-14.5) % Plt Count 147 (130-400) K/uL MPV 10.6 (9.4-12.4) fL Immature Gran % (Auto) 0.4 % Neut % (Auto) 84.8 % Lymph % (Auto) 7.0 % [place] % (Auto) 6.6 % Eos % (Auto) 0.9 % Baso % (Auto) 0.3 % Neut # (Auto) 6.54 H (1.40-6.50) K/uL Lymph # (Auto) 0.54 L (1.2-3.4) K/uL [place] # (Auto) 0.51 (0.11-0.59) K/uL Eos # (Auto) 0.07 (0-0.50) K/uL Baso # (Auto) 0.02 (0-0.2) K/uL Immature Gran # (Auto) 0.03 (0.01-0.20) K/uL PT 11.4 (9.0-12.0) Seconds INR 1.1 (0.9-1.1) Sodium 136 (136-145) mmol/L Potassium 3.1 L (3.5-5.1) mmol/L Chloride 101 (98-107) mmol/L Carbon Dioxide 28 (21-32) mmol/L Anion Gap 7 (3-11) BUN 15 (6-23) mg/dl Creatinine 1.12 (0.6-1.4) mg/dl Est Cr Clr Drug Dosing 50.9 ml/min Est GFR ( Amer) 71.5 ml/min Est GFR (Non-Af Amer) 61.7 ml/min BUN/Creatinine Ratio 13.4 (10-20) Glucose 93 (70-99(Fasting)) mg/dl Calcium 8.5 (8.5-10.1) mg/dl Total Bilirubin 1.3 H (0.2-1.0) mg/dl Direct Bilirubin 0.5 H (0-0.2) mg/dl AST 167 H (13-39) U/L ALT 81 H (7-52) U/L Alkaline Phosphatase 198 H (34-104) U/L Total Protein 6.5 (6.0-8.3) gm/dl Albumin 3.3 L (3.4-5.0) gm/dl Globulin 3.2 (2.5-4.0) gm/dl Albumin/Globulin Ratio 1.0 (0.9-2) Lipase 4 L (11-82) U/L Urine Color Urine Appearance (Clear) Urine pH (4.5-7.5) Ur Specific [place] (1.000-1.030) Urine Protein (Negative) Urine Glucose (UA) (Negative) Urine Ketones (Negative) Urine Blood (Negative) Urine Nitrite (Negative) Urine Bilirubin (Negative) Urine Urobilinogen (Negative) Ur Leukocyte Esterase (Negative) 12/12/22 Range/Units 22:20 WBC (4.8-10.8) K/ul RBC (4.70-6.10) M/uL Hgb (14.0-18.0) g/dl Hct (42.0-52.0) % MCV (80.0-100.0) fL MCH (25.0-34.0) pg MCHC (32.0-36.0) g/dL RDW Std Deviation (36.4-46.3) fL RDW Coeff of Aleks (11.5-14.5) % Plt Count (130-400) K/uL MPV (9.4-12.4) fL Immature Gran % (Auto) % Neut % (Auto) % Lymph % (Auto) % [place] % (Auto) % Eos % (Auto) % Baso % (Auto) % Neut # (Auto) (1.40-6.50) K/uL Lymph # (Auto) (1.2-3.4) K/uL [place] # (Auto) (0.11-0.59) K/uL Eos # (Auto) (0-0.50) K/uL Baso # (Auto) (0-0.2) K/uL Immature Gran # (Auto) (0.01-0.20) K/uL PT (9.0-12.0) Seconds INR (0.9-1.1) Sodium (136-145) mmol/L Potassium (3.5-5.1) mmol/L Chloride (98-107) mmol/L Carbon Dioxide (21-32) mmol/L Anion Gap (3-11) BUN (6-23) mg/dl Creatinine (0.6-1.4) mg/dl Est Cr Clr Drug Dosing ml/min Est GFR ( Amer) ml/min Est GFR (Non-Af Amer) ml/min BUN/Creatinine Ratio (10-20) Glucose (70-99(Fasting)) mg/dl Calcium (8.5-10.1) mg/dl Total Bilirubin (0.2-1.0) mg/dl Direct Bilirubin (0-0.2) mg/dl AST (13-39) U/L ALT (7-52) U/L Alkaline Phosphatase (34-104) U/L Total Protein (6.0-8.3) gm/dl Albumin (3.4-5.0) gm/dl Globulin (2.5-4.0) gm/dl Albumin/Globulin Ratio (0.9-2) Lipase (11-82) U/L Urine Color Yellow Urine Appearance Clear (Clear) Urine pH 5.0 (4.5-7.5) Ur Specific [place] 1.011 (1.000-1.030) Urine Protein Negative (Negative) Urine Glucose (UA) Negative (Negative) Urine Ketones Negative (Negative) Urine Blood Negative (Negative) Urine Nitrite Negative (Negative) Urine Bilirubin Negative (Negative) Urine Urobilinogen Negative (Negative) Ur Leukocyte Esterase Negative (Negative) Administered Medications Sodium Chloride (Nss 1000ml) 1,000 mls @ 75 mls/hr IV .[id number] BIGG Stop: 01/11/23 23:55 Last Admin: 12/13/22 00:51 Dose: 75 mls/hr Documented By: EMILIANO Discontinued Medications Sodium Chloride (Nss 1000ml) 1,000 mls @ 125 mls/hr IV .Q8H BIGG Stop: 01/11/23 21:44 Last Admin: 12/12/22 21:56 Dose: 125 mls/hr Documented By: SILVIA Acetaminophen (Ofirmev) 1,000 mg in 100 mls @ 400 mls/hr IV NOW STA Stop: 12/12/22 21:46 Last Infusion: 12/12/22 22:27 Dose: 0 mls/hr Documented By: Admin: 12/12/22 21:56 Dose: 400 mls/hr Documented By: SILVIA Famotidine (Pepcid 20mg Iv Push) 20 mg in 5 mls @ 2.5 mls/min IV NOW STA Stop: 12/12/22 21:33 Last Admin: 12/12/22 21:56 Dose: 2.5 mls/min Documented By: SILVIA Ondansetron HCl (Ondansetron Inj 2 Mg/Ml 2 Ml Vial) 4 mg IV NOW STA Stop: 12/12/22 21:33 Last Admin: 12/12/22 21:56 Dose: 4 mg Documented By: SILVIA Potassium Chloride (Potassium Chloride Crtab 20 Meq Tabcr) 40 meq PO NOW STA Stop: 12/12/22 23:49 Last Admin: 12/13/22 00:50 Dose: 40 meq Documented By: EMILIANO Imaging Data Radiologist's Impression: Outpatient CT: CT SCAN OF THE ABDOMEN AND PELVIS WITHOUT IV CONTRAST CLINICAL HISTORY: Lower abdominal pain. COMPARISON STUDY: Abdominal CT dated 02/15/2021. TECHNIQUE: CT scan of the abdomen and pelvis is performed from the lung bases to the proximal femora. Images are reviewed in the axial, sagittal, and coronal planes. IV contrast was not administered for this examination. Note that the examination was performed in suboptimal fashion without oral and IV contrast. A dose lowering technique was utilized adhering to the principles of ALARA. CT DOSE: 301.61 mGy.cm FINDINGS: Lung bases: The heart is enlarged and without pericardial effusion. The coronary arteries and mitral annulus are calcified. The lung bases are clear. Liver: The unenhanced liver is normal in size, contour, and attenuation. There is mild intrahepatic biliary ductal dilatation. Gallbladder: Surgically absent and clips in the gallbladder fossa. Spleen: Normal in size and attenuation. Pancreas: The pancreatic head is surgically absent with evidence of pancreaticojejunostomy and gastrojejunostomy. This is consistent with a history of Whipple procedure. The distal pancreas is markedly atrophic. The pancreatic duct is dilated measuring up to 6 mm diameter. This is similar to previous Adrenal glands: Unremarkable. Kidneys: The unenhanced kidneys demonstrate cortical atrophy and are without hydronephrosis. There are no renal calculi identified. Scattered cortical hypodensities likely represent cysts but cannot be definitively characterized on this examination. Abdominal vasculature: The abdominal aorta is normal in course and caliber noting moderate atherosclerotic calcification. Bowel: There is postsurgical change from distal gastrectomy and duodenal resection with gastrojejunostomy. There is wall thickening with mild surrounding infiltration seen involving the left colon. This extends from the splenic flexure to the sigmoid as consistent with a nonspecific colitis. There is mild colonic diverticulosis without CT evidence of acute diverticulitis. A small bowel anastomosis is seen in the right mid abdomen. There is distention of the fluid-filled pancreaticobiliary limb above the distal anastomosis which measures up to 3.7 cm in diameter. The appendix is well-visualized and normal. Peritoneum: There is trace free fluid in the right abdomen, as well as trace pelvic ascites. No intraperitoneal free air is identified. Lymphadenopathy: None. Pelvic viscera: Evaluation of the pelvis is degraded by streak artifact from a right hip arthroplasty. The prostate gland is enlarged and heterogeneous noting median lobe hypertrophy. The bladder wall is thickened/trabeculated indicating chronic outlet obstruction. Skeletal structures: The skeletal structures are heterogeneously osteopenic. There is moderate lumbosacral spondylosis. No lytic or blastic lesions are seen. A right hip arthroplasty is in place. Arthritic change is seen in the left hip. There are subacute appearing right anterior rib fractures. IMPRESSION: 1. Postsurgical change is consistent with previous Whipple procedure. 2. The pancreaticobiliary limb appears dilated and fluid-filled, measuring up to 3.7 cm in diameter. Findings are highly suspicious for obstruction of this loop, and this may be a closed loop type obstruction related to an internal hernia. Clinical and laboratory correlation will be essential. Surgical assessment is advised. 3. There is evidence of a nonspecific colitis of the left colon. This could be on an infectious, inflammatory, or ischemic basis. Correlate clinically. 4. Trace abdominopelvic ascites. 5. Additional findings as above. ACT 112: Negative or not required by law. Electronically signed by: Benedict Ray M.D. 12/12/2022 5:23 PM Dictated:12/12/221708 Transcribed: 12/12/221708 Discharge Plan Visit Data Chief Complaint: GI Assessment Stated Complaint: INPACTED INTESTINE ED Provider: Raad Noe Discharge Problem: SBO (small bowel obstruction), Nonspecific colitis, History of pancreatic cancer Patient Disposition: Admitted As Inpatient Discharge Instructions Interventions: ED Discharge Assessment Last Done: 12/13/22 00:24
[2022-12-12] MEDS ORDERED: ONDANSETRON INJ 2 MG/ML 2 ML VIAL IV STA (21:32)
[2022-12-12] MEDS ORDERED: FAMOTIDINE 20MG IV PUSH 20 MG/5 ML SYR IV STA (21:32)
[2022-12-12] MEDS ORDERED: ACETAMINOPHEN 1,000 MG/100 ML VIAL IV STA (21:32)
[2022-12-12] MEDS ORDERED: SODIUM CHLORIDE 0.9% 1000ML 1,000 ML IV SCH (21:45)
[2022-12-12 21:47] LABS: INR 1.1 (0.9-1.1); Prothrombin Time 11.4 Seconds (9.0-12.0)
[2022-12-12 21:53] LABS: Bilirubin Direct 0.5 mg/dl (0-0.2)
[2022-12-12 22:42] LABS: Appearance Urine Clear (Clear); Bilirubin Urine Negative (Negative); Blood Urine Negative (Negative); Color Urine Yellow; Glucose Urine UA Negative (Negative); Ketones Urine Negative (Negative); Leukocyte Esterase Urine Negative (Negative); Nitrite Urine Negative (Negative); Protein Urine Negative (Negative); Specific Gravity Urine 1.011 (1.000-1.030); Urobilinogen Urine Negative (Negative)
[2022-12-12] MEDS ORDERED: POTASSIUM CHLORIDE CRTAB 20 MEQ TABCR PO STA (23:48)
[2022-12-12] MEDS ORDERED: ACETAMINOPHEN 325 MG TAB PO PRN (23:56)
[2022-12-12] MEDS ORDERED: MoRPHine SULFATE 4 MG/ML 1 ML CARP\\VIAL IV PRN (23:56)
[2022-12-12] MEDS ORDERED: ONDANSETRON INJ 2 MG/ML 2 ML VIAL IV PRN (23:56)
[2022-12-13] MEDS: SODIUM CHLORIDE 0.9% 1000ML 1,000 ML IV SCH ×2 (00:51→15:26)
--- NOTE | 2022-12-13 01:20 | History and Physical Report ---
DATE OF ADMISSION: 12/12/2022 CHIEF COMPLAINT: Abdominal pain, small bowel obstruction. HISTORY OF PRESENT ILLNESS: This is an 82-year-old male with past medical history significant for chronic AFib, systolic and diastolic EF of 45-49% on echo in July 2022. On recent echo in November 2022, EF is 50-54%, moderate mitral regurgitation, severe tricuspid regurgitation, history of nonsustained V- tach, frequent PVCs, hypertension, hyperlipidemia, obstructive sleep apnea, not on CPAP, former smoker, history of pancreatic cancer, status post Whipple and chemoradiation in 2009, GERD, irritable bowel syndrome, history of GI bleed in 2019, status post clipping, history of diabetes type 2, peripheral artery disease, history of CVA in July 2022 with a left MCA ischemic stroke with left ICA occlusion, status post mechanical thrombectomy of LICA , he presented to [facility] with right hemiparesis, aphasia, dysarthria, neglect of the right side of his body and right sided gaze deviation and after thrombectomy, he had only minimal aphasia, discharged to continued rehabilitation. Currently, he is doing fine as per . He is walking, ambulating without support sometimes even though he his leg gives away. Eating and drinking okay. Currently, the patient is alert and oriented. Speech is clear .He went to PCP office because the last 2-3 days, he is having abdominal pain, but it got worsened since yesterday. Went to at PCP office and was sent here for CAT scan, done here in [facility] . Ct scan showing" The pancreaticobiliary limb appears dilated and fluid filled measuring up to 3.7 cm in diameter. Findings are highly suspicious for obstruction of his loop and this may be a closed loop type obstruction related to internal hernia, and nonspecific colitis of the left colon". The patient states he has several bowel movements every day since Whipple procedure and his last bowel movement was around 2-3 p.m. today after that he is just passing gas . ER physician spoke to Surgery on-call and because currently he is passing gas and his abdomen is not that distended or that much tender on palpation was recommended to observe. The patient is currently resting comfortably, hemodynamically stable . Denies any headache, no dizziness, no blurred visions, no earache, no runny nose, no sore throat, no cough, no difficulty swallowing. No chest pain, no shortness of breath, no nausea, no vomiting. Abdominal pain is much improved now.. Normal bladder movements. No swelling in the legs. ALLERGIES: No known drug allergies. PAST MEDICAL HISTORY: As mentioned above. PAST SURGICAL HISTORY: Colonoscopies multiple, EGDs multiple, electrical cardioversion, injection of the lumbosacral spine, proctoscopy, lasering of secondary cataract, percutaneous closure of left atrial appendage, cataract surgery, Whipple procedure in 2010, tonsillectomy, adenoidectomy, sacroiliac joint injection. MEDICATIONS: The patient is on amoxicillin prior to dental appointment, vitamin C 1 gram p.o. daily, aspirin 81 mg p.o. daily, vitamin D 5000 units p.o. daily, Plavix 75 mg p.o. a.m., digoxin 0.125 mg p.o. 3 times a week, ferrous sulfate 325 mg p.o. b.i.d., Lasix 80 mg p.o. daily, thiamine 100 mg p.o. a.m., metoprolol succinate 100 mg p.o. daily, Protonix 40 mg p.o. daily. FAMILY HISTORY: Significant for mother has lung cancer, diabetes, ear problems. Father has heart disorder. SOCIAL HISTORY: , former smoker, quit in 1967. Alcohol, rarely. No drug use. REVIEW OF SYSTEMS: As per HPI. Rest of the review of systems is negative. PHYSICAL EXAMINATION: GENERAL: The patient is of moderate build, not in acute distress. VITAL SIGNS: Temperature 36.2, pulse 72, respiratory rate 20, blood pressure 121/74, oxygen 96% on room air. HEENT: Pupils equal, round and reactive to light. Oral mucosa moist. NECK: No JVD. No neck masses. CARDIOVASCULAR: S1 and S2 heard. Regular rate and rhythm. No murmur, no gallop. RESPIRATORY SYSTEM: Normal AP diameter. No accessory muscle use. No wheezing or crackles. ABDOMEN: Soft, bowel sounds very sluggish, nontender, no distention. CENTRAL NERVOUS SYSTEM: Cranial nerves II through XII grossly intact, nonfocal. EXTREMITIES: No pedal edema present, no erythema seen. LABORATORY DATA: WBC 7.7, hemoglobin 11.2, hematocrit 32.6, platelets 147. PT 11.4, INR 1.1. Sodium 136, potassium 3.1, chloride 101, bicarbonate 28, BUN 15, creatinine 1.1, serum glucose 93, calcium 8.5, total bilirubin 1.3, direct bilirubin 0.5, [id number], ALT 81, alkaline phosphatase 198, total protein 6.5. Lipase 4. Urinalysis negative. SARS-CoV-2 rapid test negative. IMAGING DATA: CT of abdomen and pelvis done earlier without IV contrast, which shows : 1. Postsurgical change is consistent with previous Whipple procedure. 2. The pancreaticobiliary limb appears dilated and fluid-filled, measuring up to 3.7 cm in diameter. Findings are highly suspicious for obstruction of this loop, and this may be a closed loop type obstruction related to an internal hernia. Clinical and laboratory correlation will be essential. Surgical assessment is advised. 3. There is evidence of a nonspecific colitis of the left colon. This could be on an infectious, inflammatory, or ischemic basis. Correlate clinically. 4. Trace abdominopelvic ascites. ASSESSMENT AND PLAN: This is an 82-year-old male who presents with abdominal pain and found to have a bowel obstruction. 1. Bowel obstruction as mentioned above on CAT scan report, but the patient does not have significant symptoms currently. He is passing gas. His last bowel movement is around 3 p.m. No nausea or vomiting. We will keep him n.p.o., IV fluids, IV antiemetics, IV pain meds p.r.n. Consult Surgery in the a.m. Repeat KUB in the a.m. Closely monitor. 2. History of atrial fibrillation, recently had a Watchman implantation, rate controlled with metoprolol succinate and digoxin. 3. Chronic systolic and diastolic congestive heart failure: The patient's EF was 45-49% on echo in July 2022, but was improved to 50-54% on echo done on 11/27/2022. The patient also has moderate mitral regurgitation, severe tricuspid regurgitation. On Lasix 100 mg daily, digoxin and metoprolol succinate, which we will continue. Getting gentle fluids, monitor for any volume overload. 4. Hypertension: On diuretics and metoprolol succinate. We will monitor the blood pressure. 5. History of pancreatic cancer, status post Whipple, chemoradiation in 2009. 6. History of diabetes type 2, currently on no medication. Monitor the blood sugars. 7. History of recent stroke with mechanical thrombectomy LICA on 08/16/2022 in [facility]. PT, OT when stable. Continue aspirin, Plavix. 8. GERD. Continue Protonix. 9. Recurrent falls. PT, OT when stable. 10. Transaminitis.Will follow repeat labs. 11. DVT px. Heparin sub q DISPOSITION: Closely monitor in the medical floor. PT/OT prior to discharge. Social service to help with discharge planning. Job ID: [id number]
[2022-12-13] MEDS: CLOPIDOGREL BISULFATE 75 MG TAB PO SCH (09:38)
[2022-12-13] MEDS: ASPIRIN 81 MG ECTAB PO SCH (09:38)
[2022-12-13] MEDS: ASCORBIC ACID 500 MG TAB PO SCH (09:38)
[2022-12-13] MEDS: FUROSEMIDE 20 MG TAB PO SCH (09:38)
[2022-12-13] MEDS: FERROUS SULFATE 325 MG TAB PO SCH ×2 (09:38→21:12)
[2022-12-13] MEDS: METOPROLOL SUCC 50MG EXT REL TAB PO SCH (09:39)
[2022-12-13] MEDS: HEPARIN SOD 5,000 UNIT/0.5 ML VIAL SQ SCH ×2 (09:39→21:12)
[2022-12-13] MEDS: FUROSEMIDE 80 MG TAB PO SCH (09:39)
[2022-12-13] MEDS: CHOLECALCIFEROL 5,000 UNITS 125 MCG TAB PO SCH (09:39)
--- NOTE | 2022-12-13 09:53 | Surgery Consultation ---
Date of Consultation December 13, 2022 Assessment & Plan (1) SBO (small bowel obstruction): Plan 82 year-old male with multiple comorbidities and history of Whipple procedure in 2009 for pancreatic cancer with chemoradiation presented to ED from PCP office with increasing abdominal pain for 1-2 days. No nausea or vomiting. Chronic loose stools x6/day since Whipple surgery and bowel movements have been regular. CT scan concerning for SBO at pancreaticobiliary limb. No leukocytosis, lactate normal, abdomen is soft, nondistended, nontender on examination today and having + bowel function. Plan: No surgical intervention recommended at this time Continue conservative management Will await KUB results but based on exam can likely start sips of clears continue medical management repeat labs including liver profile in am suggested Discussed with DR. Tripp who agrees with above History of Present Illness Reason for Consultation: SBO Requesting Physician: Dr. Benito Attending Physician: Saman Fajardo MD History of Present Illness Mr. Espinal is a 82-year-old male with past medical history significant for chronic AFib, systolic and diastolic EF is 50-54%, moderate mitral regurgitation, severe tricuspid regurgitation, history of nonsustained V-tach, frequent PVCs, hypertension, hyperlipidemia, obstructive sleep apnea, not on CPAP, former smoker, history of pancreatic cancer, status post Whipple and chemoradiation in 2009, GERD, irritable bowel syndrome, history of GI bleed in 2019, history of diabetes type 2, peripheral artery disease, history of CVA in July 2022 with a left MCA ischemic stroke with left ICA occlusion, status post mechanical thrombectomy of LICAwho presented to emergency room from PCP office due to 1-2 day history of abdominal pain with increasing severity. States that he has chronic loose stools since his Whipple surgery 13 years ago. States usually has 6 loose stools a day. Was having bowel movements and passing gas but pain increased. No history of prior SBO per patient. No other abdominal surgeries on the the Whipple procedure. Currently states he is feeling better. Pain has resolved. Passing bowel movements and gas. Does not feel bloated. No nausea or vomiting. Allergies Allergy/AdvReac Type Severity Reaction Status Date / Time No Known Allergies Allergy Unknown Verified 12/12/22 21:32 Home Medications Medication Instructions Recorded Confirmed Type digoxin 125 mcg (0.125 mg) tablet 0.125 mcg PO [id number] 01/26/20 12/12/22 History cholecalciferol (vitamin D3) 125 5,000 unit PO DAILY 02/15/21 12/12/22 History mcg (5,000 unit) capsule ferrous sulfate 325 mg (65 mg 325 mg PO BID 02/15/21 12/12/22 History iron) tablet pantoprazole 40 mg tablet,delayed 40 mg PO DAILY 02/15/21 12/12/22 History release amoxicillin 500 mg capsule 2,000 mg PO DIRECTED PRN PRIOR 12/12/22 12/12/22 History TO DENTAL APPT. ascorbic acid (vitamin C) 1,000 mg 1 g PO DAILY 12/12/22 12/12/22 History tablet (Vitamin C) aspirin 81 mg tablet,delayed 81 mg PO DAILY 12/12/22 12/12/22 History release clopidogrel 75 mg tablet (Plavix) 75 mg PO QAM 12/12/22 12/12/22 History furosemide 20 mg tablet (Lasix) 20 mg PO QAM 12/12/22 12/12/22 History furosemide 80 mg tablet (Lasix) 80 mg PO QAM 12/12/22 12/12/22 History metoprolol succinate 100 mg 100 mg PO DAILY 12/12/22 12/12/22 History tablet,extended release 24 hr Patient History Medical History (Updated 12/13/22 @ 12:47 by Nichol Marquez PA-C) Atrial fibrillation Chronic ischemic cerebrovascular accident (CVA) involving left middle cerebral artery territory CKD (chronic kidney disease) stage 3, GFR 30-59 ml/min Diabetes mellitus, type II Diarrhea due to malabsorption Dyslipidemia GERD (gastroesophageal reflux disease) HTN (hypertension) Pancreatic cancer Venous insufficiency Surgical History H/O cataract removal with insertion of prosthetic lens H/O total hip arthroplasty History of pancreatectomy "with subtotal duodenectomy performed by Dr. Rudd 03/2010" History of tonsillectomy and adenoidectomy Family History Grandfather (Paternal) Pancreatic cancer Mother , 77 Lung cancer Diabetes Brother Diabetes Father Atrial fibrillation Social History Smoking Status: Former smoker Second Hand Exposure: No; Do You Dip or Chew Tobacco: No; Tobacco Cessation Education Requested by Patient: No Hx Alcohol Use: No Hx Substance Use: No Preferred Language: [place] Communication Ability: Effective Client Application Support Specialist Required: No Beliefs That Will Affect Care: None marital status: Current Living Situation: Spouse Current Living Situation Comment: Lives with on farm current occupational status: retired 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 [employer] How many Children do You have: 2 Other Information That Helps Us Care for You: No Feels Safe at Home: Yes Assistive Devices: Cane and Walker Assistive Devices Comment: Partial upper dentures and reading glasses - both no t present Physical Exam Constitutional: WD/WN, vitals as above cooperative and comfortable; no acute distress and not ill appearing Neck: normal visual inspection and trachea midline Respiratory: normal respiratory effort; no respiratory distress Gastrointestinal (Abdomen): Inspection/Auscultation: abdomen normal to inspection, + abdominal surgical scar (RUQ whipple scar) and + hypoactive bowel sounds; abdomen not distended and + abnormal bowel sounds Percussion/Palpation: + abdomen tender (mild tenderness in the epigastrium on deep palpation) and abdomen soft; no guarding and abdomen not rigid Skin: no rashes, warm and dry Psychiatric: Orientation: alert and oriented x 3 Results & Data Vital Signs (Past 12 Hours) Vital Signs Temp Pulse Pulse Resp BP Pulse Ox O2 Del Method 12/13/22 09:37 87 135/81 12/13/22 07:34 36.6 C 81 16 122/71 98 Room Air 12/12/22 23:56 37 C 60 18 107/54 L 96 Room Air 12/12/22 23:56 37 C 60 18 107/54 L 96 Room Air Laboratory Results 12/13/22 12/13/22 12/13/22 Range/Units 09:40 07:48 07:48 WBC 5.24 (4.8-10.8) K/ul RBC 3.06 L (4.70-6.10) M/uL Hgb 9.4 L (14.0-18.0) g/dl Hct 27.4 L (42.0-52.0) % MCV 89.5 (80.0-100.0) fL MCH 30.7 (25.0-34.0) pg MCHC 34.3 (32.0-36.0) g/dL RDW Std Deviation 45.2 (36.4-46.3) fL RDW Coeff of Aleks 13.9 (11.5-14.5) % Plt Count 105 L (130-400) K/uL MPV 11.1 (9.4-12.4) fL Immature Gran % (Auto) 0.4 % Neut % (Auto) 70.6 % Lymph % (Auto) 17.9 % Louisa % (Auto) 9.0 % Eos % (Auto) 1.7 % Baso % (Auto) 0.4 % Neut # (Auto) 3.70 (1.40-6.50) K/uL Lymph # (Auto) 0.94 L (1.2-3.4) K/uL Louisa # (Auto) 0.47 (0.11-0.59) K/uL Eos # (Auto) 0.09 (0-0.50) K/uL Baso # (Auto) 0.02 (0-0.2) K/uL Immature Gran # (Auto) 0.02 (0.01-0.20) K/uL PT (9.0-12.0) Seconds INR (0.9-1.1) Sodium Pending (136-145) mmol/L Potassium Pending (3.5-5.1) mmol/L Chloride Pending (98-107) mmol/L Carbon Dioxide Pending (21-32) mmol/L Anion Gap Pending (3-11) BUN Pending (6-23) mg/dl Creatinine Pending (0.6-1.4) mg/dl Est Cr Clr Drug Dosing Pending ml/min Est GFR ( Amer) Pending ml/min Est GFR (Non-Af Amer) Pending ml/min BUN/Creatinine Ratio Pending (10-20) Glucose Pending (70-99(Fasting)) mg/dl Estimat Average Glucose Hemoglobin A1c Lactate 0.8 (0.4-2.0) mmol/L Calcium Pending (8.5-10.1) mg/dl Magnesium Pending Total Bilirubin Pending (0.2-1.0) mg/dl Direct Bilirubin (0-0.2) mg/dl AST Pending (13-39) U/L ALT Pending (7-52) U/L Alkaline Phosphatase Pending (34-104) U/L Total Protein Pending (6.0-8.3) gm/dl Albumin Pending (3.4-5.0) gm/dl Globulin Pending (2.5-4.0) gm/dl Albumin/Globulin Ratio Pending (0.9-2) Lipase (11-82) U/L Urine Color Urine Appearance (Clear) Urine pH (4.5-7.5) Ur Specific [place] (1.000-1.030) Urine Protein (Negative) Urine Glucose (UA) (Negative) Urine Ketones (Negative) Urine Blood (Negative) Urine Nitrite (Negative) Urine Bilirubin (Negative) Urine Urobilinogen (Negative) Ur Leukocyte Esterase (Negative) SARS-CoV-2, RNA, NAAT (NEGATIVE) 12/13/22 12/12/22 12/12/22 Range/Units 07:48 Unknown 22:20 WBC (4.8-10.8) K/ul RBC (4.70-6.10) M/uL Hgb (14.0-18.0) g/dl Hct (42.0-52.0) % MCV (80.0-100.0) fL MCH (25.0-34.0) pg MCHC (32.0-36.0) g/dL RDW Std Deviation (36.4-46.3) fL RDW Coeff of Aleks (11.5-14.5) % Plt Count (130-400) K/uL MPV (9.4-12.4) fL Immature Gran % (Auto) % Neut % (Auto) % Lymph % (Auto) % Louisa % (Auto) % Eos % (Auto) % Baso % (Auto) % Neut # (Auto) (1.40-6.50) K/uL Lymph # (Auto) (1.2-3.4) K/uL Louisa # (Auto) (0.11-0.59) K/uL Eos # (Auto) (0-0.50) K/uL Baso # (Auto) (0-0.2) K/uL Immature Gran # (Auto) (0.01-0.20) K/uL PT (9.0-12.0) Seconds INR (0.9-1.1) Sodium (136-145) mmol/L Potassium (3.5-5.1) mmol/L Chloride (98-107) mmol/L Carbon Dioxide (21-32) mmol/L Anion Gap (3-11) BUN (6-23) mg/dl Creatinine (0.6-1.4) mg/dl Est Cr Clr Drug Dosing ml/min Est GFR ( Amer) ml/min Est GFR (Non-Af Amer) ml/min BUN/Creatinine Ratio (10-20) Glucose (70-99(Fasting)) mg/dl Estimat Average Glucose Pending Hemoglobin A1c Pending Lactate (0.4-2.0) mmol/L Calcium (8.5-10.1) mg/dl Magnesium Total Bilirubin (0.2-1.0) mg/dl Direct Bilirubin (0-0.2) mg/dl AST (13-39) U/L ALT (7-52) U/L Alkaline Phosphatase (34-104) U/L Total Protein (6.0-8.3) gm/dl Albumin (3.4-5.0) gm/dl Globulin (2.5-4.0) gm/dl Albumin/Globulin Ratio (0.9-2) Lipase (11-82) U/L Urine Color Yellow Urine Appearance Clear (Clear) Urine pH 5.0 (4.5-7.5) Ur Specific [place] 1.011 (1.000-1.030) Urine Protein Negative (Negative) Urine Glucose (UA) Negative (Negative) Urine Ketones Negative (Negative) Urine Blood Negative (Negative) Urine Nitrite Negative (Negative) Urine Bilirubin Negative (Negative) Urine Urobilinogen Negative (Negative) Ur Leukocyte Esterase Negative (Negative) SARS-CoV-2, RNA, NAAT NEGATIVE (NEGATIVE) 12/12/22 12/12/22 12/12/22 Range/Units 21:38 19:28 19:28 WBC 7.71 (4.8-10.8) K/ul RBC 3.68 L (4.70-6.10) M/uL Hgb 11.2 L (14.0-18.0) g/dl Hct 32.6 L (42.0-52.0) % MCV 88.6 (80.0-100.0) fL MCH 30.4 (25.0-34.0) pg MCHC 34.4 (32.0-36.0) g/dL RDW Std Deviation 44.2 (36.4-46.3) fL RDW Coeff of Aleks 13.6 (11.5-14.5) % Plt Count 147 (130-400) K/uL MPV 10.6 (9.4-12.4) fL Immature Gran % (Auto) 0.4 % Neut % (Auto) 84.8 % Lymph % (Auto) 7.0 % Louisa % (Auto) 6.6 % Eos % (Auto) 0.9 % Baso % (Auto) 0.3 % Neut # (Auto) 6.54 H (1.40-6.50) K/uL Lymph # (Auto) 0.54 L (1.2-3.4) K/uL Louisa # (Auto) 0.51 (0.11-0.59) K/uL Eos # (Auto) 0.07 (0-0.50) K/uL Baso # (Auto) 0.02 (0-0.2) K/uL Immature Gran # (Auto) 0.03 (0.01-0.20) K/uL PT 11.4 (9.0-12.0) Seconds INR 1.1 (0.9-1.1) Sodium 136 (136-145) mmol/L Potassium 3.1 L (3.5-5.1) mmol/L Chloride 101 (98-107) mmol/L Carbon Dioxide 28 (21-32) mmol/L Anion Gap 7 (3-11) BUN 15 (6-23) mg/dl Creatinine 1.12 (0.6-1.4) mg/dl Est Cr Clr Drug Dosing 50.9 ml/min Est GFR ( Amer) 71.5 ml/min Est GFR (Non-Af Amer) 61.7 ml/min BUN/Creatinine Ratio 13.4 (10-20) Glucose 93 (70-99(Fasting)) mg/dl Estimat Average Glucose Hemoglobin A1c Lactate (0.4-2.0) mmol/L Calcium 8.5 (8.5-10.1) mg/dl Magnesium Total Bilirubin 1.3 H (0.2-1.0) mg/dl Direct Bilirubin 0.5 H (0-0.2) mg/dl AST 167 H (13-39) U/L ALT 81 H (7-52) U/L Alkaline Phosphatase 198 H (34-104) U/L Total Protein 6.5 (6.0-8.3) gm/dl Albumin 3.3 L (3.4-5.0) gm/dl Globulin 3.2 (2.5-4.0) gm/dl Albumin/Globulin Ratio 1.0 (0.9-2) Lipase 4 L (11-82) U/L Urine Color Urine Appearance (Clear) Urine pH (4.5-7.5) Ur Specific [place] (1.000-1.030) Urine Protein (Negative) Urine Glucose (UA) (Negative) Urine Ketones (Negative) Urine Blood (Negative) Urine Nitrite (Negative) Urine Bilirubin (Negative) Urine Urobilinogen (Negative) Ur Leukocyte Esterase (Negative) SARS-CoV-2, RNA, NAAT (NEGATIVE) Diagnostic Findings CT SCAN OF THE ABDOMEN AND PELVIS WITHOUT IV CONTRAST CLINICAL HISTORY: Lower abdominal pain. COMPARISON STUDY: Abdominal CT dated 02/15/2021. TECHNIQUE: CT scan of the abdomen and pelvis is performed from the lung bases to the proximal femora. Images are reviewed in the axial, sagittal, and coronal planes. IV contrast was not administered for this examination. Note that the examination was performed in suboptimal fashion without oral and IV contrast. A dose lowering technique was utilized adhering to the principles of ALARA. CT DOSE: 301.61 mGy.cm FINDINGS: Lung bases: The heart is enlarged and without pericardial effusion. The coronary arteries and mitral annulus are calcified. The lung bases are clear. Liver: The unenhanced liver is normal in size, contour, and attenuation. There is mild intrahepatic biliary ductal dilatation. Gallbladder: Surgically absent and clips in the gallbladder fossa. Spleen: Normal in size and attenuation. Pancreas: The pancreatic head is surgically absent with evidence of pancreaticojejunostomy and gastrojejunostomy. This is consistent with a history of Whipple procedure. The distal pancreas is markedly atrophic. The pancreatic duct is dilated measuring up to 6 mm diameter. This is similar to previous Adrenal glands: Unremarkable. Kidneys: The unenhanced kidneys demonstrate cortical atrophy and are without hydronephrosis. There are no renal calculi identified. Scattered cortical hypodensities likely represent cysts but cannot be definitively characterized on this examination. Abdominal vasculature: The abdominal aorta is normal in course and caliber noting moderate atherosclerotic calcification. Bowel: There is postsurgical change from distal gastrectomy and duodenal resection with gastrojejunostomy. There is wall thickening with mild surrounding infiltration seen involving the left colon. This extends from the splenic flexure to the sigmoid as consistent with a nonspecific colitis. There is mild colonic diverticulosis without CT evidence of acute diverticulitis. A small bowel anastomosis is seen in the right mid abdomen. There is distention of the fluid-filled pancreaticobiliary limb above the distal anastomosis which measures up to 3.7 cm in diameter. The appendix is well-visualized and normal. Peritoneum: There is trace free fluid in the right abdomen, as well as trace pelvic ascites. No intraperitoneal free air is identified. Lymphadenopathy: None. Pelvic viscera: Evaluation of the pelvis is degraded by streak artifact from a right hip arthroplasty. The prostate gland is enlarged and heterogeneous noting median lobe hypertrophy. The bladder wall is thickened/trabeculated indicating chronic outlet obstruction. Skeletal structures: The skeletal structures are heterogeneously osteopenic. There is moderate lumbosacral spondylosis. No lytic or blastic lesions are seen. A right hip arthroplasty is in place. Arthritic change is seen in the left hip. There are subacute appearing right anterior rib fractures. IMPRESSION: 1. Postsurgical change is consistent with previous Whipple procedure. 2. The pancreaticobiliary limb appears dilated and fluid-filled, measuring up to 3.7 cm in diameter. Findings are highly suspicious for obstruction of this loop, and this may be a closed loop type obstruction related to an internal hernia. Clinical and laboratory correlation will be essential. Surgical assessment is advised. 3. There is evidence of a nonspecific colitis of the left colon. This could be on an infectious, inflammatory, or ischemic basis. Correlate clinically. 4. Trace abdominopelvic ascites. 5. Additional findings as above.
[2022-12-13 09:55] LABS: Basophils # (auto) 0.02 K/uL (0-0.2); Basophils % (auto) 0.4 %; Eosinophils # (auto) 0.09 K/uL (0-0.50); Eosinophils % (auto) 1.7 %; Hematocrit (blood only) 27.4 % (42.0-52.0); Hemoglobin 9.4 g/dl (14.0-18.0); Immature Granulocytes # (auto) 0.02 K/uL (0.01-0.20); Immature Granulocytes % (auto) 0.4 %; Lymphocytes # (auto) 0.94 K/uL (1.2-3.4); Lymphocytes % (auto) 17.9 %; Mean Corpuscular Hemoglobin 30.7 pg (25.0-34.0); Mean Corpuscular Hgb Conc 34.3 g/dL (32.0-36.0); Mean Corpuscular Volume 89.5 fL (80.0-100.0); Mean Platelet Volume 11.1 fL (9.4-12.4); Monocytes # (auto) 0.47 K/uL (0.11-0.59); Neutrophils % (auto) 70.6 %; Platelet Count 105 K/uL (130-400); RDW Coefficient of Variation 13.9 % (11.5-14.5); RDW Standard Deviation 45.2 fL (36.4-46.3); Red Blood Count 3.06 M/uL (4.70-6.10); White Blood Count 5.24 K/ul (4.8-10.8)
[2022-12-13 10:02] LABS: Albumin Globulin Ratio 1.1 (0.9-2); Albumin Level 2.6 gm/dl (3.4-5.0); Bilirubin,Total 1.2 mg/dl (0.2-1.0); Calcium 7.5 mg/dl (8.6-10.3); Est GFR (Non-African American) 70.8 ml/min; Globulin 2.4 gm/dl (2.5-4.0); Magnesium 1.8 mg/dl (1.7-2.4); Potassium 3.1 mmol/L (3.5-5.1)
[2022-12-13] MEDS: PANTOprazole 40 MG TAB PO SCH (10:21)
[2022-12-13] MEDS ORDERED: POTASSIUM CHLORIDE CRTAB 20 MEQ TABCR PO STA (10:56)
--- NOTE | 2022-12-13 11:08 | XRay Report ---
XR KUB/Abdomen 1 view CLINICAL HISTORY: sbo TECHNIQUE: 1 view of the abdomen was obtained. Comparison: Comparison is made to CT abdomen pelvis 12/12/2022 FINDINGS: Cholecystomy clips are seen in the right upper quadrant. Right femoral arthroplasty noted. A PICC sag ittal radiodensity projects over the left upper quadrant, which represents a change from the prior CT where it was in the right upper quadrant. Degenerative changes are seen in the visualized skeleton. There is a paucity of small bowel gas but there is suggestion of distended loops measuring up to 34 m m. Small stool burden is seen. IMPRESSION: Suggestion of distended loops of small bowel without decompression of the colon. Findings may represe nt partial small bowel obstruction versus ileus. ACT 112: Negative or not required by law. Electronically signed by: Betito Loyola M.D. 12/13/2022 11:05 AM
--- NOTE | 2022-12-13 12:45 | Hospitalist Progress Note ---
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: (6) CKD (chronic kidney disease) stage 3, GFR 30-59 ml/min: (7) History of pancreatic cancer: Plan This is an 82M who has significant PMH of PAF, Chronic systolic/diastolic CHF, moderate MR, severe TR, hx of nonsustained vtach, HTN, HLD, OMKAR not on cpap, hx of pancreatic ca s/p whipple and chemoradiation in 2009, GERD, hx of GIB in 2019 s/o cliping, hx of Ischemic Left MCA stroke s/p thrombectomy with residual memory deficit presented to ED after abnormal CT scan revealed pancreatobiliary limb appears dilated and fluid-filled measuring up to 3.7 cm in diameter highly suspicious of obstruction of this loop which may be a closed-loop type obstruction related to internal hernia and nonspecific colitis of left colon. Patient initially was seen by PCP due to abdominal pain for 1 to 2 days. Pancreatobiliary Small bowel obstruction Colitis admit to med/surg CT a/p:The pancreaticobiliary limb appears dilated and fluid-filled, measuring up to 3.7 cm in diameter. Findings are highly suspicious for obstruction of this loop, and this may be a closed loop type obstruction related to an internal hernia. Clinical and laboratory correlation will be essential. Surgical assessment is advised. 3. There is evidence of a nonspecific colitis of the left colon. This could be on an infectious, inflammatory, or ischemic basis. Correlate clinically. KUB shows residual partial SBO vs ileus general surgery on board- appreciate their assistance will await further surg recs continue NPO, IVF for now he does have bowel function with freq loose stools (chronic since whipple), minimal pain and passing flatus obtain stool culture for completeness afebrile, wbc wnl no indication for antibiotics at this time Hypokalemia replace with 40meq x 1 now and this afternoon start daily repletion due to diuretics Anemia likely of chronic disease hgb 9.4/27.4 hgb 11.2 on admission baseline ~9-10 in OP records, had anemia panel 05/2022 showed low TIBC, but otherwise normal likely dilutional in setting of IVF, no s/sx of bleeding but will monitor closely Transaminitis AST 108, ALT 64, Alp 161, Total bili 1.2, direct bili 0.5 repeat in a.m. hx of cholecystectomy, denies alcohol use has been elevated since September per OP records Hx of L MCA ischemic CVA s/p thrombectomy on asa, plavix doing well occurred 07/2022 PAF, s/p Watchman procedure 10/16/22 Dr. Mcclellan Chronic systolic/diastolic CHF Severe mitral/tricuspid regurg - to high risked candidate for replacement, plan for clip procedure in future HTN continue lasix, asa, dig, metoprolol compensated Chronic diarhea in setting of pancreatic surgery per OP notes he has been worked up in the past and even tried pancreatic enzymes w/o improvement given acuity will check stool cultures for completeness CKD-3 baseline cr 1.2 bun/cr stable, avoid nephrotoxic agents DVT ppx: SQ Heparin FULL CODE PCP: Rudy Dispo: remains admitted from home to med/surg, not yet medically stable for d/c A total of 60 minutes was spent with greater than 50% of that time personally viewing all current laboratory work and diagnostic imaging studies obtained in the ED. Additionally, I was able to view the patients past medication reconciliation and history with direct visualization in the patients chart. Included in the time above, a portion of that time was spent assessing the patient while discussing and collaborating with specialists, if necessary, and making medical decision making on treatment plan. All of the above was collaborated with peng Fajardo. Please see addendum for further details. Admission and Anticipated Discharge Date Admission Date: December 12, 2022 Supervising Physician Co-Signing Physician Notes Patient is seen and examined at bedside. States having multiple bowel movements overnight. Denies any nausea, vomiting, abdominal pain, chest pain, dyspnea. On exam patient is moderately built and nourished, no apparent distress, normocephalic atraumatic, EOMI, normal breath sounds, clear to auscultation, irregularly irregular, no murmur, no pedal edema, abdomen soft, nontender, nondistended,+ well-healed past surgical scar, bowel sounds present, alert, awake, oriented, grossly no focal deficits. Patient is admitted for management of small bowel obstruction, possible colitis. Imaging and blood work reviewed. Bowel obstruction slowly improving. Started on clear liquid diets. Appreciate surgery input. Replace electrolytes as needed. Monitor LFTs. I personally reviewed the record. Patient is interviewed and examined at bedside. Patient's care is coordinated with Nichol Marquez PA-C. Please refer to the documentation above for details of patient's presentation and for discussion of other issues. Subjective Pt seen and examined in room 384-2. Follow up SBO with hx of whipple in 10/26 pancreatic ca. HE denies abd pain, bloating, n/v, f/c/s, chest pain or SoB. He c/o chronic diarrhea since his whipple and moves his bowels 6x a day. This is still the case. He is passing gas. Review of Systems Review of Systems: All systems reviewed & are unremarkable except as noted in HPI & below Physical Exam Physical Exam: Gen: WD/WN, Thin, Male, lying in bed, NAD, A&O x3 HEENT: Normocephalic, atraumatic, conjunctivae moist, sclerae anicteric, mucous membranes moist. Lung: Clear to Auscultation bilaterally, no wheezes/rales/rhonchi Heart: IRR/IRR, no murmurs, rubs, or gallops Abdomen: +surgical scar in RUQ, Soft, NT, ND +BS x 4 but hypoxactive Extremities: No edema Skin: Warm, no rash, negative turgor. Results & Data Results & Data Vital Signs (Past 12 Hours) Vital Signs Temp Pulse Pulse Resp BP Pulse Ox O2 Del Method 12/13/22 09:37 87 135/81 12/13/22 07:34 36.6 C 81 16 122/71 98 Room Air Laboratory Results Short CBC 12/12/22 12/13/22 Range/Units 19:28 07:48 WBC 7.71 5.24 (4.8-10.8) K/ul Hgb 11.2 L 9.4 L (14.0-18.0) g/dl Hct 32.6 L 27.4 L (42.0-52.0) % Plt Count 147 105 L (130-400) K/uL BMP 12/12/22 12/13/22 19:28 07:48 Sodium 136 137 Potassium 3.1 L 3.1 L Chloride 101 105 Carbon Dioxide 28 28 BUN 15 13 Creatinine 1.12 1.00 Glucose 93 82 Calcium 8.5 7.5 L Liver Function 12/12/22 12/13/22 Range/Units 19:28 07:48 Total Bilirubin 1.3 H 1.2 H (0.2-1.0) mg/dl Direct Bilirubin 0.5 H (0-0.2) mg/dl AST 167 H 108 H (13-39) U/L ALT 81 H 64 H (7-52) U/L Alkaline Phosphatase 198 H 161 H (34-104) U/L Albumin 3.3 L 2.6 L (3.4-5.0) gm/dl Urine 12/12/22 Range/Units 22:20 Urine Color Yellow Urine Appearance Clear (Clear) Urine pH 5.0 (4.5-7.5) Ur Specific [place] 1.011 (1.000-1.030) Urine Protein Negative (Negative) Urine Glucose (UA) Negative (Negative) Diagnostic Findings KUB X-Ray 12/13/22 09:00 XR KUB/Abdomen 1 view CLINICAL HISTORY: sbo TECHNIQUE: 1 view of the abdomen was obtained. Comparison: Comparison is made to CT abdomen pelvis 12/12/2022 FINDINGS: Cholecystomy clips are seen in the right upper quadrant. Right femoral arthroplasty noted. A PICC sagittal radiodensity projects over the left upper quadrant, which represents a change from the prior CT where it was in the right upper quadrant. Degenerative changes are seen in the visualized skeleton. There is a paucity of small bowel gas but there is suggestion of distended loops measuring up to 34 mm. Small stool burden is seen. IMPRESSION: Suggestion of distended loops of small bowel without decompression of the colon. Findings may represent partial small bowel obstruction versus ileus. ACT 112: Negative or not required by law. Electronically signed by: Betito Loyola M.D. 12/13/2022 11:05 AM Medications Administered Current Inpatient Medications Acetaminophen (Acetaminophen 325 Mg Tab) 650 mg PO Q4H PRN PRN Reason: pain/fever Stop: 01/11/23 23:55 Ascorbic Acid (Ascorbic Acid 500 Mg Tab) 1,000 mg PO DAILY [facility] Stop: 01/12/23 08:59 Last Admin: 12/13/22 09:38 Dose: 1,000 mg Aspirin (Aspirin 81 Mg Ectab) 81 mg PO DAILY [facility] Stop: 01/12/23 08:59 Last Admin: 12/13/22 09:38 Dose: 81 mg Clopidogrel Bisulfate (Clopidogrel Bisulfate 75 Mg Tab) 75 mg PO QAM [facility] Stop: 01/12/23 08:59 Last Admin: 12/13/22 09:38 Dose: 75 mg Digoxin (Digoxin 0.125 Mg Tab) 0.125 mg PO MoWeFr@1600 [facility] Stop: 01/12/23 15:59 Ferrous Sulfate (Ferrous Sulfate 325 Mg Tab) 325 mg PO BID [facility] Stop: 01/12/23 08:59 Last Admin: 12/13/22 09:38 Dose: 325 mg Furosemide (Furosemide 80 Mg Tab) 80 mg PO QAM [facility] Stop: 01/12/23 08:59 Last Admin: 12/13/22 09:39 Dose: 80 mg Furosemide (Furosemide 20 Mg Tab) 20 mg PO QAM [facility] Stop: 01/12/23 08:59 Last Admin: 12/13/22 09:38 Dose: 20 mg Heparin Sodium (Porcine) (Heparin Sod 5,000 Unit/0.5 Ml Vial) 5,000 units SQ Q12 [facility] Stop: 01/12/23 08:59 Last Admin: 12/13/22 09:39 Dose: 5,000 units Sodium Chloride (Nss 1000ml) 1,000 mls @ 75 mls/hr IV .[id number] [facility] Stop: 01/11/23 23:55 Last Admin: 12/13/22 00:51 Dose: 75 mls/hr Metoprolol Succinate (Metoprolol Succ 50mg Ext Rel Tab) 100 mg PO DAILY [facility] Stop: 01/12/23 08:59 Last Admin: 12/13/22 09:39 Dose: 100 mg Morphine Sulfate (Morphine Sulfate 4 Mg/Ml 1 Ml Carp\Vial) 3 mg IV Q4H PRN PRN Reason: Severe Pain (Scale 7, 8, 9,10) Stop: 12/26/22 23:55 Ondansetron HCl (Ondansetron Inj 2 Mg/Ml 2 Ml Vial) 4 mg IV Q6H PRN PRN Reason: Nausea Stop: 01/11/23 23:55 Pantoprazole Sodium (Pantoprazole 40 Mg Tab) 40 mg PO DAILY [facility] Stop: 01/12/23 08:59 Last Admin: 12/13/22 10:21 Dose: 40 mg Potassium Chloride (Potassium Chloride Crtab 20 Meq Tabcr) 20 meq PO QAM [facility] Stop: 01/13/23 08:59 Potassium Chloride (Potassium Chloride Crtab 20 Meq Tabcr) 40 meq PO ONE ONE Stop: 12/13/22 16:01 Vitamin D (Cholecalciferol 5,000 Units 125 Mcg Tab) 5,000 units PO DAILY [facility] Stop: 01/12/23 08:59 Last Admin: 12/13/22 09:39 Dose: 5,000 units (4) Atrial fibrillation Atrial fibrillation type: unspecified Qualified Code(s): I48.91 - Unspecified atrial fibrillation
[2022-12-13 15:02] LABS: Estimated Average Glucose 114 mg/dl; Hemoglobin A1C 5.6 % (4.5-5.6)
[2022-12-13] MEDS ORDERED: POTASSIUM CHLORIDE CRTAB 20 MEQ TABCR PO ONE (16:00)
[2022-12-13] MEDS ORDERED: DIGOXIN 0.125 MG TAB PO SCH (16:00)
[2022-12-13 16:38] LABS: Adenovirus F 40/41 PCR Not Detected (NotDetected); Astrovirus PCR Not Detected (NotDetected); Campylobacter PCR Not Detected (NotDetected); Cryptosporidium PCR Not Detected (NotDetected); Cyclospora cayetanensis PCR Not Detected (NotDetected); Entamoeba histolytica PCR Not Detected (NotDetected); Enteroaggregative E.coli(EAEC) Not Detected (NotDetected); Enteropathogenic E.coli (EPEC) Not Detected (NotDetected); Enterotoxigenic E.coli (ETEC) Not Detected (NotDetected); Giardia lamblia PCR Not Detected (NotDetected); Norovirus GI/GII PCR Not Detected (NotDetected); Plesiomonas shigelloides PCR Not Detected (NotDetected); Rotavirus A PCR Not Detected (NotDetected); Salmonella PCR Not Detected (NotDetected); Sapovirus PCR Not Detected (NotDetected); Shiga-like Toxin E.coli (STEC) Not Detected (NotDetected); Shigella/Enteroinvasive E.coli Not Detected (NotDetected); Vibrio cholerae PCR Not Detected (NotDetected); Vibrio species PCR Not Detected (NotDetected); Yersinia enterocolitica PCR Not Detected (NotDetected)
[2022-12-14 08:29] LABS: Basophils # (auto) 0.02 K/uL (0-0.2); Basophils % (auto) 0.5 %; Eosinophils % (auto) 2.6 %; Hematocrit (blood only) 28.2 % (42.0-52.0); Hemoglobin 9.9 g/dl (14.0-18.0); Immature Granulocytes # (auto) 0.02 K/uL (0.01-0.20); Immature Granulocytes % (auto) 0.5 %; Lymphocytes % (auto) 17.9 %; Mean Corpuscular Hemoglobin 31.2 pg (25.0-34.0); Mean Corpuscular Hgb Conc 35.1 g/dL (32.0-36.0); Monocytes # (auto) 0.45 K/uL (0.11-0.59); Monocytes % (auto) 11.5 %; Neutrophils # (auto) 2.61 K/uL (1.40-6.50); Platelet Count 114 K/uL (130-400); RDW Coefficient of Variation 13.8 % (11.5-14.5); RDW Standard Deviation 44.8 fL (36.4-46.3); Red Blood Count 3.17 M/uL (4.70-6.10)
[2022-12-14 08:45] LABS: Albumin Level 2.4 gm/dl (3.4-5.0); BUN Creatinine Ratio 10.6 (10-20); Bilirubin,Total 1.1 mg/dl (0.2-1.0); Calcium 7.7 mg/dl (8.6-10.3); Creatinine Clr Calc Pharmacy 60.6 ml/min; Est GFR (African American) 88.4 ml/min; Est GFR (Non-African American) 76.3 ml/min; Globulin 2.4 gm/dl (2.5-4.0); Magnesium 1.6 mg/dl (1.7-2.4); Potassium 3.3 mmol/L (3.5-5.1); Total Protein 4.8 gm/dl (6.0-8.3)
[2022-12-14] MEDS: ASCORBIC ACID 500 MG TAB PO SCH (08:46)
[2022-12-14] MEDS: CHOLECALCIFEROL 5,000 UNITS 125 MCG TAB PO SCH (08:47)
[2022-12-14] MEDS: ASPIRIN 81 MG ECTAB PO SCH (08:47)
[2022-12-14] MEDS: CLOPIDOGREL BISULFATE 75 MG TAB PO SCH (08:48)
[2022-12-14] MEDS: FUROSEMIDE 20 MG TAB PO SCH (08:49)
[2022-12-14] MEDS: FERROUS SULFATE 325 MG TAB PO SCH (08:49)
[2022-12-14] MEDS: FUROSEMIDE 80 MG TAB PO SCH (08:50)
[2022-12-14] MEDS: METOPROLOL SUCC 50MG EXT REL TAB PO SCH (08:50)
[2022-12-14] MEDS: PANTOprazole 40 MG TAB PO SCH (08:51)
[2022-12-14] MEDS ORDERED: POTASSIUM CHLORIDE CRTAB 20 MEQ TABCR PO SCH ×2 (09:00→21:00)
[2022-12-14] MEDS: HEPARIN SOD 5,000 UNIT/0.5 ML VIAL SQ SCH (09:13)
[2022-12-14] MEDS ORDERED: MAGNESIUM SULFATE / D5W 1 GM/100 ML BAG IV ONE (09:34)
[2022-12-14] MEDS ORDERED: POTASSIUM CHLORIDE CRTAB 20 MEQ TABCR PO ONE (09:35)
--- NOTE | 2022-12-14 10:29 | Surgery Progress Note ---
Date of Service December 14, 2022 Assessment & Plan (1) SBO (small bowel obstruction): Plan: Resolved Abdomen completely benign t. bili and lfts improving Plan: can advance to low fiber diet, if does well can likely discharge home Low fiber diet for 2 weeks and then slowly increase fiber into diet should monitor t. bili and LFTS for resolution given CT scan findings with dilated fluid filled pancreaticobiliary limb Dr. javed has seen and examined patient , agrees with above Admission and Anticipated Discharge Date Admission Date: December 12, 2022 Supervising Physician Co-Signing Physician Notes I have seen and examined the patient agree with above assessment and plan. He is doing quite well. We can advance his diet to low fiber. He may be discharged to home. If he develops any further pain or concerning symptoms he is to return immediately. Subjective wants to get home, is home alone no abdominal pain no n,v passing gas and bowel movements hungry Physical Exam Constitutional: WD/WN, vitals as above cooperative and comfortable; no acute distress and not ill appearing Neck: normal visual inspection and trachea midline Gastrointestinal (Abdomen): Inspection/Auscultation: abdomen normal to inspection, normal bowel sounds and + abdominal surgical scar (RUQ scar); abdomen not distended Percussion/Palpation: abdomen soft; abdomen nontender, no guarding and abdomen not rigid Skin: no rashes, warm and dry Psychiatric: Orientation: alert Results & Data Vital Signs (Past 12 Hours) Vital Signs Temp Pulse BP Pulse Ox O2 Del Method 12/14/22 07:51 36.6 C 76 145/77 H 95 Room Air Laboratory Results 12/14/22 12/14/22 12/13/22 Range/Units 07:39 07:39 15:00 WBC 3.90 L (4.8-10.8) K/ul RBC 3.17 L (4.70-6.10) M/uL Hgb 9.9 L (14.0-18.0) g/dl Hct 28.2 L (42.0-52.0) % MCV 89.0 (80.0-100.0) fL MCH 31.2 (25.0-34.0) pg MCHC 35.1 (32.0-36.0) g/dL RDW Std Deviation 44.8 (36.4-46.3) fL RDW Coeff of Aleks 13.8 (11.5-14.5) % Plt Count 114 L (130-400) K/uL MPV 11.0 (9.4-12.4) fL Immature Gran % (Auto) 0.5 % Neut % (Auto) 67.0 % Lymph % (Auto) 17.9 % Merrick % (Auto) 11.5 % Eos % (Auto) 2.6 % Baso % (Auto) 0.5 % Neut # (Auto) 2.61 (1.40-6.50) K/uL Lymph # (Auto) 0.70 L (1.2-3.4) K/uL Merrick # (Auto) 0.45 (0.11-0.59) K/uL Eos # (Auto) 0.10 (0-0.50) K/uL Baso # (Auto) 0.02 (0-0.2) K/uL Immature Gran # (Auto) 0.02 (0.01-0.20) K/uL Sodium 137 (136-145) mmol/L Potassium 3.3 L (3.5-5.1) mmol/L Chloride 104 (98-107) mmol/L Carbon Dioxide 29 (21-32) mmol/L Anion Gap 4 (3-11) BUN 10 (6-23) mg/dl Creatinine 0.94 (0.6-1.4) mg/dl Est Cr Clr Drug Dosing 60.6 ml/min Est GFR ( Amer) 88.4 ml/min Est GFR (Non-Af Amer) 76.3 ml/min BUN/Creatinine Ratio 10.6 (10-20) Glucose 77 (70-99(Fasting)) mg/dl Estimat Average Glucose mg/dl Hemoglobin A1c (4.5-5.6) % Calcium 7.7 L (8.6-10.3) mg/dl Magnesium 1.6 L (1.7-2.4) mg/dl Total Bilirubin 1.1 H (0.2-1.0) mg/dl AST 68 H (13-39) U/L ALT 50 (7-52) U/L Alkaline Phosphatase 146 H (34-104) U/L Total Protein 4.8 L (6.0-8.3) gm/dl Albumin 2.4 L (3.4-5.0) gm/dl Globulin 2.4 L (2.5-4.0) gm/dl Albumin/Globulin Ratio 1.0 (0.9-2) Stl C. cayetanensis PCR Not Detected (NotDetected) Stool Rotavirus A PCR Not Detected (NotDetected) Stl Adenov F 40/41 PCR Not Detected (NotDetected) Stool Astrovirus (PCR) Not Detected (NotDetected) Stool Campylobacter PCR Not Detected (NotDetected) Stl C. diff Tox B Gene (Neg) Stool Cryptosporidium PCR Not Detected (NotDetected) Stl E.coli Shiga Tox PCR Not Detected (NotDetected) Stl Enterotoxigenic E PCR Not Detected (NotDetected) Stool EPEC (PCR) Not Detected (NotDetected) Stool EAEC (PCR) Not Detected (NotDetected) Stl E. histolytica PCR Not Detected (NotDetected) Stool Giardia Lamblia PCR Not Detected (NotDetected) Stool Salmonella PCR Not Detected (NotDetected) Stool Sapovirus (PCR) Not Detected (NotDetected) Stl P. shigelloides PCR Not Detected (NotDetected) Stl Shigella/EIEC PCR Not Detected (NotDetected) St Y.enterocolitica PCR Not Detected (NotDetected) Stool Vibrio (PCR) Not Detected (NotDetected) Stl Vibrio cholerae PCR Not Detected (NotDetected) Stl Norovirus GI/GII PCR Not Detected (NotDetected) 12/13/22 12/13/22 Range/Units 15:00 07:48 WBC (4.8-10.8) K/ul RBC (4.70-6.10) M/uL Hgb (14.0-18.0) g/dl Hct (42.0-52.0) % MCV (80.0-100.0) fL MCH (25.0-34.0) pg MCHC (32.0-36.0) g/dL RDW Std Deviation (36.4-46.3) fL RDW Coeff of Aleks (11.5-14.5) % Plt Count (130-400) K/uL MPV (9.4-12.4) fL Immature Gran % (Auto) % Neut % (Auto) % Lymph % (Auto) % Merrick % (Auto) % Eos % (Auto) % Baso % (Auto) % Neut # (Auto) (1.40-6.50) K/uL Lymph # (Auto) (1.2-3.4) K/uL Merrick # (Auto) (0.11-0.59) K/uL Eos # (Auto) (0-0.50) K/uL Baso # (Auto) (0-0.2) K/uL Immature Gran # (Auto) (0.01-0.20) K/uL Sodium (136-145) mmol/L Potassium (3.5-5.1) mmol/L Chloride (98-107) mmol/L Carbon Dioxide (21-32) mmol/L Anion Gap (3-11) BUN (6-23) mg/dl Creatinine (0.6-1.4) mg/dl Est Cr Clr Drug Dosing ml/min Est GFR ( Amer) ml/min Est GFR (Non-Af Amer) ml/min BUN/Creatinine Ratio (10-20) Glucose (70-99(Fasting)) mg/dl Estimat Average Glucose 114 mg/dl Hemoglobin A1c 5.6 (4.5-5.6) % Calcium (8.6-10.3) mg/dl Magnesium (1.7-2.4) mg/dl Total Bilirubin (0.2-1.0) mg/dl AST (13-39) U/L ALT (7-52) U/L Alkaline Phosphatase (34-104) U/L Total Protein (6.0-8.3) gm/dl Albumin (3.4-5.0) gm/dl Globulin (2.5-4.0) gm/dl Albumin/Globulin Ratio (0.9-2) Stl C. cayetanensis PCR (NotDetected) Stool Rotavirus A PCR (NotDetected) Stl Adenov F 40/41 PCR (NotDetected) Stool Astrovirus (PCR) (NotDetected) Stool Campylobacter PCR (NotDetected) Stl C. diff Tox B Gene Negative Cdiff Gene (Neg) Stool Cryptosporidium PCR (NotDetected) Stl E.coli Shiga Tox PCR (NotDetected) Stl Enterotoxigenic E PCR (NotDetected) Stool EPEC (PCR) (NotDetected) Stool EAEC (PCR) (NotDetected) Stl E. histolytica PCR (NotDetected) Stool Giardia Lamblia PCR (NotDetected) Stool Salmonella PCR (NotDetected) Stool Sapovirus (PCR) (NotDetected) Stl P. shigelloides PCR (NotDetected) Stl Shigella/EIEC PCR (NotDetected) St Y.enterocolitica PCR (NotDetected) Stool Vibrio (PCR) (NotDetected) Stl Vibrio cholerae PCR (NotDetected) Stl Norovirus GI/GII PCR (NotDetected)
[2022-12-14] MEDS: SODIUM CHLORIDE 0.9% 1000ML 1,000 ML IV SCH (10:39)
--- NOTE | 2022-12-14 15:33 | Discharge Summary ---
Discharge Summary Date of Service December 14, 2022 Notes For Next Care Provider Admitted for small bowel obstruction, colitis that have resolved. CT findings with dilated fluid filled pancreaticobiliary limb, h/o Whipple procedure in 2009 Liver enzymes initially elevated and are downtrending- trend in outpatient setting Medication Changes From Visit Magnesium and potassium supplementation x 10 days, repeat labs as OP Admission HPI Per Admitting Provider This is an 82-year-old male with past medical history significant for chronic AFib, systolic and diastolic EF of 45-49% on echo in July 2022. On recent echo in November 2022, EF is 50-54%, moderate mitral regurgitation, severe tricuspid regurgitation, history of nonsustained V-tach, frequent PVCs, hypertension, hyperlipidemia, obstructive sleep apnea, not on CPAP, former smoker, history of pancreatic cancer, status post Whipple and chemoradiation in 2009, GERD, irritable bowel syndrome, history of GI bleed in 2019, status post clipping, history of diabetes type 2, peripheral artery disease, history of CVA in July 2022 with a left MCA ischemic stroke with left ICA occlusion, status post mechanical thrombectomy of LICA , he presented to [facility] [place] with right hemiparesis, aphasia, dysarthria, neglect of the right side of his body and right sided gaze deviation and after thrombectomy, he had only minimal aphasia, discharged to continued rehabilitation. Currently, he is doing fine as per . He is walking, ambulating without support sometimes even though he his leg gives away. Eating and drinking okay. Currently, the patient is alert and oriented. Speech is clear .He went to PCP office because the last 2-3 days, he is having abdominal pain, but it got worsened since yesterday. Went to at PCP office and was sent here for CAT scan, done here in [facility] . Ct scan showing" The pancreaticobiliary limb appears dilated and fluid filled measuring up to 3.7 cm in diameter. Findings are highly suspicious for obstruction of his loop and this may be a closed loop type obstruction related to internal hernia, and nonspecific colitis of the left colon". The patient states he has several bowel movements every day since Whipple procedure and his last bowel movement was around 2-3 p.m. today after that he is just passing gas . ER physician spoke to Surgery on-call and because currently he is passing gas and his abdomen is not that distended or that much tender on palpation was recommended to observe. The patient is currently resting comfortably, hemodynamically stable . Denies any headache, no dizziness, no blurred visions, no earache, no runny nose, no sore throat, no cough, no difficulty swallowing. No chest pain, no shortness of breath, no nausea, no vomiting. Abdominal pain is much improved now.. Normal bladder movements. No swelling in the legs. Admission Exam Per Admitting Provider GENERAL: The patient is of moderate build, not in acute distress. VITAL SIGNS: Temperature 36.2, pulse 72, respiratory rate 20, blood pressure 121/74, oxygen 96% on room air. HEENT: Pupils equal, round and reactive to light. Oral mucosa moist. NECK: No JVD. No neck masses. CARDIOVASCULAR: S1 and S2 heard. Regular rate and rhythm. No murmur, no gallop. RESPIRATORY SYSTEM: Normal AP diameter. No accessory muscle use. No wheezing or crackles. ABDOMEN: Soft, bowel sounds very sluggish, nontender, no distention. CENTRAL NERVOUS SYSTEM: Cranial nerves II through XII grossly intact, nonfocal. EXTREMITIES: No pedal edema present, no erythema seen. Principal Dx & Hospital Course #1 = Principal Diagnosis (1) SBO (small bowel obstruction): (2) Colitis: (3) Diabetes mellitus, type II: (4) Atrial fibrillation: (5) Chronic ischemic cerebrovascular accident (CVA) involving left middle cerebral artery territory: (6) CKD (chronic kidney disease) stage 3, GFR 30-59 ml/min: (7) History of pancreatic cancer: Plan This is an 82M who has significant PMH of PAF, Chronic systolic/diastolic CHF, moderate MR, severe TR, hx of nonsustained vtach, HTN, HLD, OMKAR not on cpap, hx of pancreatic ca s/p whipple and chemoradiation in 2009, GERD, hx of GIB in 2019 s/o cliping, hx of Ischemic Left MCA stroke s/p thrombectomy with residual memory deficit presented to ED after abnormal CT scan revealed pancreatobiliary limb appears dilated and fluid-filled measuring up to 3.7 cm in diameter highly suspicious of obstruction of this loop which may be a closed-loop type obstruction related to internal hernia and nonspecific colitis of left colon. KUB shows residual partial SBO vs ileus and was evaluated by general surgery. Managed conservatively with bowel rest and it has resolved. At baseline has frequent loose stools due to history of Whipple. Advanced to low fiber diet to continue for 2 weeks before adding additional fiber. Of note, patient with transaminitis on admission that has downtrended. Recommend follow up CMP in outpatient setting given dilated pancreatobiliary limb and h/o Whipple. Hypokalemia and hypomagnesemia noted during admission - will discharge on on electrolyte supplementation for 10 days with recommendation for follow up lab work with PCP. Patient comfortable and hemodynamically stable at time of discharge. Discharge Exam Gen: WD/WN, NAD, sitting up in bed, A&Ox3 HEENT: Normocephalic, atraumatic, conjunctivae moist, sclerae anicteric, mucous membranes moist Lung: Clear to Auscultation bilaterally, no wheezes/rales/rhonchi Heart: Regular rate, regular rhythm, no murmurs, rubs, or gallops Abdomen: Soft, NT, ND +BS x 4 Extremities: no edema Skin: Warm, no rash Updated Medication List Medication Instructions Recorded Confirmed Type digoxin 125 mcg (0.125 mg) tablet 0.125 mcg PO 3XWK 01/26/20 12/12/22 History cholecalciferol (vitamin D3) 125 5,000 unit PO DAILY 02/15/21 12/12/22 History mcg (5,000 unit) capsule ferrous sulfate 325 mg (65 mg 325 mg PO BID 02/15/21 12/12/22 History iron) tablet pantoprazole 40 mg tablet,delayed 40 mg PO DAILY 02/15/21 12/12/22 History release amoxicillin 500 mg capsule 2,000 mg PO DIRECTED PRN PRIOR 12/12/22 12/12/22 History TO DENTAL APPT. ascorbic acid (vitamin C) 1,000 mg 1 g PO DAILY 12/12/22 12/12/22 History tablet (Vitamin C) aspirin 81 mg tablet,delayed 81 mg PO DAILY 12/12/22 12/12/22 History release clopidogrel 75 mg tablet (Plavix) 75 mg PO QAM 12/12/22 12/12/22 History furosemide 20 mg tablet (Lasix) 20 mg PO QAM 12/12/22 12/12/22 History furosemide 80 mg tablet (Lasix) 80 mg PO QAM 12/12/22 12/12/22 History metoprolol succinate 100 mg 100 mg PO DAILY 12/12/22 12/12/22 History tablet,extended release 24 hr magnesium chloride 64 mg 64 mg PO BID #20 tabs 12/14/22 Rx (magnesium chloride) tablet,delayed release potassium chloride 20 mEq 20 meq PO DAILY #10 tabs 12/14/22 Rx tablet,extended release(part/cryst) Hospital Stay Data Consultations 12/12/22 21:57 ED Decision to Admit Stat 12/13/22 08:00 Consult General Surgery Routine Pending Results Patient Have Any Pending Studies at Discharge: No Discharge Instructions Given to Patient (Per Discharging Provider) Admitted for small bowel obstruction, colitis that have resolved. Liver enzymes initially elevated and are downtrending. MEDICATION CHANGES: Please continue electrolyte supplementation of magnesium and potassium for 10 days and follow up with primary care for lab work. Continue low fiber diet for 2 weeks and then can slowly increase fiber into diet Continue monitoring t bili and LFTs for resolution given CT findings with dilated fluid filled pancreaticobiliary limbgiven history of Whipple procedure RECOMMENDATIONS FOR FOLLOW-UP: Follow up with Dr. Grant as above. OTHER INSTRUCTIONS: Seek medical attention if you have: * temperature above 101 * chest pain or trouble breathing * abdominal pain, nausea, vomiting * diarrhea, dark stools or bloody stools * any unanswered questions or concerns Call 911 if symptoms are severe. Please take good care of yourself. Call if you have any questions or problems. You can reach a [facility] hospitalist on duty at [facility] 24 hours a day by calling [phone]. Total Time Total Time Spent Total Time Spent (In Minutes): 60 Supervising Physician Co-Signing Physician Notes Patient is seen and examined at bedside. States feeling well today. Denies nausea, vomiting, abdominal pain. Continues to have bowel movements. Tolerated low fiber diet. On exam patient is moderately built and nourished, no apparent distress, normocephalic atraumatic, EOMI, normal breath sounds, clear to auscultation, irregularly irregular, no murmur, no pedal edema, abdomen soft, nontender, nondistended,+ well-healed past surgical scar, bowel sounds present, alert, awake, oriented, grossly no focal deficits. Patient is admitted for management of small bowel obstruction, possible colitis. Imaging and blood work reviewed. Bowel obstruction resolved. Stool studies negative, tolerated low fiber diet. Appreciate surgery input. Replace electrolytes as needed. I personally reviewed the record. Patient is interviewed and examined at bedside. Patient's care is coordinated withJoann Clark PA-C. Please refer to the documentation above for details of patient's presentation and for discussion of other issues.
--- NOTE | 2022-12-22 10:58 | Coding Query ---
A supporting diagnosis is required for the test/procedure performed on this patient in order for us to be reimbursed by the patient's insurance. Please provide a supporting diagnosis for the following test/procedure listed below next to the test name along with your signature. *If there is no additional diagnosis for this patient that would support the following test/procedure please document that below next to the test/procedure. Test(s)/Procedure(s) that require a supporting diagnosis: * 59230 GI GASTROINTESTINAL PANEL DIAGNOSIS: Colitis/Diarrhea DATE OF SERVICE: 12/13/22 Provider Signature: Nichol Marquez Date: ___12/22/22____ Thank you Srikanth Bradley [facility] Information Management Once completed, please kindly fax back to [phone] For questions please call [phone] [facility] [facility]
== END 2022-12-14 16:18 | disposition home or self-care (01) | DRG 389 ==
LOC: ED 18:45 → SUATTDRO 22:56 → 3N 22:56 → INTOOBSV 22:56 → 3N 12-13 00:24